=== PATIENT | male | born 1955 ===

== ENCOUNTER 2017-07-16 20:33 | Emergency (ER) | payer OTHER ==
[~2017-07-16] VITALS: Ht 167.6 cm; Wt 88.9 kg
[~2017-07-16 20:33] MED LIST: ASPI325 PO; ASPI81CH PO; ASPI81EC PO; CARI350 PO; CELE100 PO; CHLO25B PO; DULO60 PO; ERYT.5TO OD; FURO40 PO; GABA400 PO; GABA600 PO; GABA800 PO; Glucophage1000 MG PO; HYDACE5 PO; HYDR-86; Hygroton50 MG PO; INS70/30PN SC; INSDET100 SQ; INSULANPEN; LEVFLO500 PO; LEVSOD100 PO; LEVSOD125 PO; LEVSOD137 PO; LISHYD2012 PO; LISI20 PO; LISINOPRIL PO; LOVA20 PO; Lantus100 UNIT/1 SC; MEDICAL MARIJUANA; METF500 PO; MULVITMIND PO; Micro-K10 MEQ PO; NEBI10 PO; NEBI5 PO; Norco 5-325 Ta1 EACH PO; Norco 7.5-3251 EACH PO; Nortriptyline H50 MG PO; Novolog100 UNIT/1 SC; OXYACE5T PO; POTA10T PO; PRAV20 PO; PRAVASTATIN 40MG PO; Penlac6.6 ML TP; Pravastatin Sod40 MG PO; TERB250 PO; TIOT18 INH; VITAMIN D35000 UNIT PO; Ventolin/Prove6.7 GM INH; Zestril40 MG PO
[2017-07-16] MEDS ORDERED: CHLO25B PO (20:47)
[2017-07-16] MEDS ORDERED: Norco 5-325 Ta1 EACH PO (22:57)
== END 2017-07-16 23:28 | disposition home or self-care (01) ==
LOC: ER 20:33
DX: S46.022A Laceration of muscle(s) and tendon(s) of the rotator cuff of left shoulder, initial encounter (principal); S16.1XXA Strain of muscle, fascia and tendon at neck level, initial encounter; E11.9 Type 2 diabetes mellitus without complications; I10 Essential (primary) hypertension; Z96.653 Presence of artificial knee joint, bilateral; Z87.891 Personal history of nicotine dependence; Z79.82 Long term (current) use of aspirin; Z79.899 Other long term (current) drug therapy; Z79.4 Long term (current) use of insulin; W18.30XA Fall on same level, unspecified, initial encounter
CPT/HCPCS: 29105; 72125; 73030; 73200; 96374; 96375; 96376; 99284; J1170; J2405

== ENCOUNTER 2018-01-19 21:03 | Emergency (ER) | payer OTHER ==
[~2018-01-19] VITALS: Ht 165.1 cm; Wt 90.7 kg
== END 2018-01-20 01:53 | disposition home or self-care (01) ==
LOC: ER 21:03
DX: S09.90XA Unspecified injury of head, initial encounter (principal); S80.212A Abrasion, left knee, initial encounter; M54.2 Cervicalgia; M25.512 Pain in left shoulder; W18.30XA Fall on same level, unspecified, initial encounter; E11.42 Type 2 diabetes mellitus with diabetic polyneuropathy; E66.9 Obesity, unspecified; I10 Essential (primary) hypertension; Z79.899 Other long term (current) drug therapy; Z79.4 Long term (current) use of insulin; Z79.84 Long term (current) use of oral hypoglycemic drugs; Z79.82 Long term (current) use of aspirin
CPT/HCPCS: 36415; 70450; 72125; 73030; 73562-LT; 99284-25

== ENCOUNTER 2018-04-15 11:54 | Emergency (ER) | payer OTHER ==
[~2018-04-15] VITALS: Ht 167.6 cm; Wt 90.7 kg
[2018-04-15] MEDS ORDERED: Roxicodone5 MG PO (14:45)
== END 2018-04-15 15:37 | disposition home or self-care (01) ==
LOC: ER 11:54
DX: S09.90XA Unspecified injury of head, initial encounter (principal); S40.012A Contusion of left shoulder, initial encounter; S10.93XA Contusion of unspecified part of neck, initial encounter; E11.42 Type 2 diabetes mellitus with diabetic polyneuropathy; I10 Essential (primary) hypertension; Z79.899 Other long term (current) drug therapy; Z79.4 Long term (current) use of insulin; Z79.51 Long term (current) use of inhaled steroids; Z79.82 Long term (current) use of aspirin; Z87.891 Personal history of nicotine dependence; W05.0XXA Fall from non-moving wheelchair, initial encounter
CPT/HCPCS: 70450; 72125; 73030; 96374; 99283-25; J1170

== ENCOUNTER → 2019-03-30 | Outpatient (CLI) | payer OTHER ==
[~2019-03-30] MED LIST changes: +Acetaminophen650 M1 PO; +Aspirin EC81 MG PO; +BACL10 PO; +IBUP600 PO; -INSULANPEN; +INSULANPEN SC; +K-Dur 20 meq T20 MEQ PO; +PREG100 PO; +Roxicodone5 MG PO
[2019-03-30 14:39] LABS: BASOPHILS ABSOLUTE AUTO 0.05 K/mm3 (0.00-0.23); BASOPHILS PERCENT AUTO 0 % (0-2); EOSINOPHILS ABSOLUTE AUTO 0.18 K/mm3 (0.00-0.68); EOSINOPHILS PERCENT AUTO 1 % (0-6); Hematocrit 47.6 % (37.0-53.0); Hemoglobin 16.4 g/dL (13.5-17.5); IMMATURE GRAN ABSOLUTE AUTO 0.07 K/mm3 (0.00-0.10); IMMATURE GRAN PERCENT AUTO 1 % (0-1); LYMPHOCYTES ABSOLUTE AUTO 2.37 K/mm3 (0.84-5.20); LYMPHOCYTES PERCENT AUTO 19 % (21-46); MONOCYTES ABSOLUTE AUTO 1.01 K/mm3 (0.16-1.47); MONOCYTES PERCENT AUTO 8 % (4-13); Mean Corpuscular HGB 30.8 pg (26.0-34.0); Mean Corpuscular HGB Conc 34.5 g/dL (31.5-36.5); Mean Corpuscular Volume 90 fL (80-100); Mean Platelet Volume 13.1 fL (9.1-12.4); NEUTROPHILS ABSOLUTE AUTO 8.87 K/mm3 (1.96-9.15); NEUTROPHILS PERCENT AUTO 71 % (41-73); Platelet Count 239 K/mm3 (150-400); RDW Standard Deviation 42.3 fL (35.1-46.3); Red Blood Cell Count 5.32 M/mm3 (4.30-5.90); White Blood Cell Count 12.55 K/mm3 (4.00-11.30)
[2019-03-30 14:42] LABS: Alanine Aminotransfer (ALT/SGP 17 U/L (12-78); Albumin, Blood 3.9 g/dL (3.4-5.0); Albumin/Globulin Ratio 0.9 (0.8-1.8); Alk Phos 101 U/L (50-136); Anion Gap 7 mmol/L (6-16); Aspartate Aminotrans (AST/SGOT 20 U/L (12-37); Bilirubin, Total 0.6 mg/dL (0.1-1.0); Blood Urea Nitrogen 26 mg/dL (8-24); CO2, Blood 21 mmol/L (21-32); Calcium, Blood 9.4 mg/dL (8.5-10.1); Chloride, Blood 102 mmol/L (98-108); Globulin, Blood 4.5 g/dL (2.2-4.0); Glomerular Filtration Rate >60 (60-); Glucose, Blood 313 mg/dL (70-99); Potassium, Blood 5.5 mmol/L (3.5-5.5); Sodium, Blood 130 mmol/L (136-145); Total Protein, Blood 8.4 g/dL (6.4-8.2)
[2019-03-30 14:43] LABS: Beta-hydroxybutyrate 2.2 mg/dL (0.2-2.8)
== END | disposition home or self-care (01) ==
LOC: LAB 13:24 → LAB SHORT 13:24
PROVIDERS: Family Medicine
DX: E11.69 Type 2 diabetes mellitus with other specified complication (principal)
CPT/HCPCS: 80053; 82010; 85025

== ENCOUNTER 2019-04-12 07:07 | Day surgery (SDC) | payer OTHER ==
[~2019-04-12] VITALS: Ht 167.6 cm; Wt 95.3 kg
--- NOTE | 2019-04-12 08:08 | NUR ---
04/12/19 0808 David Lyon FIRST IV ATTEMPT ON LEFT HAND, IV INFILTRATED. PT TOLERATED IV START WELL. PT BLOOD SUGAR 308 AT 0800, DR. COLLINS AWARE.
--- NOTE | 2019-04-12 09:23 | NUR ---
04/12/19 0923 Sharron Lockett PT. WAITING IN NE FOR [place]. PT. DRINKING COFFEE, JUICE, & COOKIES. WARM BLANKET GIVEN. PT. GIVEN HOME DISCHARGE INSTRUCTIONS WITH UNDERSTANDING. EYE KIT & INSTRUCTIONS IN PT.'S WALKER.
== END 2019-04-12 09:15 | disposition home or self-care (01) ==
LOC: ORSCSDS 07:07
PROVIDERS: Ophthalmology
PROC: 08RK3JZ Replacement of Left Lens with Synthetic Substitute, Percutaneous Approach (ICD-10-PCS; principal; 2019-04-12 08:30)
DX: H25.12 Age-related nuclear cataract, left eye (principal); I10 Essential (primary) hypertension; G47.33 Obstructive sleep apnea (adult) (pediatric); E11.9 Type 2 diabetes mellitus without complications; Z79.899 Other long term (current) drug therapy; Z79.4 Long term (current) use of insulin; Z79.82 Long term (current) use of aspirin; E66.9 Obesity, unspecified; Z68.33 Body mass index [BMI] 33.0-33.9, adult
CPT/HCPCS: 82947; J1815; J2001; J2250; J3010; J3301; J7040; J7120; V2632

== ENCOUNTER 2019-05-31 08:27 | Day surgery (SDC) | payer OTHER ==
[~2019-05-31] VITALS: Ht 170.2 cm; Wt 97.8 kg
[~2019-05-31 08:27] MED LIST changes: +BENGAY113 GM; +K-Dur20 MEQ PO; +MIRALAX17 GM PO; +NOVOLOG100 UNIT/1; +ROSADAN45 GM; +VITAMIN D35000 UNI2 PO; +ZESTRIL40 M1 PO
== END 2019-05-31 11:06 | disposition home or self-care (01) ==
LOC: ORSCSDS 08:27
PROVIDERS: Ophthalmology
PROC: 08RJ3JZ Replacement of Right Lens with Synthetic Substitute, Percutaneous Approach (ICD-10-PCS; principal; 2019-05-31 10:00)
DX: H25.11 Age-related nuclear cataract, right eye (principal); E11.36 Type 2 diabetes mellitus with diabetic cataract; I10 Essential (primary) hypertension; Z79.82 Long term (current) use of aspirin; Z79.4 Long term (current) use of insulin; Z79.899 Other long term (current) drug therapy
CPT/HCPCS: 82947; J2001; J2250; J3010; J3301; J7040; V2632

== ENCOUNTER 2020-03-27 18:15 | Emergency (ER) | payer OTHER ==
[~2020-03-27] VITALS: Ht 167.6 cm; Wt 95.2 kg
== END 2020-03-27 23:23 | disposition home or self-care (01) ==
LOC: ER 18:15
DX: M25.512 Pain in left shoulder (principal); M54.2 Cervicalgia; R42 Dizziness and giddiness; E11.40 Type 2 diabetes mellitus with diabetic neuropathy, unspecified; I10 Essential (primary) hypertension; E11.36 Type 2 diabetes mellitus with diabetic cataract; H26.9 Unspecified cataract; Z87.891 Personal history of nicotine dependence; Z79.82 Long term (current) use of aspirin; Z79.899 Other long term (current) drug therapy; Z79.4 Long term (current) use of insulin; W01.198A Fall on same level from slipping, tripping and stumbling with subsequent striking against other object, initial encounter
CPT/HCPCS: 70450; 72125; 73030; 96372; 99283-25; A9270; J1885

== ENCOUNTER 2020-09-04 19:30 | Inpatient (IN) | payer OTHER, MEDICARE ==
[~2020-09-04] VITALS: Ht 167.6 cm; Wt 90.5 kg
[~2020-09-04 19:30] MED LIST changes: +GLUCOPHAGE1000 M1 PO; -NOVOLOG100 UNIT/1; +NOVOLOG100 UNIT/2 SC; +PREG150 PO
[2020-09-04 20:27] LABS: BASOPHILS ABSOLUTE AUTO 0.02 K/mm3 (0.00-0.23); BASOPHILS PERCENT AUTO 0 % (0-2); EOSINOPHILS ABSOLUTE AUTO 0.14 K/mm3 (0.00-0.68); EOSINOPHILS PERCENT AUTO 2 % (0-6); Hematocrit 48.2 % (37.0-53.0); Hemoglobin 16.3 g/dL (13.5-17.5); IMMATURE GRAN ABSOLUTE AUTO 0.02 K/mm3 (0.00-0.10); IMMATURE GRAN PERCENT AUTO 0 % (0-1); LYMPHOCYTES ABSOLUTE AUTO 1.06 K/mm3 (0.84-5.20); LYMPHOCYTES PERCENT AUTO 15 % (21-46); MONOCYTES ABSOLUTE AUTO 0.69 K/mm3 (0.16-1.47); MONOCYTES PERCENT AUTO 9 % (4-13); Mean Corpuscular HGB 29.8 pg (26.0-34.0); Mean Corpuscular HGB Conc 33.8 g/dL (31.5-36.5); Mean Corpuscular Volume 88 fL (80-100); Mean Platelet Volume 11.6 fL (9.1-12.4); NEUTROPHILS PERCENT AUTO 74 % (41-73); Platelet Count 234 K/mm3 (150-400); RDW Standard Deviation 45.3 fL (35.1-46.3); Red Blood Cell Count 5.47 M/mm3 (4.30-5.90); White Blood Cell Count 7.33 K/mm3 (4.00-11.30)
[2020-09-04 20:42] LABS: Alanine Aminotransfer (ALT/SGP 25 U/L (12-78); Albumin, Blood 3.4 g/dL (3.4-5.0); Albumin/Globulin Ratio 0.7 (0.8-1.8); Alk Phos 102 U/L (50-136); Anion Gap 6 mmol/L (6-16); Aspartate Aminotrans (AST/SGOT 34 U/L (12-37); Bilirubin, Total 0.3 mg/dL (0.1-1.0); Blood Urea Nitrogen 16 mg/dL (8-24); Bun/Creatinine Ratio 17.8 (12.0-20.0); CO2, Blood 25 mmol/L (21-32); Calcium, Blood 8.8 mg/dL (8.5-10.1); Chloride, Blood 103 mmol/L (98-108); Globulin, Blood 4.7 g/dL (2.2-4.0); Glomerular Filtration Rate >60 (60-); Glucose, Blood 160 mg/dL (70-99); Potassium, Blood 4.6 mmol/L (3.5-5.5); Sodium, Blood 134 mmol/L (136-145); Total Protein, Blood 8.1 g/dL (6.4-8.2); Troponin I <0.015 ng/mL (0.000-0.040)
[2020-09-05 04:45] LABS: BASOPHILS ABSOLUTE AUTO 0.02 K/mm3 (0.00-0.23); BASOPHILS PERCENT AUTO 0 % (0-2); EOSINOPHILS ABSOLUTE AUTO 0.11 K/mm3 (0.00-0.68); EOSINOPHILS PERCENT AUTO 2 % (0-6); Hematocrit 44.1 % (37.0-53.0); Hemoglobin 14.4 g/dL (13.5-17.5); IMMATURE GRAN ABSOLUTE AUTO 0.01 K/mm3 (0.00-0.10); IMMATURE GRAN PERCENT AUTO 0 % (0-1); LYMPHOCYTES ABSOLUTE AUTO 1.37 K/mm3 (0.84-5.20); LYMPHOCYTES PERCENT AUTO 23 % (21-46); MONOCYTES ABSOLUTE AUTO 0.75 K/mm3 (0.16-1.47); MONOCYTES PERCENT AUTO 13 % (4-13); Mean Corpuscular HGB 29.7 pg (26.0-34.0); Mean Corpuscular HGB Conc 32.7 g/dL (31.5-36.5); Mean Corpuscular Volume 91 fL (80-100); Mean Platelet Volume 11.3 fL (9.1-12.4); NEUTROPHILS ABSOLUTE AUTO 3.67 K/mm3 (1.96-9.15); NEUTROPHILS PERCENT AUTO 62 % (41-73); Platelet Count 198 K/mm3 (150-400); RDW Coefficient Variation 14.3 % (11.7-14.2); RDW Standard Deviation 47.5 fL (35.1-46.3); Red Blood Cell Count 4.85 M/mm3 (4.30-5.90); White Blood Cell Count 5.93 K/mm3 (4.00-11.30)
[2020-09-05 05:03] LABS: Alanine Aminotransfer (ALT/SGP 24 U/L (12-78); Albumin, Blood 2.9 g/dL (3.4-5.0); Albumin/Globulin Ratio 0.7 (0.8-1.8); Alk Phos 84 U/L (50-136); Anion Gap 3 mmol/L (6-16); Aspartate Aminotrans (AST/SGOT 23 U/L (12-37); Bilirubin, Total 0.3 mg/dL (0.1-1.0); Blood Urea Nitrogen 13 mg/dL (8-24); Bun/Creatinine Ratio 13.2 (12.0-20.0); CO2, Blood 30 mmol/L (21-32); Calcium, Blood 8.4 mg/dL (8.5-10.1); Chloride, Blood 105 mmol/L (98-108); Creatinine, Blood 0.98 mg/dL (0.60-1.20); Glomerular Filtration Rate >60 (60-); Glucose, Blood 78 mg/dL (70-99); Potassium, Blood 4.5 mmol/L (3.5-5.5); Sodium, Blood 138 mmol/L (136-145); Total Protein, Blood 6.9 g/dL (6.4-8.2)
--- NOTE | 2020-09-05 05:18 | NUR ---
SHIFT SUMMARY RECIEVED REPORT FROM CONSTANCE ROBIN. PATIENT TO ROOM FROM ED @0115, SLID FROM STRETCHER TO THE BED. PATIENT ON 4L 02 VIA NC 02 SATS 96% WOULD DROP TO LOWER 90s WHILE SLEEPING. PATIENT IS A 2 PERSON ASSIST WITH REPOSITIONING AND BRIEF CHANGES. PATIENT COMPLAINING OF 9/10 LEFT SHOULDER PAIN THAT HE STATES IS A CHRONIC PAIN THAT WAS EXACERBATED BY HIS FALL, MEDICATED PER EMAR. PATIENT DENIES CP/PRESSURE. LEGS BANDAGED FROM PROCEDURE PATIENT HAD 09/04, BANDAGES C/D/I. CAP REFILL <3 SEC ON BLE, WARM, RED, PULSES PRESENT. VSS, NO ACUTE CHANGES. CALL LIGHT IN REACH, BED ALARM ON.
--- NOTE | 2020-09-05 15:50 | NUR ---
Spiritual care visit conducted. Patient is sitting on a chair and alert. Patient tells me about his medical history, his family history and his spiritual journey. Patient has come recovered from some very trying circumstances and continues to have a deep hope and ross. I reinforce helpful attitudes and practices and provide therapeutic listening and prayer. Patient responds well and shows signs of an even greater resolve to work toward wholeness. I will continue remain available to patient and family.
--- NOTE | 2020-09-05 18:21 | NUR ---
SHIFT SUMMARY PATIENT IS ALERT AND ORIENTED, COOPERATIVE WITH CARE. VSS, AT REST PATIENT MAINTAINS O2 SATS IN MID-90S. ON 4 L VIA NASAL CANNULA AT START OF SHIFT, TITRATED DOWN TO 3 L. PATIENT WORKED WITH PT/OT THIS SHIFT. UP WITH THIS RN TO BATHROOM WITH FRONT WHEEL WALKER. PATIENT WAS VISIBLY FATIGUED, BUT WAS ABLE TO AMBULATE SAFELY TO THE BATHROOM AND BACK, WITH O2 SAT DECREASING TO MID/HIGH 80S WITH ACTIVITY. AT REST WOULD INCREASE QUICKLY TO LOW 90S AGAIN. PATIENT WAS HYPOGLYCEMIC AT START OF SHIFT, PO INTAKE ENCOURAGED AND IMPROVEMENT ON BLOOD SUGAR RECHECK NOTED. PATIENT COMPLAINED OF SHOULDER PAIN T/O DAY, MEDICATED PER EMAR. PATIENT ENDORSES SEEING DR. SANTOS IN OFFICE YESTERDAY, STERI STRIPS NOTED ON BOTH LOWER EXTREMITIES.
--- NOTE | 2020-09-05 22:21 | NUR ---
ASSUMED CARE AT 1900 PT LAYING IN BED, IS ALERT/ORIENTED X4, AND ABLE TO MAKE HIS NEEDS KNOWN. SPO2 >92% ON 3L NC; SPO2 DECLINED TO MID 80'S DURING EXERTION TO BATHROOM BUT WAS ABLE TO RECOVER ON 3L ONCE ABLE TO REST. LIMITED MOVEMENT NOTED TO LT SHOULDER, PT STATES IT HAS BEEN PAINFUL SINCE BEFORE ADMISSION INVOLVING HIS ROTATER CUFF; PAIN 8/10; PRN FENTANYL AVAILABLE AND GIVEN BRINGING PAIN DOWN TO A 4. HR 60'S. BP STABLE. AFIBRILE. STERI STRIPS NOTED TO BLE. FIRST DOSE OF REMDESIVIR STARTED. SEE SHIFT ASSESSMENT FOR FULL ASSESSMENT.
[2020-09-06 04:10] LABS: BASOPHILS ABSOLUTE AUTO 0.01 K/mm3 (0.00-0.23); BASOPHILS PERCENT AUTO 0 % (0-2); EOSINOPHILS ABSOLUTE AUTO 0.01 K/mm3 (0.00-0.68); EOSINOPHILS PERCENT AUTO 0 % (0-6); Hematocrit 44.8 % (37.0-53.0); Hemoglobin 14.5 g/dL (13.5-17.5); IMMATURE GRAN ABSOLUTE AUTO 0.01 K/mm3 (0.00-0.10); IMMATURE GRAN PERCENT AUTO 0 % (0-1); LYMPHOCYTES ABSOLUTE AUTO 1.12 K/mm3 (0.84-5.20); LYMPHOCYTES PERCENT AUTO 23 % (21-46); MONOCYTES ABSOLUTE AUTO 0.53 K/mm3 (0.16-1.47); MONOCYTES PERCENT AUTO 11 % (4-13); Mean Corpuscular HGB 29.3 pg (26.0-34.0); Mean Corpuscular HGB Conc 32.4 g/dL (31.5-36.5); Mean Corpuscular Volume 91 fL (80-100); Mean Platelet Volume 11.3 fL (9.1-12.4); NEUTROPHILS ABSOLUTE AUTO 3.25 K/mm3 (1.96-9.15); NEUTROPHILS PERCENT AUTO 66 % (41-73); Platelet Count 206 K/mm3 (150-400); RDW Coefficient Variation 13.7 % (11.7-14.2); Red Blood Cell Count 4.95 M/mm3 (4.30-5.90); White Blood Cell Count 4.93 K/mm3 (4.00-11.30)
[2020-09-06 04:29] LABS: Anion Gap 3 mmol/L (6-16); Blood Urea Nitrogen 19 mg/dL (8-24); CO2, Blood 30 mmol/L (21-32); Calcium, Blood 8.6 mg/dL (8.5-10.1); Chloride, Blood 103 mmol/L (98-108); Creatinine, Blood 0.86 mg/dL (0.60-1.20); Glomerular Filtration Rate >60 (60-); Glucose, Blood 176 mg/dL (70-99); Potassium, Blood 5.2 mmol/L (3.5-5.5); Sodium, Blood 136 mmol/L (136-145)
--- NOTE | 2020-09-06 05:27 | NUR ---
END OF SHIFT SUMMARY PT SLEPT OFF AND ON ALL SHIFT, IS ALERT/ORIENTED AND ABLE TO MAKE HIS NEEDS KNOWN. PT PAIN REACHED 9/10 TWICE T/O NIGHT OT LT SHOULDER; PRN FENTANYL AVAILABLE AND GIVEN BRINGING SCORE DOWN TO 0-1. SPO2 >90% ON 5L NC, NONPRODUCTIVE COUGH NOTED. HR 60-70. BP STABLE. AFIBRILE. STERI STRIPS TO BLE INTACT. WILL REPORT TO AM RN WHEN AVAILABLE.
--- NOTE | 2020-09-06 17:09 | NUR ---
SHIFT SUMMARY NO ACUTE EVENTS THIS SHIFT, VSS. PATIENT IS ALERT AND ORIENTED, COOPERATIVE WITH CARE. PATIENT O2 MAINTAINED IN 90S, O2 TITRATED FROM 5 L VIA NASAL CANNULA DOWN TO 2 L BY END OF SHIFT. PATIENT WORKED WITH PT/OT THIS SHIFT. PATIENT ENDORSED INCREASED PAIN WITH ACTIVITY, CONTINUED TO COMPLAIN OF 7/10 PAIN AFTER PERCOCET 5MG ADMINISTRATION PER EMAR. DR. ANN NOTIFIED, ORDERS FOR INCREASED OXYCODONE DOSAGE TO 10 MG. PATIENT DENIES CHEST PAIN THIS SHIFT.
[2020-09-07 03:52] LABS: BASOPHILS ABSOLUTE AUTO 0.02 K/mm3 (0.00-0.23); BASOPHILS PERCENT AUTO 0 % (0-2); EOSINOPHILS ABSOLUTE AUTO 0.02 K/mm3 (0.00-0.68); EOSINOPHILS PERCENT AUTO 0 % (0-6); Hematocrit 44.1 % (37.0-53.0); Hemoglobin 14.3 g/dL (13.5-17.5); IMMATURE GRAN ABSOLUTE AUTO 0.02 K/mm3 (0.00-0.10); IMMATURE GRAN PERCENT AUTO 0 % (0-1); LYMPHOCYTES ABSOLUTE AUTO 1.44 K/mm3 (0.84-5.20); LYMPHOCYTES PERCENT AUTO 23 % (21-46); MONOCYTES ABSOLUTE AUTO 0.59 K/mm3 (0.16-1.47); MONOCYTES PERCENT AUTO 10 % (4-13); Mean Corpuscular HGB 28.6 pg (26.0-34.0); Mean Corpuscular HGB Conc 32.4 g/dL (31.5-36.5); Mean Corpuscular Volume 88 fL (80-100); Mean Platelet Volume 11.5 fL (9.1-12.4); NEUTROPHILS PERCENT AUTO 66 % (41-73); Platelet Count 224 K/mm3 (150-400); RDW Coefficient Variation 13.5 % (11.7-14.2); RDW Standard Deviation 43.4 fL (35.1-46.3); White Blood Cell Count 6.19 K/mm3 (4.00-11.30)
[2020-09-07 04:15] LABS: Albumin, Blood 2.8 g/dL (3.4-5.0); Anion Gap 3 mmol/L (6-16); Blood Urea Nitrogen 19 mg/dL (8-24); Bun/Creatinine Ratio 22.2 (12.0-20.0); CO2, Blood 30 mmol/L (21-32); Calcium, Blood 8.4 mg/dL (8.5-10.1); Chloride, Blood 103 mmol/L (98-108); Creatinine, Blood 0.85 mg/dL (0.60-1.20); Glomerular Filtration Rate >60 (60-); Glucose, Blood 123 mg/dL (70-99); Phosphorus, Blood 3.1 mg/dL (2.5-4.9); Potassium, Blood 4.2 mmol/L (3.5-5.5); Sodium, Blood 136 mmol/L (136-145)
--- NOTE | 2020-09-07 05:53 | NUR ---
SHIFT SUMMARY NO ACUTE CHANGES THIS SHIFT. PT A&OX3. SP02>90% ON 2L NC, INCREASED TO 5L NC WHILE SLEEPING. TELEMTRY READS SR W/ BBB, HR 60'S. PT C/O OF 8/10 L SHOULDER PAIN. CALLED FOR PAIN MEDS Q4H PROMPTLY. PT GIVEN HEATING PAD WITH SLIGHT RELIEF. PT USED URINAL AT BEDSIDE. PT GIVEN BEDBATH THIS SHIFT. CALL LIGHT IN REACH. WILL GIVE REPORT TO ONCOMING NURSE.
--- NOTE | 2020-09-07 17:34 | NUR ---
PT SUMMARY: STATUS CHANGED TO MEDICAL WITH NO TELE. PT REMAINS ON 2L OF O2 VIA NC, PT STILL HAS SOB/ WITH EXERTION DESATS TO LOW 80'S EARLIER WITH PT ACTIVITY WAS BUMP TO 6L OF O2 PT WAS ABLE TO TOLERATE AND RECOVERS QUICK. PT 1PA WITH THE WALKER, WAS UP IN THE CHAIR MOST OF THE SHIFT. PT TO RECIEVE 3RD DOSE OF REMDESIVIR TONIGHT. PT CONTINUES TO C/O LEFT SHOULDER PAIN, PERCOCET Q4 HRS GIVEN PRN FOR PAIN AND WAS EFFECTIVE. NO OTHER ISSUES FOR THE SHIFT, ALERT AND ORIENTED, CONTINENT OF BOTH BOWEL AND BLADDER, CALLS APPROPRIATELY. WILL REPORT TO ONCOMING SHIFT
--- NOTE | 2020-09-08 05:17 | NUR ---
SHIFT SUMMARY NO ACUTE CHANGES THIS SHIFT. PT A&OX4. SP02>92% ON 2L NC. O2 NEEDS INCREASED TO 5L WHILE SLEEPING. PT IS MEDICAL STATUS, NO TELEMETRY. VSS. PT C/O OF L SHOULDER PAIN, MEDICATED PER EMAR W/ OXYCODONE. PT SLEPT T/O NIGHT. CALL LIGHT IN REACH. WILL GIVE REPORT TO JAROCHO SAUER.
--- NOTE | 2020-09-08 13:10 | NUR ---
TRANSFER PT TRANSFERRING TO MEDICAL FLOOR, RM [id number]. REPORT GIVEN TO CONSTANCE CLAY. PT TRANSFERRING VIA WITH AIDE. ALL BELONGINGS SENT WITH PT UPSTAIRS.
--- NOTE | 2020-09-08 18:44 | NUR ---
SHIFT SUMMARY ARRIVED FROM PCU THIS AFTERNOON. PAINFUL L SHOULDER, GOT OXYCODONE X1. AO1 TO TRANSFER FROM TO BED. USING URINAL APPROPRIATELY. ON 1 L OXYGEN. CBGS HIGH, RECEIVED INSULIN. TOOK MEDS PRESCRIBED, CALL LIGHT IN REACH, GIVING REPORT TO NIGHT NURSE
--- NOTE | 2020-09-09 06:04 | NUR ---
SHIFT SUMMARY- PT. A&OX4, COVID POS. C/O L SHOULDER PAIN AND SOME WEAKNESS NOTED. MEDICATED SEVERAL TIMES DURING THE NIGHT PER EMAR. PT. REPORTS GOOD EFFECT AT TIMES AND OTHER TIMES MINIMAL. PT. USES URINAL AT THE BEDSIDE W/O DIFFICULTY. COMPLETED FINAL DOSE OF REMDESIVIR LAST NIGHT. ON 1L NC, VSS. NO OTHER COMPLAINTS DURING THE NIGHT. CALL LIGHT WITHIN REACH AND SIDE RAILS UPX2. WILL CONT TO MONITOR.
[2020-09-09] MEDS ORDERED: DECADRON (15:28)
[2020-09-09] MEDS ORDERED: GUAI600T33 PO (15:32)
[2020-09-09] MEDS ORDERED: Percocet 10-321 EACH PO (15:33)
[2020-09-09] MEDS ORDERED: XARELTO (15:37)
[2020-09-09] MEDS ORDERED: XARELTO15 MG PO (15:41)
--- NOTE | 2020-09-09 17:54 | NUR ---
2228 PT DISCHARGED HOME VIA W/C TRANSPORT. IV REMOVED. D/C INSTRUCTIONS REVIEWED WITH PT AND COPY PROVIDED. HARD SCRIPT FOR PERCOCET WITH PT. PORTABLE O2 DELIVERED PRIOR TO D/C. NO NEW CHANGES OR CONCERNS.
== END 2020-09-09 17:46 | disposition home health service (06) | DRG 177 ==
LOC: ER 19:30 → PCU 23:49 → ER 09-05 00:12 → PCU 09-05 00:12 → MEDS 09-08 13:19
PROVIDERS: Family Medicine; Internal Medicine; Physician Assistant; ADMIT Internal Medicine
PROC: XW033E5 Introduction of Remdesivir Anti-infective into Peripheral Vein, Percutaneous Approach, New Technology Group 5 (ICD-10-PCS; principal; 2020-09-05)
PROC: 8E0ZXY6 Isolation (ICD-10-PCS; 2020-09-05)
DX: U07.1 COVID-19 (principal); J12.82 Pneumonia due to coronavirus disease 2019; J96.01 Acute respiratory failure with hypoxia; I26.99 Other pulmonary embolism without acute cor pulmonale; E11.42 Type 2 diabetes mellitus with diabetic polyneuropathy; E11.51 Type 2 diabetes mellitus with diabetic peripheral angiopathy without gangrene; E78.5 Hyperlipidemia, unspecified; I10 Essential (primary) hypertension; E66.9 Obesity, unspecified; G89.29 Other chronic pain; M75.102 Unspecified rotator cuff tear or rupture of left shoulder, not specified as traumatic; M54.9 Dorsalgia, unspecified; E03.9 Hypothyroidism, unspecified; Z96.653 Presence of artificial knee joint, bilateral; Z98.1 Arthrodesis status; Z98.42 Cataract extraction status, left eye; Z98.41 Cataract extraction status, right eye; Z98.890 Other specified postprocedural states; Z87.891 Personal history of nicotine dependence; Z68.35 Body mass index [BMI] 35.0-35.9, adult; Z79.4 Long term (current) use of insulin; Z79.899 Other long term (current) drug therapy; Z79.1 Long term (current) use of non-steroidal anti-inflammatories (NSAID); Z99.3 Dependence on wheelchair; Z95.820 Peripheral vascular angioplasty status with implants and grafts
CPT/HCPCS: 36415; 70450; 71045; 71275; 72125; 73030; 80048; 80053; 80069; 82947; 83880; 84484; 85025; 93005; 93010; 94761; 94762; 97110; 97116; 97162; 97166; 97530; 97535; 99283-25; A9270; J0456; J2270; J2405; J3010; J7030; J7050; Q9967

== ENCOUNTER 2020-09-12 19:23 | Observation (INO) | payer OTHER ==
[~2020-09-12] VITALS: Ht 167.6 cm; Wt 93.8 kg
[~2020-09-12 19:23] MED LIST changes: +DECADRON; +GUAI600T33 PO; +Percocet 10-321 EACH PO; +XARELTO; +XARELTO15 MG PO
[2020-09-12 22:00] LABS: BASOPHILS ABSOLUTE AUTO 0.01 K/mm3 (0.00-0.23); BASOPHILS PERCENT AUTO 0 % (0-2); EOSINOPHILS PERCENT AUTO 0 % (0-6); Hematocrit 47.9 % (37.0-53.0); Hemoglobin 15.7 g/dL (13.5-17.5); IMMATURE GRAN ABSOLUTE AUTO 0.04 K/mm3 (0.00-0.10); IMMATURE GRAN PERCENT AUTO 1 % (0-1); LYMPHOCYTES ABSOLUTE AUTO 0.64 K/mm3 (0.84-5.20); LYMPHOCYTES PERCENT AUTO 8 % (21-46); MONOCYTES ABSOLUTE AUTO 0.23 K/mm3 (0.16-1.47); MONOCYTES PERCENT AUTO 3 % (4-13); Mean Corpuscular HGB Conc 32.8 g/dL (31.5-36.5); Mean Corpuscular Volume 88 fL (80-100); Mean Platelet Volume 11.9 fL (9.1-12.4); NEUTROPHILS ABSOLUTE AUTO 7.22 K/mm3 (1.96-9.15); NEUTROPHILS PERCENT AUTO 89 % (41-73); Platelet Count 292 K/mm3 (150-400); RDW Coefficient Variation 13.7 % (11.7-14.2); RDW Standard Deviation 44.7 fL (35.1-46.3); Red Blood Cell Count 5.42 M/mm3 (4.30-5.90); White Blood Cell Count 8.14 K/mm3 (4.00-11.30)
[2020-09-12 22:15] LABS: Alanine Aminotransfer (ALT/SGP 83 U/L (12-78); Albumin, Blood 3.2 g/dL (3.4-5.0); Albumin/Globulin Ratio 0.7 (0.8-1.8); Alk Phos 102 U/L (50-136); Anion Gap 3 mmol/L (6-16); Aspartate Aminotrans (AST/SGOT 23 U/L (12-37); Bilirubin, Total 0.3 mg/dL (0.1-1.0); Blood Urea Nitrogen 50 mg/dL (8-24); Bun/Creatinine Ratio 46.3 (12.0-20.0); CO2, Blood 27 mmol/L (21-32); Calcium, Blood 8.1 mg/dL (8.5-10.1); Chloride, Blood 99 mmol/L (98-108); Creatinine, Blood 1.08 mg/dL (0.60-1.20); Globulin, Blood 4.5 g/dL (2.2-4.0); Glomerular Filtration Rate >60 (60-); Glucose, Blood 393 mg/dL (70-99); Potassium, Blood 6.6 mmol/L (3.5-5.5); Sodium, Blood 129 mmol/L (136-145); Total Protein, Blood 7.7 g/dL (6.4-8.2)
[2020-09-12] MEDS ORDERED: DULO60 PO (22:26)
[2020-09-12] MEDS ORDERED: TRULICITY0.75 MG/01 SC (22:26)
[2020-09-12] MEDS ORDERED: FENO54 PO (22:28)
[2020-09-12] MEDS ORDERED: NEBI10 PO (22:30)
[2020-09-12 23:25] LABS: Chloride (POC) 101 mmol/L (98-108); Creatinine (POC) 1.1 mg/dL (0.8-1.3); Glucose (ISTAT POC) 289 mg/dL (70-99); Hemoglobin (POC) 17.3 g/dL (13.5-17.5); Potassium (POC) 6.2 mmol/L (3.5-5.5); Sodium (POC) 134 mmol/L (135-148); Total CO2 (POC) 29 mmol/L (21-32)
[2020-09-13 01:40] LABS: Influenza A, PCR NEGATIVE (NEGATIVE); Influenza B, PCR NEGATIVE (NEGATIVE); Resp Syncytial Virus, PCR NEGATIVE (NEGATIVE)
[2020-09-13 01:43] LABS: SARS-Cov-2 (COVID-19) PCR, MMC POSITIVE (NEGATIVE)
[2020-09-13 04:49] LABS: Hematocrit 45.6 % (37.0-53.0); Hemoglobin 15.2 g/dL (13.5-17.5); Mean Corpuscular HGB 29.5 pg (26.0-34.0); Mean Corpuscular HGB Conc 33.3 g/dL (31.5-36.5); Mean Corpuscular Volume 88 fL (80-100); Mean Platelet Volume 11.3 fL (9.1-12.4); Platelet Count 282 K/mm3 (150-400); RDW Coefficient Variation 13.6 % (11.7-14.2); RDW Standard Deviation 44.2 fL (35.1-46.3); Red Blood Cell Count 5.16 M/mm3 (4.30-5.90); White Blood Cell Count 9.37 K/mm3 (4.00-11.30)
[2020-09-13 05:23] LABS: Anion Gap 4 mmol/L (6-16); Blood Urea Nitrogen 45 mg/dL (8-24); Bun/Creatinine Ratio 44.1 (12.0-20.0); CO2, Blood 29 mmol/L (21-32); Calcium, Blood 8.4 mg/dL (8.5-10.1); Chloride, Blood 101 mmol/L (98-108); Creatinine, Blood 1.02 mg/dL (0.60-1.20); Glomerular Filtration Rate >60 (60-); Glucose, Blood 184 mg/dL (70-99); Potassium, Blood 5.6 mmol/L (3.5-5.5); Sodium, Blood 134 mmol/L (136-145)
--- NOTE | 2020-09-13 06:13 | NUR ---
LAB PT K+ THIS AM WAS 5.6. CALL PLACED TO MD MCGILL. MD MCGILL W/ INSTRUCTIONS TO CONTINUE TO MONITOR.
--- NOTE | 2020-09-13 08:00 | NUR ---
PT LAYING IN BED AWAKE A/OX3, PLEASANT AND COOPERATIVE WITH CARE, FOLLOWS COMMANDS WELL, REPORTS PAIN IN LEFT SHOULDER, HAS HEATING PAD IN PLACE, AND WAS GIVEN PAIN MEDS EARLIER, LUNGS ARE CLEAR BUT DIM T/O, RESP EVEN AND UNLABORED, NO COUGH NOTED, HRR, TELE IN PLACE RUNNING SR WITH BBB PER MONITOR, SEE STRIP, NO EDEMA NOTED, PPP FAINT, CAP REFILL <SEC, VS STABLE, AFEBRILE, IV SITE IS CLEAR AND PATENT, BTX4, ABD FLAT SOFT NONTENDER, VOIDS WITHOUT DIFF, SKIN C/W/D, HAS DARKER SKIN TO B/L PARVEZ MULLINS, USING A WALKER TO AMBULATE, CASSANDRA, CALL LIGHT IN REACH.
[2020-09-13 15:12] LABS: Anion Gap 6 mmol/L (6-16); Blood Urea Nitrogen 37 mg/dL (8-24); Bun/Creatinine Ratio 42.9 (12.0-20.0); CO2, Blood 26 mmol/L (21-32); Calcium, Blood 7.6 mg/dL (8.5-10.1); Chloride, Blood 100 mmol/L (98-108); Creatinine, Blood 0.86 mg/dL (0.60-1.20); Glomerular Filtration Rate >60 (60-); Glucose, Blood 369 mg/dL (70-99); Potassium, Blood 4.7 mmol/L (3.5-5.5); Sodium, Blood 132 mmol/L (136-145); Thyroid Stimulating Hormone 0.914 uIU/mL (0.360-4.800)
--- NOTE | 2020-09-13 18:01 | NUR ---
PT LAYING IN BED MOST OF THE DAY, HAVING LEFT SHOULDER PAIN, KEEPING HIM MEDICATED, HE HAS HEATING PAD FOR IT, HE AGREED TO TRY ALTERNATING SOME ICE. NO FURTHER CHANGES THIS SHIFT. CALL LIGHT IN REACH.
--- NOTE | 2020-09-14 05:03 | NUR ---
SHIFT SUMMARY PT ALERT AND ORIENTED. VS STABLE. O2 SATS HAVE REMAINED ABOVE 90% ON 3L NC. BP STABLE. PT COMPLAINED OF PAIN TO LEFT SHOULDER AND MEDICATED NEEDED. ICE PACK AND HEAT PROVIDED PT REQUESTED TO SHOULDER. PT ABLE TO STAND AT BEDSIDE TO USE COMMODE OR WALK TO BATHROOM NEEDED TO VOID. NS INFUSING PER ORDERS. WILL CONTINUE TO MONITOR AND REPORT TO ONCOMING RN. CALL LIGHT IN REACH. PT CALLS APPROPRIATELY.
[2020-09-14 12:59] LABS: Anion Gap 0 mmol/L (6-16); Blood Urea Nitrogen 21 mg/dL (8-24); Bun/Creatinine Ratio 27.1 (12.0-20.0); CO2, Blood 34 mmol/L (21-32); Calcium, Blood 8.5 mg/dL (8.5-10.1); Chloride, Blood 104 mmol/L (98-108); Creatinine, Blood 0.78 mg/dL (0.60-1.20); Glomerular Filtration Rate >60 (60-); Glucose, Blood 109 mg/dL (70-99); Potassium, Blood 5.3 mmol/L (3.5-5.5); Sodium, Blood 138 mmol/L (136-145)
--- NOTE | 2020-09-14 19:43 | NUR ---
SUMMARY NO ACUTE CHANGES NOTED THROUGH THE DAY. PT DENIES CP/RESSURE, VSS, REMAINS ON 3 L O2 VIA NC, SPO2 >96%, OCCASIONAL NON PRODUCTIVE COUGH, DEEP BREATHING & COUGHING ENC. PT ALSO ENC TO SIT IN BEDSIDE CHAIR FOR MEALS, TOLERATING PO INTAKE, ENC TO INCREASE PO FLUIDS. BM X2 TODAY. CALLS FOR ASSISTANCE PRN. CALL LIGHT IN REACH, REPORT GIVEN TO LOLI NOLASCO
[2020-09-15 04:17] LABS: Anion Gap 2 mmol/L (6-16); Blood Urea Nitrogen 21 mg/dL (8-24); Bun/Creatinine Ratio 30.5 (12.0-20.0); CO2, Blood 31 mmol/L (21-32); Calcium, Blood 8.8 mg/dL (8.5-10.1); Chloride, Blood 103 mmol/L (98-108); Creatinine, Blood 0.69 mg/dL (0.60-1.20); Glomerular Filtration Rate >60 (60-); Glucose, Blood 166 mg/dL (70-99); Potassium, Blood 4.6 mmol/L (3.5-5.5); Sodium, Blood 136 mmol/L (136-145)
--- NOTE | 2020-09-15 04:27 | NUR ---
INSTRUCTOR WEAVING SUMMARY PT HAS MAINTAINED O2 SATS >94% ON 3L O2. PT HAS DENIED ANY CP OR NAUSEA THIS SHIFT. THE PT HAS SLEPT COMFORTABLY FOR MOST OF THE SHIFT ONLY AWAKING FOR PAIN MEDICATION FOR HIS LEFT SHOULDER. PT HAD ELEVATED BP W SBP AT 170 AFTER TRANSFERING FROM CHAIR TO BED BUT BP QUICKLY DROPPED ONCE AT REST. NO NEW S/S THIS SHIFT, WCTM.
--- NOTE | 2020-09-15 11:50 | NUR ---
PT WILL BE TRANSFERED TO ROOM 310. HE IS CUURENTLY AWAKE, ALERT & ORIENTED X4, SITTING UP IN A BED SIDE CHAIR, LUNCH TRAY SERVED. PAIN MEDICATION WILL BE GIVEN PER REQUEST BEFORE TRANSFER, REPORT GIVEN TO TEMI NOLASCO. CALL LIGHT IN REACH
--- NOTE | 2020-09-15 14:05 | NUR ---
1314 PT ARRIVED TO MEDICAL FLOOR FROM PCU VIA W/C.
--- NOTE | 2020-09-15 18:10 | NUR ---
SHIFT SUMMARY. A&OX4, ONE ASSIST WITH FWW TO BATHROOM. CONTINUES WITH 3L O2 NC. PT C/O CHRONIC PAIN TO L SHOULDER, MEDICATED PER EMAR. NO N/V. PT APPEARED TO SLEEP MOST OF THE AFTERNOON AFTER TRANSFER FROM PCU. NO NEW CHANGES OR CONCERNS.
--- NOTE | 2020-09-16 04:49 | NUR ---
FISHING MANAGER SUMMARY PT A/O X4. GETS UP WITH 1 ASSIST WITH FWW TO BATHROOM. PT CALLS APPROPRIATELY. MEDICATED FOR PAIN OVERNIGHT. DENIES NAUSEA, CHEST PAIN, DIZZINIESS. CONTINUES TO BE ON 3L O2 VIA NC SATTING IN THE LOW TO MID 90'S. SOB WITH EXERTION. VSS. CALL LIGHT WITHIN REACH. WILL CONTINUE TO MONITOR.
--- NOTE | 2020-09-16 17:07 | NUR ---
SHIFT SUMMARY PATIENT ALERT AND ORIENTED THIS SHIFT. NO ACUTE CHANGES THIS SHIFT. PATIENT WORKED WITH PT/OT. PATIENT CONTINUES TO BECOME SOB WITH ACTIVITY. PATIENT REMAINS ON 3L O2. PATIENT MEDICATED FOR PAIN IN HIS L SHOULDER THROUGHOUT THIS SHIFT. PATIENT UP TO CHAIR FOR MEALS, BACK TO BED BETWEEN MEALS. PATIENT SITTING UP WATCHING TELEVISION THOUGHOUT THIS SHIFT.
--- NOTE | 2020-09-17 04:43 | NUR ---
SHIFT SUMMARY: VSS. TEMP 99.0. 02 93% ON RA. PT WEARS 2L 02 NEEDED TONIGHT, BUT FREQUENTLY REMOVES NASAL CANNULA. AAOX4. REPORTS INFREQUENT COUGH PRODUCING SCANT AMT OF THICK SPUTUM. LS DIM. CHEST RISE EVEN, RESPS NON-LABORED. PT REMAINS IN BED TONIGHT. USES URINAL. MED X 2 FOR L SHOULDER PAIN, K-PAD IN PLACE TO L SHOULDER. NO ACUTE OVERNIGHT EVENTS. WCTM.
[2020-09-17] MEDS ORDERED: FLUDROCORTISON0.1 M1 PO (12:32)
[2020-09-17] MEDS ORDERED: HYDCOR10 PO (12:32)
[2020-09-17] MEDS ORDERED: Hydrocortisone5 MG PO (12:33)
[2020-09-17] MEDS ORDERED: Cortef5 MG PO (12:33)
--- NOTE | 2020-09-17 14:32 | NUR ---
Pt. is in isolation and the door closed , did not pay any visit, but prayed for the pt.
--- NOTE | 2020-09-17 16:43 | NUR ---
DISCHARGE SUMMARY PATIENT DISCHARGE TO [facility]. PATIENT ALERT AND ORIENTED. PATIENT IS A STANDBY ASSIST TO TRANSFER. PATIENT TRANSPORTED VIA WHEELCHAIR. IV REMOVED PRIOR TO DISCHARGE. PATIENT BELONGINGS WITH PATIENT UPON DISCHARGE. REPORT CALLED TO [facility] PRIOR TO DISCHARGE.
== END 2020-09-17 16:26 ==
LOC: ER 19:23 → MEDS 19:24 → PCU 19:24 → ER 09-13 01:24 → PCU 09-13 01:30 → MEDS 09-15 13:14
PROVIDERS: Emergency Medicine; Family Medicine; ADMIT Internal Medicine
DX: U07.1 COVID-19 (principal); J96.01 Acute respiratory failure with hypoxia; J96.11 Chronic respiratory failure with hypoxia; I26.99 Other pulmonary embolism without acute cor pulmonale; E87.5 Hyperkalemia; E87.1 Hypo-osmolality and hyponatremia; E11.51 Type 2 diabetes mellitus with diabetic peripheral angiopathy without gangrene; E11.42 Type 2 diabetes mellitus with diabetic polyneuropathy; I10 Essential (primary) hypertension; E03.9 Hypothyroidism, unspecified; E27.40 Unspecified adrenocortical insufficiency; R79.89 Other specified abnormal findings of blood chemistry; G47.33 Obstructive sleep apnea (adult) (pediatric); J12.82 Pneumonia due to coronavirus disease 2019; M75.120 Complete rotator cuff tear or rupture of unspecified shoulder, not specified as traumatic; M19.90 Unspecified osteoarthritis, unspecified site; Z79.01 Long term (current) use of anticoagulants; Z79.4 Long term (current) use of insulin; Z87.891 Personal history of nicotine dependence
CPT/HCPCS: 0241U; 36415; 80047; 80048; 80053; 80400; 82088; 82533; 82947; 84443; 85014; 85025; 85027; 93005; 93010; 96365; 96375; 97116; 97163; 97165; 97530; 97530-CO; 97535; 97535-CO; 99285-25; A9270; G0378; J0610; J0834; J1815; J1940; J2405; J3010; J7030; J7040

== ENCOUNTER 2020-11-07 17:04 | Emergency (ER) | payer OTHER ==
[~2020-11-07] VITALS: Ht 167.6 cm; Wt 96.2 kg
[~2020-11-07 17:04] MED LIST changes: +Cortef5 MG PO; +FENO54 PO; +FLUDROCORTISON0.1 M1 PO; +HYDCOR10 PO; +Hydrocortisone5 MG PO; +TRULICITY0.75 MG/01 SC
[2020-11-07 17:41] LABS: BASOPHILS ABSOLUTE AUTO 0.05 K/mm3 (0.00-0.23); BASOPHILS PERCENT AUTO 0 % (0-2); EOSINOPHILS ABSOLUTE AUTO 0.54 K/mm3 (0.00-0.68); EOSINOPHILS PERCENT AUTO 4 % (0-6); Hematocrit 46.1 % (37.0-53.0); IMMATURE GRAN ABSOLUTE AUTO 0.04 K/mm3 (0.00-0.10); IMMATURE GRAN PERCENT AUTO 0 % (0-1); LYMPHOCYTES ABSOLUTE AUTO 1.93 K/mm3 (0.84-5.20); LYMPHOCYTES PERCENT AUTO 15 % (21-46); MONOCYTES ABSOLUTE AUTO 0.76 K/mm3 (0.16-1.47); MONOCYTES PERCENT AUTO 6 % (4-13); Mean Corpuscular HGB 29.4 pg (26.0-34.0); Mean Corpuscular HGB Conc 32.5 g/dL (31.5-36.5); Mean Corpuscular Volume 90 fL (80-100); NEUTROPHILS ABSOLUTE AUTO 9.27 K/mm3 (1.96-9.15); NEUTROPHILS PERCENT AUTO 74 % (41-73); Platelet Count 260 K/mm3 (150-400); RDW Coefficient Variation 14.6 % (11.7-14.2); White Blood Cell Count 12.59 K/mm3 (4.00-11.30)
[2020-11-07 18:02] LABS: Alanine Aminotransfer (ALT/SGP 20 U/L (12-78); Albumin/Globulin Ratio 0.6 (0.8-1.8); Alk Phos 97 U/L (50-136); Anion Gap 3 mmol/L (6-16); Aspartate Aminotrans (AST/SGOT 22 U/L (12-37); Bilirubin, Total 0.5 mg/dL (0.1-1.0); Blood Urea Nitrogen 20 mg/dL (8-24); Bun/Creatinine Ratio 22.2 (12.0-20.0); CO2, Blood 26 mmol/L (21-32); Calcium, Blood 9.3 mg/dL (8.5-10.1); Chloride, Blood 105 mmol/L (98-108); Globulin, Blood 4.9 g/dL (2.2-4.0); Glomerular Filtration Rate >60 (60-); Glucose, Blood 299 mg/dL (70-99); Sodium, Blood 134 mmol/L (136-145); Total Protein, Blood 7.9 g/dL (6.4-8.2); Troponin I <0.015 ng/mL (0.000-0.040)
[2020-11-07] MEDS ORDERED: Prednisone20 MG PO (20:51)
[2020-11-07] MEDS ORDERED: ALBU90OI INH (20:51)
== END 2020-11-07 21:32 | disposition home or self-care (01) ==
LOC: ER 17:04
PROVIDERS: Emergency Medicine
DX: J18.9 Pneumonia, unspecified organism (principal); Z79.4 Long term (current) use of insulin; Z79.899 Other long term (current) drug therapy
CPT/HCPCS: 36415; 71045; 80053; 83880; 84145; 84484; 85025; 93005; 93010; 99285-25; A9270; J7512

== ENCOUNTER 2020-12-19 22:50 | Emergency (ER) | payer OTHER ==
[~2020-12-19] VITALS: Ht 167.6 cm; Wt 89.4 kg
[~2020-12-19 22:50] MED LIST changes: +ALBU90OI INH; +Prednisone20 MG PO
[2020-12-19 23:14] LABS: BASOPHILS ABSOLUTE AUTO 0.07 K/mm3 (0.00-0.23); BASOPHILS PERCENT AUTO 1 % (0-2); EOSINOPHILS ABSOLUTE AUTO 0.55 K/mm3 (0.00-0.68); EOSINOPHILS PERCENT AUTO 5 % (0-6); Hematocrit 44.2 % (37.0-53.0); Hemoglobin 14.5 g/dL (13.5-17.5); IMMATURE GRAN ABSOLUTE AUTO 0.05 K/mm3 (0.00-0.10); IMMATURE GRAN PERCENT AUTO 0 % (0-1); LYMPHOCYTES PERCENT AUTO 14 % (21-46); MONOCYTES ABSOLUTE AUTO 1.01 K/mm3 (0.16-1.47); MONOCYTES PERCENT AUTO 9 % (4-13); Mean Corpuscular HGB 29.4 pg (26.0-34.0); Mean Corpuscular HGB Conc 32.8 g/dL (31.5-36.5); Mean Corpuscular Volume 90 fL (80-100); Mean Platelet Volume 11.5 fL (9.1-12.4); NEUTROPHILS ABSOLUTE AUTO 8.39 K/mm3 (1.96-9.15); NEUTROPHILS PERCENT AUTO 71 % (41-73); Platelet Count 298 K/mm3 (150-400); RDW Coefficient Variation 14.6 % (11.7-14.2); RDW Standard Deviation 47.2 fL (35.1-46.3); Red Blood Cell Count 4.93 M/mm3 (4.30-5.90); White Blood Cell Count 11.77 K/mm3 (4.00-11.30)
[2020-12-19 23:29] LABS: Alanine Aminotransfer (ALT/SGP 14 U/L (12-78); Albumin, Blood 3.3 g/dL (3.4-5.0); Albumin/Globulin Ratio 0.7 (0.8-1.8); Alk Phos 86 U/L (50-136); Anion Gap 3 mmol/L (6-16); Aspartate Aminotrans (AST/SGOT 19 U/L (12-37); Bilirubin, Total 0.4 mg/dL (0.1-1.0); Blood Urea Nitrogen 14 mg/dL (8-24); Bun/Creatinine Ratio 16.2 (12.0-20.0); CO2, Blood 31 mmol/L (21-32); Calcium, Blood 9.3 mg/dL (8.5-10.1); Chloride, Blood 106 mmol/L (98-108); Creatinine, Blood 0.87 mg/dL (0.60-1.20); Globulin, Blood 4.7 g/dL (2.2-4.0); Glomerular Filtration Rate >60 (60-); Glucose, Blood 87 mg/dL (70-99); Potassium, Blood 4.2 mmol/L (3.5-5.5); Sodium, Blood 140 mmol/L (136-145)
[2020-12-19] MEDS ORDERED: PRAVASTATIN SOD20 MG PO (23:50)
[2020-12-19] MEDS ORDERED: DULOXETINE HCL60 M1 PO (23:51)
[2020-12-20 00:27] LABS: Troponin I 0.023 ng/mL (0.000-0.040)
[2020-12-20 00:38] LABS: Source, Urine Clean Catch
[2020-12-20 00:41] LABS: Magnesium, Blood 1.4 mg/dL (1.6-2.4)
[2020-12-20 00:49] LABS: Bilirubin, Urine Neg (Neg); Blood, Urine Neg (Neg); Glucose Qualitative, Urine Neg (Neg); Ketones, Urine Neg (Neg); Leukocyte Esterase, Urine 1+ (Neg); Nitrite, Urine Neg (Neg); Protein, Urine 1+ (Neg); Urobilinogen, Urine 1+ (Normal)
[2020-12-20 00:50] LABS: Appearance, Urine Clear (Clear); Color, Urine Yellow (P-Yellow)
[2020-12-20 01:01] LABS: Amorphous Light (0-Heavy); Bacteria Rare /hpf; Mucus Mod (0-Heavy); Red Blood Cells, Urine Not Seen /hpf (0-2); Squamous Epithelial Cells Rare /hpf (Few); White Blood Cells, Urine Rare /hpf (0-5)
== END 2020-12-20 05:12 | disposition home or self-care (01) ==
LOC: ER 22:50
PROVIDERS: Emergency Medicine
DX: E10.649 Type 1 diabetes mellitus with hypoglycemia without coma (principal); E10.42 Type 1 diabetes mellitus with diabetic polyneuropathy; I10 Essential (primary) hypertension; Z79.4 Long term (current) use of insulin; Z79.899 Other long term (current) drug therapy; Z86.16 Personal history of COVID-19; Z87.891 Personal history of nicotine dependence
CPT/HCPCS: 71045; 71260; 80053; 81001; 82947; 83735; 83880; 84484; 85025; 93005; 93010; 99285-25; Q9967

== ENCOUNTER 2021-06-19 13:50 | Inpatient (IN) | payer OTHER ==
[~2021-06-19] VITALS: Ht 167.6 cm; Wt 90.0 kg
[~2021-06-19 13:50] MED LIST changes: +DULOXETINE HCL60 M1 PO; +PRAVASTATIN SOD20 MG PO; -XARELTO15 MG PO; +XARELTO20 MG PO
[2021-06-19 15:43] LABS: BASOPHILS ABSOLUTE AUTO 0.05 K/mm3 (0.00-0.23); BASOPHILS PERCENT AUTO 0 % (0-2); EOSINOPHILS ABSOLUTE AUTO 0.11 K/mm3 (0.00-0.68); EOSINOPHILS PERCENT AUTO 1 % (0-6); Hematocrit 47.4 % (37.0-53.0); Hemoglobin 15.6 g/dL (13.5-17.5); IMMATURE GRAN ABSOLUTE AUTO 0.08 K/mm3 (0.00-0.10); IMMATURE GRAN PERCENT AUTO 1 % (0-1); LYMPHOCYTES ABSOLUTE AUTO 1.07 K/mm3 (0.84-5.20); LYMPHOCYTES PERCENT AUTO 6 % (21-46); MONOCYTES ABSOLUTE AUTO 1.55 K/mm3 (0.16-1.47); MONOCYTES PERCENT AUTO 9 % (4-13); Mean Corpuscular HGB 29.1 pg (26.0-34.0); Mean Corpuscular HGB Conc 32.9 g/dL (31.5-36.5); Mean Corpuscular Volume 88 fL (80-100); Mean Platelet Volume 11.7 fL (9.1-12.4); NEUTROPHILS ABSOLUTE AUTO 14.85 K/mm3 (1.96-9.15); NEUTROPHILS PERCENT AUTO 84 % (41-73); Platelet Count 202 K/mm3 (150-400); RDW Coefficient Variation 14.5 % (11.7-14.2); RDW Standard Deviation 47.1 fL (35.1-46.3); Red Blood Cell Count 5.37 M/mm3 (4.30-5.90); White Blood Cell Count 17.71 K/mm3 (4.00-11.30)
[2021-06-19 15:56] LABS: Source, Urine Voided
[2021-06-19 16:06] LABS: Appearance, Urine Hazy (Clear); Bilirubin, Urine Neg (Neg); Blood, Urine 2+ (Neg); Color, Urine Amber (P-Yellow); Glucose Qualitative, Urine Neg (Neg); Ketones, Urine Neg (Neg); Leukocyte Esterase, Urine 1+ (Neg); Nitrite, Urine Neg (Neg); Protein, Urine 1+ (Neg); Urobilinogen, Urine NORM (Normal)
[2021-06-19 16:10] LABS: Alanine Aminotransfer (ALT/SGP 18 U/L (12-78); Albumin, Blood 3.2 g/dL (3.4-5.0); Albumin/Globulin Ratio 0.6 (0.8-1.8); Alk Phos 80 U/L (50-136); Anion Gap 6 mmol/L (6-16); Aspartate Aminotrans (AST/SGOT 14 U/L (12-37); Bilirubin, Total 0.6 mg/dL (0.1-1.0); Blood Urea Nitrogen 22 mg/dL (8-24); Bun/Creatinine Ratio 22.3 (12.0-20.0); CO2, Blood 27 mmol/L (21-32); Calcium, Blood 9.7 mg/dL (8.5-10.1); Chloride, Blood 101 mmol/L (98-108); Creatinine, Blood 0.99 mg/dL (0.60-1.20); Globulin, Blood 5.2 g/dL (2.2-4.0); Glomerular Filtration Rate >60 (60-); Glucose, Blood 208 mg/dL (70-99); Potassium, Blood 4.7 mmol/L (3.5-5.5); Sodium, Blood 134 mmol/L (136-145); Total Protein, Blood 8.4 g/dL (6.4-8.2)
[2021-06-19 16:18] LABS: Amorphous Light (0-Heavy); Bacteria Few /hpf; Squamous Epithelial Cells Few /hpf (Few)
[2021-06-19 16:25] LABS: Spermatozoa Few /hpf
[2021-06-19 16:40] LABS: Influenza A, PCR NEGATIVE (NEGATIVE); Influenza B, PCR NEGATIVE (NEGATIVE); Resp Syncytial Virus, PCR NEGATIVE (NEGATIVE); SARS-Cov-2 (COVID-19) PCR, MMC NEGATIVE (NEGATIVE)
[2021-06-19] MEDS ORDERED: POTCHL20ER PO (17:03)
[2021-06-19] MEDS ORDERED: BETA.05TCA TOP (17:05)
[2021-06-19] MEDS ORDERED: TRAM50 PO (17:06)
[2021-06-19] MEDS ORDERED: LISI20 PO (17:06)
--- NOTE | 2021-06-19 21:45 | NUR ---
ADMISSION: PATIENT IS RECIEVED FROM ER VIA STRETCHER. HEAVY ASSIST OF 2 WITH FWW AND GAITBELT. TEMP. WAS 102.3. DR DUARTE WAS NOTIFIED AND ORDERS FOR BLOOD CULTURES WAS OBTAINED. TYLENOL IS GIVEN FOR TEMP. PATIENT ALSO REPORTS LEFT SHOULDER PAIN, CHRONIC PATIENT IS AWAITING SUGERY. PRN PERCOCET WAS GIVEN.
[2021-06-20 05:20] LABS: BASOPHILS ABSOLUTE AUTO 0.04 K/mm3 (0.00-0.23); BASOPHILS PERCENT AUTO 0 % (0-2); EOSINOPHILS ABSOLUTE AUTO 0.13 K/mm3 (0.00-0.68); EOSINOPHILS PERCENT AUTO 1 % (0-6); Hematocrit 41.3 % (37.0-53.0); Hemoglobin 13.5 g/dL (13.5-17.5); IMMATURE GRAN ABSOLUTE AUTO 0.03 K/mm3 (0.00-0.10); IMMATURE GRAN PERCENT AUTO 0 % (0-1); LYMPHOCYTES PERCENT AUTO 9 % (21-46); MONOCYTES ABSOLUTE AUTO 1.06 K/mm3 (0.16-1.47); MONOCYTES PERCENT AUTO 9 % (4-13); Mean Corpuscular HGB 28.8 pg (26.0-34.0); Mean Corpuscular HGB Conc 32.7 g/dL (31.5-36.5); Mean Corpuscular Volume 88 fL (80-100); Mean Platelet Volume 12.2 fL (9.1-12.4); NEUTROPHILS ABSOLUTE AUTO 9.43 K/mm3 (1.96-9.15); NEUTROPHILS PERCENT AUTO 81 % (41-73); Platelet Count 156 K/mm3 (150-400); RDW Coefficient Variation 14.6 % (11.7-14.2); RDW Standard Deviation 46.8 fL (35.1-46.3); Red Blood Cell Count 4.68 M/mm3 (4.30-5.90); White Blood Cell Count 11.69 K/mm3 (4.00-11.30)
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
[2021-06-20 06:31] LABS: Anion Gap 9 mmol/L (6-16); Blood Urea Nitrogen 21 mg/dL (8-24); Bun/Creatinine Ratio 23.9 (12.0-20.0); CO2, Blood 24 mmol/L (21-32); Calcium, Blood 8.5 mg/dL (8.5-10.1); Chloride, Blood 102 mmol/L (98-108); Creatinine, Blood 0.88 mg/dL (0.60-1.20); Glomerular Filtration Rate >60 (60-); Glucose, Blood 235 mg/dL (70-99); Potassium, Blood 4.5 mmol/L (3.5-5.5); Sodium, Blood 135 mmol/L (136-145)
--- NOTE | 2021-06-20 16:04 | NUR ---
SHIFT SUMMARY PATIENT IS ALERT AND ORIENTED X3-4. PATIENT HAS WORKED WITH PT AND OT WITH MODERATE SUCCESS. PATIENT HAS BEEN HAVING 200 PLUS CBG. PATIENT HAS HAD NO COMPLAINTS OF SOB, NAUSEA, VOMITTING. PATIENT HAS COMPLAINED OF SHOULDER PAIN FROM RIGHT SHOULDER. PATIENT HAS BEEN ON 4L NC ALL SHIFT SATTING LOW TO MID 90S. NO ACUTE ISSUES THIS SHIFT. VITAL SIGNS REVIEWED. BED IN LOWEST AND LOCKED POSITION. WILL MONITOR UNTIL SHIFT CHANGE.
--- NOTE | 2021-06-21 03:52 | NUR ---
SHIFT SUMMARY PT A&O X 3. PT IS PLEASANT AND COOPERATIVE WITH CARE. PT INCONTINENT, WEARS ATTENDS. PT COMPLAINS OF R SHOULDER PAIN. MEDICATED PER EMAR. PT HAD FEVER OF 100.6 ORALLY , BP OF 88/55, AND CBG OF [address] DUARTE ORDERED A FLUID BOLUS. AFTER BOLUS PT BP WENT UP TO 100. PT WAS DIAPHORETIC BUT WAS OTHERWISE ASYMPTOMATIC. BLANKETS TAKEN OFF OF PT AND FEVER WENT DOWN TO 97.5 ORAL WITHIN A COUPLE OF HOURS. PT GIVEN INSULIN AND A SNACK. HAS BEEN SLEEPING OFF AND ON THROUGHOUT THE NIGHT. CALL LIGHT WITHIN REACH. WILL CONTINUE TO MONITOR.
--- NOTE | 2021-06-21 06:37 | NUR ---
PT TRANSFERRED TO ICU PER DR MCGILL ABOUT 0387
--- NOTE | 2021-06-21 07:14 | NUR ---
PT ARRIVED TO ICU RM 6 AT 0550, RECEIVED REPORT FROM CONSTANCE BLANCO. PT TRANSFERRED FOR CONCERNS OF HYPOTENSION, DESPITE RECEIVING 1L BOLUS, LEVOPHED ORDERED BUT NOT STARTED. POSSIBLE PNEUMONIA VS. PULMONARY EDEMA, WITH CONCERNS OF SEPTIC SHOCK. HE IS A/O X4, COOPERATIVE AND ABLE TO FOLLOW COMMANDS. HE IS AFEBRILE. 4L O2 NC, SPO2 >92%, LUNGS ARE COARSE WITH EXP WHEEZE, HE REPORTS SOB WITH EXERTION. HR IS 60'S, SBP 100-90'S, MAP 65 OR GREATER. NS ORDERED BY DR. MCGILL, 500ML AT 75/HR AND MONITOR FOR S/S OF FLUID OVERLOAD. ABDOMEN IS MODERATELY DISTENDED AND UMBILICAL HERNIAL PRESENT, TENDER TO PALPATION. HE REPORTS URINARY INCONTINENCE X3 DAYS AND IS WEARING ATTENDS. SKIN IS OVERALL C/D/I, BILATERAL LE WITH 2+ EDEMA AND BROWN DISCOLORATION TO BELOW KNEES. PT REPORTS HX OF VENOUS STASIS ULCERS. 22G IV STARLA, 18G PLACED IN RIGHT FA. ORDERS REVIEWED AND WILL REPORT TO ONCOMING SHIFT.
--- NOTE | 2021-06-21 08:38 | NUR ---
RESIDENT DR CHANEY IN ROUNDING ON PATIENT, PATIENT ALERT AND ORIENTED X 4, HOB ELEVATED EATING BREAKFAST, HEATING PAD TO LEFT SHOULDER, MEDICATED FOR PAIN, LEVOPHED NOT STARTED, LUNG CONGESTION CLEARED WITH A COUGH, CALL LIGHT WITH IN REACH, WCTM
--- NOTE | 2021-06-21 09:45 | NUR ---
DR YANCEY ROUNDED, PATIENT RESTING IN ROOM, NO COMPLAINTS OR CONCERNS, NO SIGNS OF DISTRESS, ATE BREAKFAST, CALL LIGHT WITH IN REACH
--- NOTE | 2021-06-21 20:00 | NUR ---
ASSUMED CARE RECEIVED REPORT FROM GLADYS NOLASCO AT 1900. PT CURRENTLY AWAKE IN BED, A/O x4, ABLE TO FOLLOW COMMANDS, BUT GENERALIZED WEAKNESS NOTED. WEARING 4L NC, WHICH HE REPORTS BASELINE HE WEARS 4-5L AT HOME. LUNGS HAVE EXPIRATORY WHEEZE AND CRACKLES IN RIGHT BASE. SPO2 IS >92 WITH REST, DESATS INTO UPPER 80'S WITH TALKING AND MOVEMENT, BUT RECOVERS WELL. DENIES SOB AT THIS TIME. HE IS FEBRILE AT 99.6, BUT ALSO USEING HEATING PAD ON LEFT SHOULDER FOR TORN ROTATOR CUFF. REPORTING PAIN AT 8/10 CURRENTLY, OXYCODONE AVAILABLE. HR SHOWS SR WITH 1ST DEGREE AV BLOCK AND BBB, RATE IN 60-80'S, DEPENDING ON ACTIVITY. BP IS STABLE WITH SBP IN 110'S, MAP >65. NS AT 75ML/HR TO CONTINUE, LEVOPHED AVAILABLE BUT HAS NOT BEEN NEEDED SINCE TRANSFER TO ICU. UMBILICAL HERNIA WITH TENDERNESS TO PALPATION. NO BOWEL MOVEMENT SINCE HOSPITALIZATION BUT ACITVE BOWEL TONES AND PASSING FLATUS. HE CONTINUES WITH URINARY INCONTINENCE, WEARING ATTENDS, DENIES DYSURIA OR URGENCY. BLE WITH 2+ PITTING EDEMA, BROWN DISCOLORATION TO BELOW THE KNEES, SMALL HEALING SCABS NOTED T/O BLE. ORDERS REVIEWED AND WILL TREAT PRESCRIBED.
[2021-06-22 03:15] LABS: BASOPHILS ABSOLUTE AUTO 0.04 K/mm3 (0.00-0.23); BASOPHILS PERCENT AUTO 0 % (0-2); EOSINOPHILS ABSOLUTE AUTO 0.36 K/mm3 (0.00-0.68); EOSINOPHILS PERCENT AUTO 4 % (0-6); Hematocrit 37.4 % (37.0-53.0); IMMATURE GRAN ABSOLUTE AUTO 0.03 K/mm3 (0.00-0.10); IMMATURE GRAN PERCENT AUTO 0 % (0-1); LYMPHOCYTES ABSOLUTE AUTO 1.45 K/mm3 (0.84-5.20); LYMPHOCYTES PERCENT AUTO 16 % (21-46); MONOCYTES ABSOLUTE AUTO 1.22 K/mm3 (0.16-1.47); MONOCYTES PERCENT AUTO 13 % (4-13); Mean Corpuscular HGB 28.5 pg (26.0-34.0); Mean Corpuscular HGB Conc 32.1 g/dL (31.5-36.5); Mean Corpuscular Volume 89 fL (80-100); Mean Platelet Volume 11.6 fL (9.1-12.4); NEUTROPHILS ABSOLUTE AUTO 6.28 K/mm3 (1.96-9.15); NEUTROPHILS PERCENT AUTO 67 % (41-73); Platelet Count 165 K/mm3 (150-400); RDW Standard Deviation 45.8 fL (35.1-46.3); Red Blood Cell Count 4.21 M/mm3 (4.30-5.90); White Blood Cell Count 9.38 K/mm3 (4.00-11.30)
[2021-06-22 04:00] LABS: Anion Gap 6 mmol/L (6-16); Blood Urea Nitrogen 13 mg/dL (8-24); Bun/Creatinine Ratio 18.9 (12.0-20.0); CO2, Blood 28 mmol/L (21-32); Calcium, Blood 7.7 mg/dL (8.5-10.1); Chloride, Blood 104 mmol/L (98-108); Creatinine, Blood 0.69 mg/dL (0.60-1.20); Glomerular Filtration Rate >60 (60-); Glucose, Blood 120 mg/dL (70-99); Magnesium, Blood 1.5 mg/dL (1.6-2.4); Phosphorus, Blood 2.4 mg/dL (2.5-4.9); Potassium, Blood 4.1 mmol/L (3.5-5.5); Sodium, Blood 138 mmol/L (136-145)
--- NOTE | 2021-06-22 06:00 | NUR ---
PT A/O X4 T/O SHIFT, HAD TMAX OF 99.6, HOWEVER WAS LIKELY ELEVATED D/T HEATING PAD. AFEBRILE AFTER REPOSITIONING HEATING PAD. HE REPORTED PAIN IN L SHOULDER AND WAS MEDICATED WITH PRN OXYCODONE X2 THIS SHIFT. HE IS ABLE TO REPOSITION HIMSELF FOR COMFORT INDEPENDENTLY AND USES CALL LIGHT APPROPRIATELY. VSS T/O SHIFT, SPO2 >92% WITH 4L NC. LUNGS NOW SOUND CLEAR, BUT HE CONTINUES WITH EXPIRATORY WHEEZE T/O. CHANGED ATTENDS FREQUENTLY FOR URINARY INCONTINENCE, SKIN IS C/D/I IN BEBE AREA AND SACRUM/COCCYX. WILL REPORT TO ONCOMING SHIFT.
--- NOTE | 2021-06-22 08:30 | NUR ---
DR. YANCEY IN ROOM TO SEE PATIENT. UPDATED ON PATIENT STATUS. INFORMED THAT PHOS 2.4 AND MAG 1.5 THIS AM. INFORMED THAT PATIENT RECEIVING 2 G MAG SULFATE AT THIS TIME. NO ORDERS RECEIVED.
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
--- NOTE | 2021-06-22 12:40 | NUR ---
PATIENT AFEBRILE. HR REMAINS 50S TO 60S. SBP IN THE 1-TEENS. PATIENT SATTING 90% AND GREATER ON 3 L NC. BLOOD SUGAR OF 129; NO COVERAGE INDICATED. NO COMPLAINTS OF PAIN AT THIS TIME. WILL CONTINUE TO MONITOR.
--- NOTE | 2021-06-22 16:00 | NUR ---
PATIENT AFEBRILE. NO COMPLAINTS. HR IN THE 60S. SBP IN THE 120S. PATIENT SATTING 90% AND GREATER ON 2 L NC. PATIENT RECEIVED BED BATH.
--- NOTE | 2021-06-22 19:16 | NUR ---
SHIFT SUMMARY PATIENT REMAINED ALERT AND ORIENTED X 4, AFEBRILE. PATIENT RECEIVED PRN OXY TWO TIMES FOR COMPLAINT OF L SHOULDER PAIN. PATIENT ABLE TO HELP WITH REPOSITIONING BUT IS WEAK. PATIENT DECREASED FROM 5 TO 2 L NC THIS SHIFT. HR RANGED 50S TO 60S AND SBP 1-TEENS TO 130S. PATIENT REMAINED WITH AV BLOCK AND BBB. NO BM THIS SHIFT. PATIENT HAD GOOD APPETITE AT ALL MEALS. PATIENT REMAINED INCONTINENT OF URINE. NO CHANGE TO SKIN. PATIENT REPOSITIONED NEEDED THROUGHOUT SHIFT. NS DECREASED FROM 75 MLS/ HOUR TO TKO. BLOOD SUGARS RANGED FROM 70 TO 169 THIS SHIFT. PATIENT RECEIVED 2 G MAG FOR MAG OF 1.5 THIS AM. PATIENT RECEIVED FLU SHOT. PATIENT HAD COMPLETE BED BATH. PATIENT HAS NO COMPLAINTS AT THIS TIME. BED LOW, CALL LIGHT IN REACH. REPORT HAS BEEN GIVEN TO ASSUMING PUNCH BOX TENDER NURSE.
--- NOTE | 2021-06-22 20:00 | NUR ---
ASSUMED CARE OF PT AT 1900 AFTER RECEIVING REPORT FROM DAY SHIFT NURSE. PT A/0 X4, SITTING UP IN BED WATCHING TV AND USING HEATING PAD ON L SHOULDER FOR PAIN FROM RECENT REINJURY OF ROTATOR CUFF AFTER SUSTAINING A FALL. HE IS REQUESTING OXYCODONE, BUT IT IS NOT DUE UNTIL 2113. HE IS CURRENTLY AFEBRILE. WEARING 3L O2 NC, SPO2 >92%, CRACKLES IN BASES. SOME DYSPNEA WITH EXERTION, BUT APPEARS IMPROVED FROM LAST NIGHT. HR IS SR IN 60-70'S WITH 1ST DEGREE AV BLOCK AND BBB. SBP STABLE IN 130'S. EDEMA TO BLE IS IMPROVED FROM LAST NIGHT AT 1+ MINIMAL. DISCOLORATION TO BLE CONTINUES SAME R/T PVD. NS RUNNING AT TKO, ORAL INTAKE IS GOOD. NO BOWEL MOVEMENT TODAY, BOWEL TONES VERY ACTIVE X4. UMBILICAL HERNIA PRESENT. HE STATES HE IS AWARE WHEN HE NEEDS TO URINATE AND WOULD LIKE TO TRIAL USING A URINAL. HE CONTINUES TO WEAR ATTENDS AND WERE CHANGED AT BEGINNING OF SHIFT. URINE IS YELLOW. HE IS ABLE TO HELP WITH ATTENDS CHANGES AND REPOSITIONING. ORDERS REVIEWED AND WILL TREAT PRESCRIBED.
--- NOTE | 2021-06-22 23:48 | NUR ---
RECEIVED PATIENT TO UNIT ABOUT 2320. ALERT AND ORIENTED X'S 4. DENIES SOB OR CHEST PAIN. O2@3l VIA N/C, RESPIRATIONS EVEN AND UNLABORED. BILATERAL LUNG SOUNDS DIMIISHED/ CRACKLES IN THE BASES. TELE: REPORTED S/R. NON PITTING TO BLE'S, PEDAL PULSE PRESENT. ORIENTED PATIENT TO ROOM AND CALL AHUMADA, VERBALIZED UNDERSTANDING, SAFETY MAINTAINED.
--- NOTE | 2021-06-22 23:48 | NUR ---
REPORT GIVEN TO SURGICAL FLOOR, RM 215 NURSE, SWATI, AT 2300. NO CHANGES IN PT CONDITION. PT TRANSFERRED TO THE ROOM AT 2315.
--- NOTE | 2021-06-22 23:53 | NUR ---
HAND CARRIED AND DELIVERED THE PT'S SLIP NEEDED TO RETRIEVE ITEMS FROM THE [facility]. DELIVERED TO THE PT'S NURSEVINNIE.
[2021-06-23 04:32] LABS: BASOPHILS ABSOLUTE AUTO 0.04 K/mm3 (0.00-0.23); BASOPHILS PERCENT AUTO 1 % (0-2); EOSINOPHILS ABSOLUTE AUTO 0.41 K/mm3 (0.00-0.68); EOSINOPHILS PERCENT AUTO 5 % (0-6); Hematocrit 39.1 % (37.0-53.0); Hemoglobin 12.7 g/dL (13.5-17.5); IMMATURE GRAN ABSOLUTE AUTO 0.03 K/mm3 (0.00-0.10); IMMATURE GRAN PERCENT AUTO 0 % (0-1); LYMPHOCYTES ABSOLUTE AUTO 1.26 K/mm3 (0.84-5.20); LYMPHOCYTES PERCENT AUTO 16 % (21-46); MONOCYTES ABSOLUTE AUTO 0.98 K/mm3 (0.16-1.47); MONOCYTES PERCENT AUTO 13 % (4-13); Mean Corpuscular HGB 28.6 pg (26.0-34.0); Mean Corpuscular HGB Conc 32.5 g/dL (31.5-36.5); Mean Corpuscular Volume 88 fL (80-100); Mean Platelet Volume 11.7 fL (9.1-12.4); NEUTROPHILS ABSOLUTE AUTO 5.04 K/mm3 (1.96-9.15); NEUTROPHILS PERCENT AUTO 65 % (41-73); Platelet Count 198 K/mm3 (150-400); RDW Coefficient Variation 13.7 % (11.7-14.2); RDW Standard Deviation 44.1 fL (35.1-46.3); Red Blood Cell Count 4.44 M/mm3 (4.30-5.90); White Blood Cell Count 7.76 K/mm3 (4.00-11.30)
[2021-06-23 04:50] LABS: Alanine Aminotransfer (ALT/SGP 19 U/L (12-78); Albumin, Blood 2.1 g/dL (3.4-5.0); Albumin/Globulin Ratio 0.5 (0.8-1.8); Alk Phos 111 U/L (50-136); Anion Gap 3 mmol/L (6-16); Aspartate Aminotrans (AST/SGOT 21 U/L (12-37); Bilirubin, Total 0.2 mg/dL (0.1-1.0); Blood Urea Nitrogen 12 mg/dL (8-24); Bun/Creatinine Ratio 18.3 (12.0-20.0); CO2, Blood 33 mmol/L (21-32); Calcium, Blood 8.5 mg/dL (8.5-10.1); Chloride, Blood 101 mmol/L (98-108); Creatinine, Blood 0.66 mg/dL (0.60-1.20); Globulin, Blood 4.3 g/dL (2.2-4.0); Glomerular Filtration Rate >60 (60-); Glucose, Blood 112 mg/dL (70-99); Potassium, Blood 4.1 mmol/L (3.5-5.5); Sodium, Blood 137 mmol/L (136-145); Total Protein, Blood 6.4 g/dL (6.4-8.2)
--- NOTE | 2021-06-23 05:54 | NUR ---
ALERT AND ORIENTED. MEDICATED FOR PAIN MANAGEMENT DUE TO C/O LEFT SHOULDER PAIN, EFFETIVE RELIEF, ELEVATED ON PILLOW FOR COMFORT. DENIES SOB OR CHEST PAIN, VS WNL. CONTINUOUS PULSE OX IN PLACE, RESPIRATIONS EVEN AND UNLABORED. TELE: NSR PER TELE. RESTING PEACEFULLY IN BED, SAFETY AINTAINED.
--- NOTE | 2021-06-23 19:28 | NUR ---
SHIFT SUMMARY PT A&OX4, VSS/BIOX ON/3L NC, CBGS COV PER EMAR. VOIDING/URINAL; BM TODAY. PAIN TREATED WITH 10 MG PERC, ABX AND BOWEL CARE PER EMAR. AMB STAND/TRANSFER WITH FWW/GB TO BED/CHAIR/BSC. PENNIE PO. REPORT PROVIDED TO VINNIE NOLASCO.
--- NOTE | 2021-06-24 05:00 | NUR ---
SLEPT WELL THROUGH NIGHT. MEDICATED FOR PAIN MANAGEMENT DUE TO C/O LEFT SHOULDER PAIN, EFFECTIVE RELIEF. CONTINUOUS PULSE OX IN PLACE, TELE: SR PER TECHNICAL STAFF ASSISTANT. SAFETY MAINTAINED, CALL AHUMADA IN REACH.
--- NOTE | 2021-06-24 16:19 | NUR ---
SHIFT SUMMARY PT A&OX4, VSS/2LNC/BIOX ON/CBGS CNI/TELE NSR @ 68 BPM, PENNIE PO, AMB SBA/FWW/GB TO BRP/BED, UP TO CHAIR T/O SHIFT, BLE ELEVATED, VOIDING/URINAL, SHOWER TODAY, PAIN MANAGED WITH 10 MG PERC Q4P. WILL REPORT TO ONCOMING RN.
--- NOTE | 2021-06-25 05:50 | NUR ---
SLEPT WELL THROUGH NIGHT. DENIES PAIN OR SOB. CONTINUOUS PULSE OX IN PLACE. TELE S/R PER CLEANER HOUSEKEEPING. 1 ASSIST FOR TRANSFERS WITH WALKER. SAFETY MAINTAINED, CALL AHUMADA IN REACH.
--- NOTE | 2021-06-25 18:08 | NUR ---
SHIFT SUMMARY: LEFT SHOULDER FX PATIENT IS ALERT AND ORIENTED X4. VS ARE WNL AND IS ON 4L NC (WHICH IS BASELINE FOR HIM SINCE AFTER COVID). PAIN IS MANAGED WITH 1 PERCOCET PO. PATIENT WAS ABLE TO WORK WITH PT/OT WITH GAIT BELT AND FWW. HE TOLERATES PO INTAKE AND IS VOIDING. CALLS APPROPIRATELY. CALL LIGHT WITHIN REACH. THE PLAN IS TO WORK WITH PT/OT TOMORROW AGAIN.
--- NOTE | 2021-06-26 05:54 | NUR ---
2129 MEDICATED WITH PAIN MEDICATION X'S 1, EFFECTIVE RELIEF. SLEPT WELL THROUGH NIGHT. RESPIRATIONS EVEN AND UNLABORED. DENIES CHEST PAIN AND SOB. TELE S/R. CONT PULSE OX IN PLACE. SAFET MAINTAINED, CALL AHUMADA IN REACH.
--- NOTE | 2021-06-26 17:47 | NUR ---
SHIFT SUMMARY PT REMAINS IN THE HOSPITAL WAITING WAITING FOR PLACEMENT. PT WORKED WITH THERAPY TODAY AND IS A 1 ASSIST BUT UNSTEADY ON HIS FEET. PT COMPLAINS OF L SHOULDER PAIN FROM ROTATOR CUFF TEAR. WILL MONITOR UNTIL REPORT TO LOLI NOLASCO.
--- NOTE | 2021-06-27 05:01 | NUR ---
CRYSTAL GROWING TECHNICIAN SUMMARY NO ACUTE CHANGES THIS SHIFT. PT AAOX4 AND PLEASANT. 1 ASSIST W/ FWW AND GB WHEN AMBULATING, PT IS VERY SLOW MOVING AND CAN BE UNSTEADY AT TIMES. MEDICATED FOR ACUTE ON CHRONIC LEFT SHOULDER PAIN WITH OXYCODONE Q4H. PT HAS SLEPT OFF/ON THROUGH THE NIGHT. VSS, WILL CONTINUE TO MONITOR.
[2021-06-27 15:53] LABS: Influenza A, PCR NEGATIVE (NEGATIVE); Influenza B, PCR NEGATIVE (NEGATIVE); Resp Syncytial Virus, PCR NEGATIVE (NEGATIVE); SARS-Cov-2 (COVID-19) PCR, MMC NEGATIVE (NEGATIVE)
--- NOTE | 2021-06-27 16:48 | NUR ---
REPORT CALLED TO EL AT [facility]. AWATING ARRIVAL OF TRANSPORT.
--- NOTE | 2021-06-27 19:23 | NUR ---
RECEIVED REPORT AND ASSUMED CARE OF PT. TRANSPORT ARRIVED TO TRANSFER PT TO SNF WHILE DAY SHIFT NURSE STILL ON SHIFT. DAY SHIFT RN ASSISTING WITH TRANSFER. PT D/C'D @ 1926.
--- NOTE | 2021-06-27 19:47 | NUR ---
SHIFT SUMMARY PT DISCHARGED AT 1900 TO [facility]. PT SENT IN HIS WHEELCHAIR WITH OXYGEN. O2 SATURATION 93% ON 3L O2 VIA NC AT TIME OF DISCHARGE. GILDA AND EL AT NOTIFIED THAT PT WAS LEAVING LATER THAN THE EXPECTED DISCHARGE TIME OF 1730. DISCHARGE PACKET AND SCRIPTS SENT WITH PT TO [facility].
== END 2021-06-27 19:27 | DRG 871 ==
LOC: ER 13:50 → MEDS 13:51 → SURS 21:22 → ICUE 06-21 05:58 → SURS 06-22 23:15
PROVIDERS: Emergency Medicine; Family Medicine; Student in an Organized Health Care Education/Training Program; ADMIT Internal Medicine
DX: A41.51 Sepsis due to Escherichia coli [E. coli] (principal); J18.9 Pneumonia, unspecified organism; J96.21 Acute and chronic respiratory failure with hypoxia; J44.0 Chronic obstructive pulmonary disease with (acute) lower respiratory infection; E27.1 Primary adrenocortical insufficiency; Z68.41 Body mass index [BMI] 40.0-44.9, adult; Z20.822 Contact with and (suspected) exposure to COVID-19; E10.42 Type 1 diabetes mellitus with diabetic polyneuropathy; I10 Essential (primary) hypertension; M17.0 Bilateral primary osteoarthritis of knee; R65.20 Severe sepsis without septic shock; E78.5 Hyperlipidemia, unspecified; E03.9 Hypothyroidism, unspecified; Z23 Encounter for immunization; E66.9 Obesity, unspecified; R31.9 Hematuria, unspecified; K59.00 Constipation, unspecified; S40.012A Contusion of left shoulder, initial encounter; S00.93XA Contusion of unspecified part of head, initial encounter; E83.42 Hypomagnesemia; S46.012A Strain of muscle(s) and tendon(s) of the rotator cuff of left shoulder, initial encounter; Z99.81 Dependence on supplemental oxygen; Z98.890 Other specified postprocedural states; Z98.1 Arthrodesis status; Z86.16 Personal history of COVID-19; Z98.42 Cataract extraction status, left eye; Z98.41 Cataract extraction status, right eye; Z79.899 Other long term (current) drug therapy; Z79.4 Long term (current) use of insulin; Z86.711 Personal history of pulmonary embolism; Z79.01 Long term (current) use of anticoagulants; W18.30XA Fall on same level, unspecified, initial encounter
CPT/HCPCS: 0241U; 36415; 51701; 70450; 71045; 72125; 73030; 80048; 80053; 80069; 81001; 82947; 83605; 83735; 83880; 84145; 84484; 85025; 87040; 87077; 87086; 87186; 90686; 93005; 93010; 94760; 94762; 96365; 96375; 97110; 97116; 97162; 97166; 97530; 97535; 99285-25; A9270; G0378; J0456; J0696; J1815; J2405; J3010; J3475; J7030; J7050

== ENCOUNTER 2022-01-28 08:40 | Observation (INO) | payer OTHER | END 2022-01-29 19:22 | disposition home or self-care (01) | LOC: ER 08:40 → MEDS 08:41 | PROVIDERS: ADMIT Family Medicine | DX: G92.8 Other toxic encephalopathy (principal); R10.9 Unspecified abdominal pain; R60.0 Localized edema; E11.10 Type 2 diabetes mellitus with ketoacidosis without coma; K42.9 Umbilical hernia without obstruction or gangrene; J96.11 Chronic respiratory failure with hypoxia; U09.9 Post COVID-19 condition, unspecified; I10 Essential (primary) hypertension; E11.42 Type 2 diabetes mellitus with diabetic polyneuropathy; E03.9 Hypothyroidism, unspecified; E78.5 Hyperlipidemia, unspecified; Z86.711 Personal history of pulmonary embolism; Z79.4 Long term (current) use of insulin; Z79.890 Hormone replacement therapy; Z79.899 Other long term (current) drug therapy; Z79.84 Long term (current) use of oral hypoglycemic drugs; Z79.01 Long term (current) use of anticoagulants; Z99.81 Dependence on supplemental oxygen; W18.30XA Fall on same level, unspecified, initial encounter; Y92.89 Other specified places as the place of occurrence of the external cause ==

== ENCOUNTER 2022-10-08 22:30 | Emergency (ER) | payer OTHER ==
[~2022-10-08] VITALS: Ht 167.6 cm; Wt 84.8 kg
[~2022-10-08 22:30] MED LIST changes: +BASAGLAR K100 UNIT/3 SC; +BETA.05TCA TOP; +POTCHL20ER PO; +TRAM50 PO
[2022-10-08 23:25] LABS: BASOPHILS ABSOLUTE AUTO 0.07 K/mm3 (0.00-0.23); BASOPHILS PERCENT AUTO 1 % (0-2); EOSINOPHILS PERCENT AUTO 3 % (0-6); Hematocrit 41.2 % (37.0-53.0); Hemoglobin 14.1 g/dL (13.5-17.5); IMMATURE GRAN ABSOLUTE AUTO 0.04 K/mm3 (0.00-0.10); IMMATURE GRAN PERCENT AUTO 1 % (0-1); LYMPHOCYTES ABSOLUTE AUTO 1.97 K/mm3 (0.84-5.20); LYMPHOCYTES PERCENT AUTO 22 % (21-46); MONOCYTES ABSOLUTE AUTO 0.64 K/mm3 (0.16-1.47); MONOCYTES PERCENT AUTO 7 % (4-13); Mean Corpuscular HGB 30.3 pg (26.0-34.0); Mean Corpuscular HGB Conc 34.2 g/dL (31.5-36.5); Mean Corpuscular Volume 89 fL (80-100); Mean Platelet Volume 12.2 fL (9.1-12.4); NEUTROPHILS ABSOLUTE AUTO 5.83 K/mm3 (1.96-9.15); NEUTROPHILS PERCENT AUTO 66 % (41-73); Platelet Count 187 K/mm3 (150-400); RDW Coefficient Variation 13.5 % (11.7-14.2); RDW Standard Deviation 43.8 fL (35.1-46.3); Red Blood Cell Count 4.65 M/mm3 (4.30-5.90); White Blood Cell Count 8.85 K/mm3 (4.00-11.30)
[2022-10-08 23:42] LABS: Albumin, Blood 3.3 g/dL (3.4-5.0); Bilirubin, Total 0.3 mg/dL (0.1-1.0); Bun/Creatinine Ratio 20.8 (12.0-20.0); Calcium, Blood 8.6 mg/dL (8.5-10.1); Creatinine, Blood 1.49 mg/dL (0.60-1.20); Globulin, Blood 3.3 g/dL (2.2-4.0); Potassium, Blood 4.5 mmol/L (3.5-5.5); Total Protein, Blood 6.6 g/dL (6.4-8.2)
[2022-10-09 02:11] LABS: Source, Urine Straight Cath
[2022-10-09 02:14] LABS: Bilirubin, Urine Neg (Neg); Blood, Urine Neg (Neg); Glucose Qualitative, Urine 1+ (Neg); Ketones, Urine Neg (Neg); Leukocyte Esterase, Urine Neg (Neg); Nitrite, Urine Neg (Neg); Protein, Urine Neg (Neg); Urobilinogen, Urine NORM (Normal)
[2022-10-09 02:25] LABS: Appearance, Urine Clear (Clear); Color, Urine Pale Yellow (P-Yellow)
[2022-10-09 02:51] VITALS: BP 101/74
== END 2022-10-09 02:51 | disposition home or self-care (01) ==
LOC: ER 22:30
PROVIDERS: Emergency Medicine; Student in an Organized Health Care Education/Training Program
DX: S40.012A Contusion of left shoulder, initial encounter (principal); I95.9 Hypotension, unspecified; Z79.899 Other long term (current) drug therapy; Z79.4 Long term (current) use of insulin; Z79.84 Long term (current) use of oral hypoglycemic drugs; E11.9 Type 2 diabetes mellitus without complications; I10 Essential (primary) hypertension; E03.9 Hypothyroidism, unspecified; E78.5 Hyperlipidemia, unspecified
CPT/HCPCS: 71260; 73030; 74177; 80053; 81003; 84484; 85025; 93005; 93010; 99285-25; Q9967

== ENCOUNTER 2022-11-23 19:38 | Emergency (ER) | payer OTHER ==
[~2022-11-23] VITALS: Ht 167.6 cm; Wt 79.4 kg
[2022-11-23 19:52] VITALS: BP 111/80
[2022-11-23] MEDS ORDERED: BACLOFEN10 M4 PO (20:17)
[2022-11-23] MEDS ORDERED: LISI20 PO (20:17)
[2022-11-23] MEDS ORDERED: METF500 PO (20:18)
[2022-11-23] MEDS ORDERED: EUTHYROX137 MC1 PO (20:18)
[2022-11-23] MEDS ORDERED: PRAVASTATIN SOD20 MG PO (20:18)
[2022-11-23] MEDS ORDERED: DULOXETINE HCL60 M1 PO (20:19)
[2022-11-23] MEDS ORDERED: NEBIVOLOL HCL10 MG PO (20:19)
[2022-11-23] MEDS ORDERED: HYDCHL25 PO (20:20)
[2022-11-23] MEDS ORDERED: PREG150 PO (20:20)
[2022-11-23] MEDS ORDERED: Potassium Chlo20 ME1 PO (20:20)
[2022-11-23] MEDS ORDERED: AMLODIPINE BES2.5 MG PO (20:20)
[2022-11-23] MEDS ORDERED: TADALAFIL5 M1 PO (20:20)
[2022-11-23] MEDS ORDERED: TRULICITY3 MG/0.5 M SQ (20:21)
== END 2022-11-23 21:48 | disposition home or self-care (01) ==
LOC: ER 19:38
DX: S06.9X9A Unspecified intracranial injury with loss of consciousness of unspecified duration, initial encounter (principal); S01.511A Laceration without foreign body of lip, initial encounter; S16.1XXA Strain of muscle, fascia and tendon at neck level, initial encounter; W05.0XXA Fall from non-moving wheelchair, initial encounter; I10 Essential (primary) hypertension; E11.42 Type 2 diabetes mellitus with diabetic polyneuropathy; E03.9 Hypothyroidism, unspecified; E78.5 Hyperlipidemia, unspecified; E66.9 Obesity, unspecified; E27.1 Primary adrenocortical insufficiency; G51.0 Bell's palsy; Z68.28 Body mass index [BMI] 28.0-28.9, adult; Z99.81 Dependence on supplemental oxygen; Z87.891 Personal history of nicotine dependence; Z79.899 Other long term (current) drug therapy; Z79.84 Long term (current) use of oral hypoglycemic drugs
CPT/HCPCS: 70450; 71045; 72125

== ENCOUNTER 2023-03-24 17:32 | Inpatient (IN) | payer OTHER ==
[~2023-03-24] VITALS: Ht 167.6 cm; Wt 80.1 kg
[~2023-03-24 17:32] MED LIST changes: +AMLODIPINE BES2.5 MG PO; +BACLOFEN10 M4 PO; +EUTHYROX137 MC1 PO; +HYDCHL25 PO; +NEBIVOLOL HCL10 MG PO; +Potassium Chlo20 ME1 PO; +TADALAFIL5 M1 PO; +TRULICITY3 MG/0.5 M SQ
[2023-03-24 19:12] LABS: Base Excess Venous 0.7 mmol/L; Bicarbonate Venous 22.9 mmol/L (24.0-30.0); PCO2 Venous 52.2 mmHg (38-42); pH Blood Venous 7.32 (7.34-7.37)
[2023-03-24 19:12] LABS: BASOPHILS ABSOLUTE AUTO 0.07 K/mm3 (0.00-0.23); BASOPHILS PERCENT AUTO 1 % (0-2); EOSINOPHILS ABSOLUTE AUTO 0.41 K/mm3 (0.00-0.68); EOSINOPHILS PERCENT AUTO 4 % (0-6); Hemoglobin 14.8 g/dL (13.5-17.5); IMMATURE GRAN ABSOLUTE AUTO 0.02 K/mm3 (0.00-0.10); IMMATURE GRAN PERCENT AUTO 0 % (0-1); LYMPHOCYTES ABSOLUTE AUTO 1.97 K/mm3 (0.84-5.20); LYMPHOCYTES PERCENT AUTO 19 % (21-46); MONOCYTES ABSOLUTE AUTO 0.76 K/mm3 (0.16-1.47); MONOCYTES PERCENT AUTO 7 % (4-13); Mean Corpuscular HGB 30.1 pg (26.0-34.0); Mean Corpuscular HGB Conc 33.6 g/dL (31.5-36.5); Mean Corpuscular Volume 89 fL (80-100); Mean Platelet Volume 12.1 fL (9.1-12.4); NEUTROPHILS ABSOLUTE AUTO 7.33 K/mm3 (1.96-9.15); NEUTROPHILS PERCENT AUTO 69 % (41-73); Platelet Count 238 K/mm3 (150-400); RDW Coefficient Variation 14.1 % (11.7-14.2); RDW Standard Deviation 46.3 fL (35.1-46.3); Red Blood Cell Count 4.92 M/mm3 (4.30-5.90); White Blood Cell Count 10.56 K/mm3 (4.00-11.30)
[2023-03-24 19:28] LABS: Albumin, Blood 3.3 g/dL (3.4-5.0); Albumin/Globulin Ratio 1.1 (0.8-1.8); Bilirubin, Total 0.2 mg/dL (0.1-1.0); Bun/Creatinine Ratio 19.4 (12.0-20.0); Calcium, Blood 8.9 mg/dL (8.5-10.1); Creatinine, Blood 1.03 mg/dL (0.60-1.20); Globulin, Blood 3.1 g/dL (2.2-4.0); Potassium, Blood 4.2 mmol/L (3.5-5.5); Thyroid Stimulating Hormone 0.981 uIU/mL (0.360-4.800); Total Protein, Blood 6.4 g/dL (6.4-8.2)
[2023-03-24 20:15] LABS: Source, Urine Straight Cath
[2023-03-24 20:36] LABS: Bilirubin, Urine Neg (Neg); Blood, Urine Neg (Neg); Glucose Qualitative, Urine 1+ (Neg); Ketones, Urine Neg (Neg); Leukocyte Esterase, Urine Neg (Neg); Nitrite, Urine Neg (Neg); Protein, Urine 1+ (Neg); Urobilinogen, Urine NORM (Normal)
[2023-03-24 20:45] LABS: Appearance, Urine Clear (Clear); Color, Urine Yellow (P-Yellow)
[2023-03-24 21:17] LABS: U Amphetamine Screen Not Detected; U Barbituate Screen Not Detected; U Benzodiazapine Screen Not Detected; U Buprenorphine Screen Not Detected; U Cannabinoids Screen DETECTED; U Cocaine Screen Not Detected; U Methadone Screen Not Detected; U Methamphetamine Screen Not Detected; U Opiates Screen Not Detected; U Oxycodone Screen Not Detected; U Phencyclidine Screen Not Detected; U Propoxyphene Screen Not Detected
[2023-03-24 21:25] LABS: Influenza A, PCR NEGATIVE (NEGATIVE); Influenza B, PCR NEGATIVE (NEGATIVE); Resp Syncytial Virus, PCR NEGATIVE (NEGATIVE); SARS-Cov-2 (COVID-19) PCR, MMC NEGATIVE (NEGATIVE)
[2023-03-25] VITALS (8 sets, daily range): BP systolic 83–137; BP diastolic 60–80
--- NOTE | 2023-03-25 01:41 | NUR ---
ADMISSION NOTE PATIENT ARRIVED TO PCU 10 VIA STRETCHER AT 0040. SLIDE TRANSFER COMPLETED PATIENT REPORTED BEING TOO WEAK TO BEAR WEIGHT. PATIENT ALERT AND ORIENTED X4. REPORTS LEFT SHOULDER PAIN. PATIENT ON 2 LITERS O2 VIA NC. HYPOTENSIVE WITH MAP OF 67. DENIES CHEST PAIN OR SHORTNESS OF BREATH. SKIN ON HEAD AND LEFT FOREARM APPEAR THICKENED AND CAUSE ITCHING. WILL CONTINUE TO MONITOR. CALL LIGHT WITHIN REACH.
[2023-03-25] MEDS ORDERED: FENO54 PO (02:28)
[2023-03-25] MEDS ORDERED: FLUDROCORTISON0.1 M1 PO (02:31)
[2023-03-25] MEDS ORDERED: TRULICITY1.5 MG/0.1 (02:34)
[2023-03-25 04:03] LABS: BASOPHILS ABSOLUTE AUTO 0.08 K/mm3 (0.00-0.23); BASOPHILS PERCENT AUTO 1 % (0-2); EOSINOPHILS ABSOLUTE AUTO 0.34 K/mm3 (0.00-0.68); EOSINOPHILS PERCENT AUTO 3 % (0-6); Hematocrit 42.4 % (37.0-53.0); Hemoglobin 14.2 g/dL (13.5-17.5); IMMATURE GRAN ABSOLUTE AUTO 0.03 K/mm3 (0.00-0.10); IMMATURE GRAN PERCENT AUTO 0 % (0-1); LYMPHOCYTES ABSOLUTE AUTO 1.67 K/mm3 (0.84-5.20); LYMPHOCYTES PERCENT AUTO 15 % (21-46); MONOCYTES ABSOLUTE AUTO 0.87 K/mm3 (0.16-1.47); MONOCYTES PERCENT AUTO 8 % (4-13); Mean Corpuscular HGB 30.2 pg (26.0-34.0); Mean Corpuscular HGB Conc 33.5 g/dL (31.5-36.5); Mean Corpuscular Volume 90 fL (80-100); Mean Platelet Volume 11.4 fL (9.1-12.4); NEUTROPHILS ABSOLUTE AUTO 7.93 K/mm3 (1.96-9.15); NEUTROPHILS PERCENT AUTO 73 % (41-73); Platelet Count 192 K/mm3 (150-400); RDW Coefficient Variation 14.1 % (11.7-14.2); White Blood Cell Count 10.92 K/mm3 (4.00-11.30)
[2023-03-25 04:29] LABS: Albumin, Blood 2.7 g/dL (3.4-5.0); Anion Gap 7 mmol/L (6-16); Blood Urea Nitrogen 13 mg/dL (8-24); Bun/Creatinine Ratio 15.6 (12.0-20.0); CO2, Blood 22 mmol/L (21-32); Calcium, Blood 8.2 mg/dL (8.5-10.1); Chloride, Blood 114 mmol/L (98-108); Creatinine, Blood 0.84 mg/dL (0.60-1.20); Glomerular Filtration Rate 96 (60-); Glucose, Blood 239 mg/dL (70-99); Phosphorus, Blood 3.5 mg/dL (2.5-4.9); Potassium, Blood 3.9 mmol/L (3.5-5.5); Sodium, Blood 143 mmol/L (136-145)
[2023-03-25 04:30] LABS: Magnesium, Blood 1.1 mg/dL (1.6-2.4)
--- NOTE | 2023-03-25 06:41 | NUR ---
SHIFT SUMMARY PATIENT ALERT AND ORIENTED X4. ADMINISTERED 2 GM IV PIGGYBACK MAGNESIUM PER DR MCELROY FOR MAGNESIUM OF 1.1 THIS MORNING. NO OTHER ISSUES NOTED OVERNIGHT. WILL CONTINUE TO MONITOR. CALL LIGHT WITHIN REACH.
--- NOTE | 2023-03-25 08:46 | NUR ---
URINARY INCONTINENCE. pt had not notified staff, despite being alert and talking appropriately with the medical student Hilaria. Assisted with pericare, attends change and linen change. Set up to finish his breakfast at this time.
--- NOTE | 2023-03-25 19:21 | NUR ---
ASSUMED CARE OF PT AT 0700 THIS AM. NO ACUTE EVENTS, PT RESTING COMFORTABLY T/O THE DAY. PT HAS HAD NO COMPLAINTS. VSS SEE DOCUMENTED ASSESSMENT. PT NOTED TO BE FORGETFUL AT TIMES, BED ALARM ON FOR SAFETY. IVF INFUSING PER MD ORDERS. PT ACCIDENTALLY PULLED OUT LAC IV THIS AM, REPLACED WITH LW IV, PT TOLERATED WELL. PT IS ABLE TO USE CALL LIGHT FOR NEEDS, CALL LIGHT IN REACH. REPORT GIVEN TO NOC SHIFT RN.
--- NOTE | 2023-03-26 05:18 | NUR ---
SHIFT SUMMARY PT AXO TO BASELINE. VSS. ON 1-2LNC. VOIDING WELL. PT WITH CONTINUOUS HIGH BLOOD SUGARS >400. PT HAS RECEIVED MULTIPLE DOSES OF NOVOLIN, NOW BLOOD SUGARS <300, NO LONGER Q1H BLOOD SUGARS. WILL RELAY THIS TO DAY TEAM REGARDING CBG'S AND IV STEROIDS. CS CHANGED FROM LOW TO HIGH. PT HAS OTHERWISE BEEN RESTING. BED IN LOW POSITION. BED ALARM ON.
[2023-03-26 07:04] LABS: BASOPHILS ABSOLUTE AUTO 0.02 K/mm3 (0.00-0.23); BASOPHILS PERCENT AUTO 0 % (0-2); EOSINOPHILS PERCENT AUTO 0 % (0-6); Hematocrit 38.9 % (37.0-53.0); Hemoglobin 13.5 g/dL (13.5-17.5); IMMATURE GRAN ABSOLUTE AUTO 0.02 K/mm3 (0.00-0.10); IMMATURE GRAN PERCENT AUTO 0 % (0-1); LYMPHOCYTES ABSOLUTE AUTO 0.98 K/mm3 (0.84-5.20); LYMPHOCYTES PERCENT AUTO 10 % (21-46); MONOCYTES ABSOLUTE AUTO 0.51 K/mm3 (0.16-1.47); MONOCYTES PERCENT AUTO 5 % (4-13); Mean Corpuscular HGB Conc 34.7 g/dL (31.5-36.5); Mean Corpuscular Volume 86 fL (80-100); Mean Platelet Volume 11.5 fL (9.1-12.4); NEUTROPHILS ABSOLUTE AUTO 8.58 K/mm3 (1.96-9.15); NEUTROPHILS PERCENT AUTO 85 % (41-73); Platelet Count 214 K/mm3 (150-400); RDW Coefficient Variation 13.5 % (11.7-14.2); RDW Standard Deviation 43.1 fL (35.1-46.3); White Blood Cell Count 10.11 K/mm3 (4.00-11.30)
[2023-03-26 07:14] VITALS: BP 114/69
[2023-03-26 07:27] LABS: Bun/Creatinine Ratio 19.5 (12.0-20.0); Calcium, Blood 8.5 mg/dL (8.5-10.1); Creatinine, Blood 0.77 mg/dL (0.60-1.20); Potassium, Blood 3.5 mmol/L (3.5-5.5)
--- NOTE | 2023-03-26 17:03 | NUR ---
SHIFT SUMMARY: PT ALERT AND ORIENTED X4, ABLE TO FOLLOW COMMANDS AND MAKE NEEDS KNOWN. COOPERATIVE WITH CARE. FORGETFUL AT TIMES, BED ALARM IN PLACE FOR SAFETY. BP AND HR STABLE, AFEBRILE, SPO2 >95% ON 2L NC. CBG 200-280 THIS SHIFT, COVERED PER EMAR. PT SBA VIA FWW TO AND FROM BATHROOM, ONE BM. THIS RN SPOKE TO PT DAUGHTER ON PHONE THIS AFTERNOON AND UPDATED ON PLAN OF CARE. PT NOW MED NO TELE STATUS. CALL LIGHT IN REACH, WILL REPORT TO ONCOMING RN.
[2023-03-26 19:34] VITALS: BP 119/59
[2023-03-26 23:44] VITALS: BP 132/84
--- NOTE | 2023-03-26 23:51 | NUR ---
TRANSFERRED FROM PCU AT 2340. PATIENT A/O4, ROOM AIR, DRY FLAKY SKIN TO SCALP, AND DISCOLORATION TO LOWER EXREMITIES. PATIENT HAS NO QUESTIONS OR CONCERNS UPON TRANSFER TO UNIT. SITTING UP COMFORTABLE IN BED, CALL LIGHT WITHIN REACH, NONSKID SOCKS ON, BED ALARM ON. SECOND SKIN CHECK COMPLETED WITH FRANK NOLASCO NO WOUNDS OR PRESSURE ULCERS SEEN.
[2023-03-27] VITALS (7 sets, daily range): BP systolic 154–169; BP diastolic 84–95
--- NOTE | 2023-03-27 04:08 | NUR ---
SHIFT SUMMARY TRANSFER FROM PCU. A/OX4 BUT CAN BE FORGETFUL. SHIFT UNREMARKABLE, PATIENT WAS HUNGRY UPON TRANSER TO UNIT, GAVE HALF A TURKEY SANDWHICH AND THEN SLEPT MOST OF THE NIGHT.
[2023-03-27 08:33] LABS: BASOPHILS ABSOLUTE AUTO 0.04 K/mm3 (0.00-0.23); BASOPHILS PERCENT AUTO 0 % (0-2); EOSINOPHILS ABSOLUTE AUTO 0.03 K/mm3 (0.00-0.68); EOSINOPHILS PERCENT AUTO 0 % (0-6); Hematocrit 38.2 % (37.0-53.0); Hemoglobin 13.3 g/dL (13.5-17.5); IMMATURE GRAN ABSOLUTE AUTO 0.03 K/mm3 (0.00-0.10); IMMATURE GRAN PERCENT AUTO 0 % (0-1); LYMPHOCYTES ABSOLUTE AUTO 1.53 K/mm3 (0.84-5.20); LYMPHOCYTES PERCENT AUTO 17 % (21-46); MONOCYTES PERCENT AUTO 7 % (4-13); Mean Corpuscular HGB Conc 34.8 g/dL (31.5-36.5); Mean Corpuscular Volume 86 fL (80-100); Mean Platelet Volume 12.1 fL (9.1-12.4); NEUTROPHILS ABSOLUTE AUTO 6.74 K/mm3 (1.96-9.15); NEUTROPHILS PERCENT AUTO 75 % (41-73); Platelet Count 196 K/mm3 (150-400); RDW Coefficient Variation 13.9 % (11.7-14.2); RDW Standard Deviation 43.8 fL (35.1-46.3); Red Blood Cell Count 4.43 M/mm3 (4.30-5.90); White Blood Cell Count 8.97 K/mm3 (4.00-11.30)
--- NOTE | 2023-03-27 08:36 | NUR ---
ASSUMED CARE: RECIEVED REPORT FROM DAVID NOLASCO. PT SITTING UPRIGHT IN BED, EATING BREAKFAST. ON RA. DENIES NEEDS OR CONCERNS AT THIS TIME.
[2023-03-27 09:09] LABS: Bilirubin, Total 0.3 mg/dL (0.1-1.0); Bun/Creatinine Ratio 17.8 (12.0-20.0); Calcium, Blood 8.6 mg/dL (8.5-10.1); Creatinine, Blood 0.79 mg/dL (0.60-1.20); Globulin, Blood 3.1 g/dL (2.2-4.0); Potassium, Blood 3.8 mmol/L (3.5-5.5); Total Protein, Blood 6.1 g/dL (6.4-8.2)
--- NOTE | 2023-03-27 17:46 | NUR ---
SHIFT SUMMARY: PT ON 2L O2 DUE TO DESATURATION TO 88% WITH ACTIVITY. UP IN CHAIR AT THIS TIME. POSSIBLE DC IN NEXT FEW DAYS. ACTIVE PARTICIPANT WITH PHYSICAL THERAPY TODAY. NO ACUTE NEEDS OR CONCERNS AT THIS TIME.
[2023-03-28 04:38] VITALS: BP 147/91
[2023-03-28 07:08] VITALS: BP 138/82
[2023-03-28 09:32] VITALS: BP 145/82
[2023-03-28 09:35] VITALS: BP 157/87
[2023-03-28 09:38] VITALS: BP 155/105
[2023-03-28 09:55] LABS: Bun/Creatinine Ratio 13.8 (12.0-20.0); Creatinine, Blood 0.8 mg/dL (0.60-1.20); Magnesium, Blood 1.4 mg/dL (1.6-2.4); Potassium, Blood 3.6 mmol/L (3.5-5.5)
[2023-03-28 15:44] VITALS: BP 144/78
--- NOTE | 2023-03-28 18:34 | NUR ---
SHIFT SUMMARY PT AxOx4. PLEASANT AND COOPERATIVE WITH CARE. PT HAS BLE WEAKNESS. HE NEEDS 1 ASSIST WITH FWW AND GB TO AMBULATE. PT REPORTS ONGOING DIZZINESS UPON STANDING T/O THIS SHIFT. PT DENIED PAIN TODAY. PT HAD ONE BAG OF IV ABX AND 1 BAG OF IV MAGNESIUM THIS SHIFT. PT WAS BREATHING WITHOUT DIFFICULTY ON RA MOST OF THIS SHIFT. HE DID USE 2L O2 NC PRN BRIEFLY TODAY. PT HAS BG CHECK ACHS WITH HIGH SS INSULIN COVERAGE. PT IS CURRENTLY SITTING IN CHAIR EATING DINNER. PT DENIES ANY NEEDS AT THIS TIME. CALL LIGHT IN REACH.
--- NOTE | 2023-03-28 20:05 | NUR ---
NURSE NOTE PATIENTS CBG DURING HS CHECK WAS 395. NOTIFIED ABDULLAHI. NO ADDITIONAL ORDERS AT THIS TIME.
--- NOTE | 2023-03-29 03:03 | NUR ---
LATE CHART NOTE FOR PREVIOUS CHAINSTITCH HEMMER SUMMARY. MR VIEYRA SLEPT WELL OVERNIGHT. NO COMPLAINTS OF PAIN OR DISCOMFORT. HS BLOOD SUGAR WAS 241 WHICH WAS NOT WITHIN PARAMETERS FOR COVERAGE WITH HIS REGULAR INSULIN. AN IMPROVEMENT FROM CONSTANT CBG >300 SINCE ADMISSION. VOIDING WELL IN URINAL (DARIO URINE). NO OTHER CHANGES OVERNIGHT
[2023-03-29 03:47] VITALS: BP 124/89
--- NOTE | 2023-03-29 04:23 | NUR ---
SHIFT SUMMARY PATIENT IS ALERT AND ORIENTED. PATIENT HAS HAD NO ACUTE EVENTS THIS SHIFT. VITAL SIGNS REVIEWED. PATIENT HAS BEEN A ONE PERSON ASSIST WITH WALKER FOR TRANSFERS. PATIENT HAD ONE BAG OF STAT MAG FOR HYPOMAGNESIUM. PATIENT HAS BEEN ON ROOM AIR SATTING ABOVE 92 ALL SHIFT. PATIENT HAS HAD HIGH 395 CBG AT HS. PROVIDER IS AWARE AND HAS NO NEW ORDERS AT THIS TIME. PATIENT HAS BEEN IND WITH URINAL THIS SHIFT. PATIENT HAS BEEN RESTING IN BED MOST OF SHIFT. PATIENT HAS NOT COMPLAINED OF SOB, NAUSEA, PAIN OR VOMITTING THIS SHIFT. BED IN LOCKED AND LOWEST POSITION. CALL LIGHT IN PLACE. WILL MONITOR UNTIL SHIFT CHANGE.
[2023-03-29 07:42] VITALS: BP 122/75
[2023-03-29 15:41] LABS: Base Excess Venous 6.6 mmol/L; Bicarbonate Venous 27.8 mmol/L (24.0-30.0); PCO2 Venous 53.5 mmHg (38-42); pH Blood Venous 7.38 (7.34-7.37)
[2023-03-29] MEDS ORDERED: INSULIN GL100 UNIT/2 SC (17:11)
[2023-03-29] MEDS ORDERED: PRED20 PO (17:13)
[2023-03-29] MEDS ORDERED: EUCERIN INTENS250 M1 TOP (17:15)
--- NOTE | 2023-03-29 18:50 | NUR ---
DC- PT PICKED UP BY DAUGHTER. PT BROUGHT DOWN IN WC IN STABLE CONDITION AT 1840. PT LEFT WITH ALL BELONGINGS. DC INSTRUCTIONS AND NEW MEDS/DC MEDS DISCUSSED IN DETAIL W/ PATIENT. DAUGHTER DID NOT COME UP TO THE FLOOR, SO MEDS COULD ONLY BE DISCUSSED W/PATIENT. DC PAPERWORK HIGHLIGHTED AND WRITTEN ON FOR DAUGHTER TO SEE.
== END 2023-03-29 18:40 | disposition home health service (06) | DRG 871 ==
LOC: ER 17:32 → PCU 23:59 → MEDS 03-26 23:29
PROVIDERS: Emergency Medicine; Family Medicine; Hospitalist; Student in an Organized Health Care Education/Training Program; ADMIT Internal Medicine
DX: A41.9 Sepsis, unspecified organism (principal); J18.9 Pneumonia, unspecified organism; J96.21 Acute and chronic respiratory failure with hypoxia; J96.22 Acute and chronic respiratory failure with hypercapnia; J44.0 Chronic obstructive pulmonary disease with (acute) lower respiratory infection; E87.4 Mixed disorder of acid-base balance; E27.1 Primary adrenocortical insufficiency; G93.49 Other encephalopathy; I10 Essential (primary) hypertension; E11.42 Type 2 diabetes mellitus with diabetic polyneuropathy; G51.0 Bell's palsy; M17.0 Bilateral primary osteoarthritis of knee; E03.9 Hypothyroidism, unspecified; F12.90 Cannabis use, unspecified, uncomplicated; E78.5 Hyperlipidemia, unspecified; R65.20 Severe sepsis without septic shock; K42.9 Umbilical hernia without obstruction or gangrene; F03.90 Unspecified dementia, unspecified severity, without behavioral disturbance, psychotic disturbance, mood disturbance, and anxiety; E11.649 Type 2 diabetes mellitus with hypoglycemia without coma; E16.0 Drug-induced hypoglycemia without coma; T38.3X5A Adverse effect of insulin and oral hypoglycemic [antidiabetic] drugs, initial encounter; E83.42 Hypomagnesemia; I95.9 Hypotension, unspecified; E66.9 Obesity, unspecified; Z86.711 Personal history of pulmonary embolism; Z98.890 Other specified postprocedural states; Z98.1 Arthrodesis status; Z98.42 Cataract extraction status, left eye; Z98.41 Cataract extraction status, right eye; Z87.891 Personal history of nicotine dependence; Z79.899 Other long term (current) drug therapy; Z79.84 Long term (current) use of oral hypoglycemic drugs; Z79.890 Hormone replacement therapy; Z68.30 Body mass index [BMI] 30.0-30.9, adult; Z11.52 Encounter for screening for COVID-19
CPT/HCPCS: 0241U; 36415; 71045; 74177; 80048; 80053; 80069; 82803; 82947; 83036; 83605; 83690; 83735; 83880; 84145; 84443; 84484; 85025; 87040; 93005; 93010; 94760; 94762; 96361; 96365; 97116; 97162; 97530; 99285-25; A9270; C8929; J0456; J0696; J1644; J1720; J1815; J2543; J3475; J7030; J7050; J7512; Q9957; Q9967

== ENCOUNTER 2023-04-03 14:06 | Emergency (ER) | payer OTHER ==
[~2023-04-03] VITALS: Ht 160 cm; Wt 68.0 kg
[~2023-04-03 14:06] MED LIST changes: +EUCERIN INTENS250 M1 TOP; +INSULIN GL100 UNIT/2 SC; +PRED20 PO; +TRULICITY1.5 MG/0.1
[2023-04-03 15:07] LABS: BASOPHILS ABSOLUTE AUTO 0.05 K/mm3 (0.00-0.23); BASOPHILS PERCENT AUTO 1 % (0-2); EOSINOPHILS PERCENT AUTO 2 % (0-6); Hematocrit 44.7 % (37.0-53.0); Hemoglobin 15.3 g/dL (13.5-17.5); IMMATURE GRAN ABSOLUTE AUTO 0.07 K/mm3 (0.00-0.10); IMMATURE GRAN PERCENT AUTO 1 % (0-1); LYMPHOCYTES ABSOLUTE AUTO 1.36 K/mm3 (0.84-5.20); LYMPHOCYTES PERCENT AUTO 16 % (21-46); MONOCYTES PERCENT AUTO 6 % (4-13); Mean Corpuscular HGB 30.2 pg (26.0-34.0); Mean Corpuscular HGB Conc 34.2 g/dL (31.5-36.5); Mean Corpuscular Volume 88 fL (80-100); NEUTROPHILS ABSOLUTE AUTO 6.21 K/mm3 (1.96-9.15); NEUTROPHILS PERCENT AUTO 74 % (41-73); Platelet Count 220 K/mm3 (150-400); RDW Coefficient Variation 14.7 % (11.7-14.2); RDW Standard Deviation 47.2 fL (35.1-46.3); Red Blood Cell Count 5.07 M/mm3 (4.30-5.90); White Blood Cell Count 8.39 K/mm3 (4.00-11.30)
[2023-04-03 15:09] LABS: Base Excess Venous 7.4 mmol/L; Bicarbonate Venous 28.5 mmol/L (24.0-30.0); pH Blood Venous 7.36 (7.34-7.37)
[2023-04-03 15:26] LABS: Magnesium, Blood 1.9 mg/dL (1.6-2.4); Phosphorus, Blood 2.8 mg/dL (2.5-4.9)
[2023-04-03 15:27] LABS: Albumin, Blood 3.6 g/dL (3.4-5.0); Bilirubin, Total 0.5 mg/dL (0.1-1.0); Bun/Creatinine Ratio 20.2 (12.0-20.0); Calcium, Blood 8.8 mg/dL (8.5-10.1); Creatinine, Blood 0.84 mg/dL (0.60-1.20); Globulin, Blood 3.5 g/dL (2.2-4.0); Potassium, Blood 4.1 mmol/L (3.5-5.5); Total Protein, Blood 7.1 g/dL (6.4-8.2)
[2023-04-03 15:45] LABS: Source, Urine Straight Cath
[2023-04-03 15:53] LABS: Appearance, Urine Clear (Clear); Bilirubin, Urine Neg (Neg); Blood, Urine Neg (Neg); Glucose Qualitative, Urine Neg (Neg); Ketones, Urine Neg (Neg); Leukocyte Esterase, Urine Neg (Neg); Nitrite, Urine Neg (Neg); Protein, Urine Neg (Neg); Urobilinogen, Urine NORM (Normal)
[2023-04-03 15:59] LABS: Color, Urine Pale Yellow (P-Yellow)
[2023-04-03 21:01] LABS: Influenza A, PCR NEGATIVE (NEGATIVE); Influenza B, PCR NEGATIVE (NEGATIVE); Resp Syncytial Virus, PCR NEGATIVE (NEGATIVE); SARS-Cov-2 (COVID-19) PCR, MMC NEGATIVE (NEGATIVE)
[2023-04-05 17:20] VITALS: BP 170/87
== END 2023-04-05 17:24 | disposition home or self-care (01) ==
LOC: ER 14:06
PROVIDERS: Emergency Medicine
DX: F44.4 Conversion disorder with motor symptom or deficit (principal); F03.90 Unspecified dementia, unspecified severity, without behavioral disturbance, psychotic disturbance, mood disturbance, and anxiety; J45.909 Unspecified asthma, uncomplicated; Z79.899 Other long term (current) drug therapy; Z79.84 Long term (current) use of oral hypoglycemic drugs; Z79.4 Long term (current) use of insulin; Z79.52 Long term (current) use of systemic steroids; E11.42 Type 2 diabetes mellitus with diabetic polyneuropathy; Z87.891 Personal history of nicotine dependence; I10 Essential (primary) hypertension; E03.9 Hypothyroidism, unspecified; E78.5 Hyperlipidemia, unspecified; E66.9 Obesity, unspecified
CPT/HCPCS: 0241U; 51701; 71045; 80053; 81003; 82803; 82947; 83735; 83880; 84100; 84484; 85025; 93005; 93010; 97110; 97161; 99285-25; A9270; J7512

== ENCOUNTER → 2024-02-21 | Emergency (ER) | payer OTHER ==
[~2024-02-21] VITALS: Ht 167.6 cm; Wt 93.0 kg
[~2024-02-21] MED LIST changes: +NS 1,000 ML IV SCH
[2024-02-21 13:11] LABS: BASOPHILS ABSOLUTE AUTO 0.06 K/mm3 (0.00-0.23); BASOPHILS PERCENT AUTO 1 % (0-2); EOSINOPHILS ABSOLUTE AUTO 0.14 K/mm3 (0.00-0.68); EOSINOPHILS PERCENT AUTO 1 % (0-6); Hematocrit 44.5 % (37.0-53.0); Hemoglobin 15.8 g/dL (13.5-17.5); IMMATURE GRAN ABSOLUTE AUTO 0.04 K/mm3 (0.00-0.10); IMMATURE GRAN PERCENT AUTO 0 % (0-1); LYMPHOCYTES ABSOLUTE AUTO 1.88 K/mm3 (0.84-5.20); LYMPHOCYTES PERCENT AUTO 16 % (21-46); MONOCYTES ABSOLUTE AUTO 0.93 K/mm3 (0.16-1.47); MONOCYTES PERCENT AUTO 8 % (4-13); Mean Corpuscular HGB 29.4 pg (26.0-34.0); Mean Corpuscular HGB Conc 35.5 g/dL (31.5-36.5); Mean Corpuscular Volume 83 fL (80-100); Mean Platelet Volume 11.7 fL (9.1-12.4); NEUTROPHILS PERCENT AUTO 74 % (41-73); Platelet Count 275 K/mm3 (150-400); RDW Coefficient Variation 13.6 % (11.7-14.2); RDW Standard Deviation 40.9 fL (35.1-46.3); Red Blood Cell Count 5.37 M/mm3 (4.30-5.90); White Blood Cell Count 11.45 K/mm3 (4.00-11.30)
[2024-02-21 13:43] LABS: Albumin, Blood 3.5 g/dL (3.4-5.0); Albumin/Globulin Ratio 0.9 (0.8-1.8); Bilirubin, Total 0.6 mg/dL (0.1-1.0); Bun/Creatinine Ratio 24.3 (12.0-20.0); Calcium, Blood 9.6 mg/dL (8.5-10.1); Creatinine, Blood 0.7 mg/dL (0.60-1.20); Globulin, Blood 3.9 g/dL (2.2-4.0); Potassium, Blood 4.2 mmol/L (3.5-5.5); Total Protein, Blood 7.4 g/dL (6.4-8.2)
[2024-02-21 16:11] LABS: Free Thyroxine 1.45 ng/dL (0.70-1.60); Thyroid Stimulating Hormone 0.583 uIU/mL (0.360-4.800); Triiodothyronine, Free 1.2 pg/mL (2.18-3.98)
[2024-02-21 16:38] LABS: Influenza A, PCR NEGATIVE (NEGATIVE); Influenza B, PCR NEGATIVE (NEGATIVE); Resp Syncytial Virus, PCR NEGATIVE (NEGATIVE); SARS-Cov-2 (COVID-19) PCR, MMC NEGATIVE (NEGATIVE)
[2024-02-21 18:36] LABS: Source, Urine Clean Catch
[2024-02-21 18:56] LABS: Bilirubin, Urine Neg (Neg); Blood, Urine Neg (Neg); Color, Urine Amber (P-Yellow); Glucose Qualitative, Urine 4+ (Neg); Ketones, Urine 1+ (Neg); Leukocyte Esterase, Urine Neg (Neg); Nitrite, Urine Neg (Neg); Protein, Urine 2+ (Neg); Urobilinogen, Urine NORM (Normal)
[2024-02-21 19:31] LABS: Appearance, Urine Hazy (Clear)
[2024-02-21 19:33] LABS: Bacteria Mod /hpf; Hyaline Casts 0-2 /lpf (0-2); Mucus Light (0-Heavy); Red Blood Cells, Urine 0-2 /hpf (0-2); Squamous Epithelial Cells Rare /hpf (Few); White Blood Cells, Urine 0-2 /hpf (0-5)
[2024-02-23] VITALS: BP 154/95
== END ==
LOC: ER 12:26
PROVIDERS: Emergency Medicine; Student in an Organized Health Care Education/Training Program
DX: R53.1 Weakness (principal); R06.00 Dyspnea, unspecified; D72.829 Elevated white blood cell count, unspecified; R79.89 Other specified abnormal findings of blood chemistry; F03.90 Unspecified dementia, unspecified severity, without behavioral disturbance, psychotic disturbance, mood disturbance, and anxiety; E11.65 Type 2 diabetes mellitus with hyperglycemia; E11.42 Type 2 diabetes mellitus with diabetic polyneuropathy; I10 Essential (primary) hypertension; E03.9 Hypothyroidism, unspecified; E78.5 Hyperlipidemia, unspecified; E27.1 Primary adrenocortical insufficiency; Z86.711 Personal history of pulmonary embolism; Z96.653 Presence of artificial knee joint, bilateral; Z87.891 Personal history of nicotine dependence; Z79.85 Long-term (current) use of injectable non-insulin antidiabetic drugs; Z79.84 Long term (current) use of oral hypoglycemic drugs; Z79.890 Hormone replacement therapy; Z79.4 Long term (current) use of insulin; Z79.52 Long term (current) use of systemic steroids; Z79.899 Other long term (current) drug therapy
CPT/HCPCS: 0241U; 71046; 71260; 74177; 80053; 81001; 83880; 84145; 84439; 84443; 84481; 84484; 85025; 85379; 97110; 97116; 97162; J7030; Q9967

== ENCOUNTER 2024-03-01 01:32 | Day surgery (SDC) | payer OTHER ==
[~2024-03-01 01:32] MED LIST changes: -NS 1,000 ML IV SCH
[2024-03-01] MEDS ORDERED: Cosyntropin 0.25 MG / ML 1ML Vial IM SCH (07:30)
[2024-03-01] MEDS ORDERED: Cosyntropin 0.25 MG / ML 1ML Vial IV ONE (07:30)
[2024-03-01] MEDS ORDERED: Amlodipine Bes2.5 MG PO (08:23)
[2024-03-01] MEDS ORDERED: GABA300 PO (08:25)
[2024-03-01] MEDS ORDERED: HYDRA25 PO (08:25)
[2024-03-01] MEDS ORDERED: TADA10TA PO (08:27)
[2024-03-01] MEDS ORDERED: TRAM50 PO (08:28)
[2024-03-01] MEDS ORDERED: TRULICITY1.5 MG/0.1 SC (08:29)
[2024-03-01 08:30] VITALS: BP 156/81
[2024-03-01] MEDS ORDERED: VITAMIN D31250 MC2 PO (08:30)
[2024-03-01 10:50] LABS: Bun/Creatinine Ratio 27.7 (12.0-20.0); Calcium, Blood 8.9 mg/dL (8.5-10.1); Creatinine, Blood 0.61 mg/dL (0.60-1.20); Potassium, Blood 4.4 mmol/L (3.5-5.5); Thyroid Stimulating Hormone 1.03 uIU/mL (0.360-4.800)
== END 2024-03-01 10:09 | disposition home or self-care (01) ==
LOC: ATC 01:32
PROVIDERS: Internal Medicine Endocrinology, Diabetes & Metabolism
DX: R94.7 Abnormal results of other endocrine function studies (principal); G47.33 Obstructive sleep apnea (adult) (pediatric); E11.42 Type 2 diabetes mellitus with diabetic polyneuropathy; E03.9 Hypothyroidism, unspecified; Z79.84 Long term (current) use of oral hypoglycemic drugs; Z79.890 Hormone replacement therapy; Z79.899 Other long term (current) drug therapy
CPT/HCPCS: 36415; 80048; 80400; 82533; 84443; 96372; J0834

== ENCOUNTER 2024-03-22 00:16 | Emergency (ER) | payer OTHER ==
[~2024-03-22] VITALS: Ht 167.6 cm; Wt 88.5 kg
[~2024-03-22 00:16] MED LIST changes: +Amlodipine Bes2.5 MG PO; +GABA300 PO; +HYDRA25 PO; +TADA10TA PO; +TRULICITY1.5 MG/0.1 SC; +VITAMIN D31250 MC2 PO
[2024-03-22 01:00] LABS: BASOPHILS ABSOLUTE AUTO 0.02 K/mm3 (0.00-0.23); BASOPHILS PERCENT AUTO 0 % (0-2); EOSINOPHILS ABSOLUTE AUTO 0.04 K/mm3 (0.00-0.68); EOSINOPHILS PERCENT AUTO 1 % (0-6); Hematocrit 38.6 % (37.0-53.0); Hemoglobin 13.6 g/dL (13.5-17.5); IMMATURE GRAN ABSOLUTE AUTO 0.01 K/mm3 (0.00-0.10); IMMATURE GRAN PERCENT AUTO 0 % (0-1); LYMPHOCYTES ABSOLUTE AUTO 1.62 K/mm3 (0.84-5.20); LYMPHOCYTES PERCENT AUTO 25 % (21-46); MONOCYTES ABSOLUTE AUTO 0.91 K/mm3 (0.16-1.47); MONOCYTES PERCENT AUTO 14 % (4-13); Mean Corpuscular HGB 29.9 pg (26.0-34.0); Mean Corpuscular HGB Conc 35.2 g/dL (31.5-36.5); Mean Corpuscular Volume 85 fL (80-100); Mean Platelet Volume 11.1 fL (9.1-12.4); NEUTROPHILS ABSOLUTE AUTO 3.89 K/mm3 (1.96-9.15); NEUTROPHILS PERCENT AUTO 60 % (41-73); Platelet Count 178 K/mm3 (150-400); RDW Coefficient Variation 14.3 % (11.7-14.2); RDW Standard Deviation 44.2 fL (35.1-46.3); Red Blood Cell Count 4.55 M/mm3 (4.30-5.90); White Blood Cell Count 6.49 K/mm3 (4.00-11.30)
[2024-03-22 01:18] LABS: Albumin, Blood 2.9 g/dL (3.4-5.0); Albumin/Globulin Ratio 0.8 (0.8-1.8); Bilirubin, Total 0.4 mg/dL (0.1-1.0); Bun/Creatinine Ratio 22.1 (12.0-20.0); Calcium, Blood 8.5 mg/dL (8.5-10.1); Creatinine, Blood 1.04 mg/dL (0.60-1.20); Globulin, Blood 3.5 g/dL (2.2-4.0); Total Protein, Blood 6.4 g/dL (6.4-8.2)
[2024-03-22 01:51] LABS: Influenza B, PCR NEGATIVE (NEGATIVE); Resp Syncytial Virus, PCR NEGATIVE (NEGATIVE); SARS-Cov-2 (COVID-19) PCR, MMC NEGATIVE (NEGATIVE)
[2024-03-22] MEDS ORDERED: Ipratropium/Albuterol SulF 2.5-0.5MG/3 ML Amp INH ONE (03:25)
[2024-03-22] MEDS ORDERED: AZIT250 PO ×2 (04:25)
[2024-03-22] MEDS ORDERED: Azithromycin 250 MG Tab PO ONE (04:25)
[2024-03-22 06:26] LABS: Influenza A, PCR POSITIVE (NEGATIVE)
[2024-03-22 07:16] VITALS: BP 110/81
[2024-03-23] MEDS ORDERED: OSEL75CA PO ×2 (14:05)
[2024-03-23] MEDS ORDERED: AZIT250 PO ×2 (14:05)
== END 2024-03-22 07:41 ==
LOC: ER 00:16
PROVIDERS: Emergency Medicine
DX: J10.00 Influenza due to other identified influenza virus with unspecified type of pneumonia (principal); I10 Essential (primary) hypertension; E11.42 Type 2 diabetes mellitus with diabetic polyneuropathy; E78.5 Hyperlipidemia, unspecified; E03.9 Hypothyroidism, unspecified; Z87.891 Personal history of nicotine dependence; Z79.84 Long term (current) use of oral hypoglycemic drugs; Z79.4 Long term (current) use of insulin; Z79.899 Other long term (current) drug therapy
CPT/HCPCS: 0241U; 71046; 80053; 85025; 93005; 93010; 94640; 94664; 99285-25; A9270

== ENCOUNTER 2024-03-22 09:04 | Inpatient (IN) | payer OTHER ==
[~2024-03-22] VITALS: Ht 167.6 cm; Wt 80.6 kg
[~2024-03-22 09:04] MED LIST changes: +AZIT250 PO
[2024-03-22] MEDS ORDERED: Ipratropium/Albuterol SulF 2.5-0.5MG/3 ML Amp INH ONE (10:00)
[2024-03-22] MEDS ORDERED: NS 1,000 ML IV SCH (10:00)
[2024-03-22] MEDS ORDERED: PredniSONE 20 MG Tab PO ONE (10:00)
[2024-03-22] MEDS ORDERED: Oseltamivir Phosphate 75 MG Cap PO ONE (10:00)
[2024-03-22] MEDS ORDERED: Ketorolac Tromethamine 30mg Vial IV ONE (10:25)
[2024-03-22] MEDS ORDERED: FLU VACC TS2024-25(6MOS UP)/PF 45 MCG/0.5 ML SYRINGE IM SCH (11:50)
[2024-03-22] MEDS ORDERED: Ondansetron HCl 2 MG / ML 2ML Vial IV PRN (11:50)
[2024-03-22] MEDS ORDERED: Acetaminophen 325 MG TABLET PO PRN (11:55)
[2024-03-22] MEDS ORDERED: TraMADol HCl 50 MG Tab PO PRN (12:20)
[2024-03-22] MEDS ORDERED: Fludrocortisone Acetate 0.1 MG Tab PO SCH (13:00)
[2024-03-22] MEDS ORDERED: Azithromycin 250 MG Tab PO SCH (13:00)
[2024-03-22] MEDS ORDERED: Gabapentin 300 MG Cap PO SCH (14:00)
[2024-03-22 15:49] VITALS: BP 99/65
[2024-03-22] MEDS ORDERED: MetFORMIN HCl 500 mg PO SCH (17:00)
[2024-03-22] MEDS ORDERED: Carvedilol 6.25 MG Tab PO SCH (17:00)
[2024-03-22] MEDS ORDERED: Insulin Human Lispro 100 Units/ML 3ML Syringe SC SCH (17:00)
--- NOTE | 2024-03-22 18:17 | NUR ---
SHIFT SUMMARY PT A NEW ADMIT THIS SHIFT, ORIENTED TO SELF, SITUATION, AND . BR AT THIS TIME PER THE ORDER. PT USES URINAL INDEPENDENTLY AT TIMES, STATES HE IS INCONTINENT. NO PAIN,N,V,D AT THIS TIME. PT USES THE CALL LIGHT. NO EVENTS PER TELE. PT ON PRECAUTIONS FOR FLU. RESPOSITIONED SINCE ADMIT. CALL LIGHT WITHIN REACH, BED LOCKED AND IN THE LOWEST POSITION. WILL REPORT TO ONCOMING NURSE.
[2024-03-22 19:54] VITALS: BP 107/76
[2024-03-22] MEDS ORDERED: Baclofen 10 MG Tab PO SCH (21:00)
[2024-03-22] MEDS ORDERED: Oseltamivir Phosphate 75 MG Cap PO SCH (21:00)
[2024-03-22] MEDS ORDERED: DULoxetine HCL 60 MG Capsule DR PO SCH (21:00)
[2024-03-22] MEDS ORDERED: Pregabalin 75 MG Cap PO SCH (21:00)
[2024-03-22] MEDS ORDERED: Insulin Glargine-Yfgn 100 Unit/mL 3 ML SYR SC SCH (21:00)
[2024-03-23 02:30] VITALS: BP 105/59
--- NOTE | 2024-03-23 03:49 | NUR ---
SHIFT SUMMARY 68 YR M ADMITTED ON 03/22/24. FULL CODE. NO ACUTE CHANGES THIS SHIFT. PT APPEARS TO HAVE SLEPT FOR MOST OF THIS SHIFT. HE IS ABLE TO REPOSITION HIMSELF IN BED. CALLS APPROPRIATELY FOR ASSISTANCE. NO ADVERSE EVENTS REPORTED BY TELE. BED IN LOW POSITION AND CALL LIGHT IN REACH.
[2024-03-23 07:26] VITALS: BP 122/82
[2024-03-23] MEDS ORDERED: Levothyroxine Sodium 0.137 MG Tab PO SCH (09:00)
[2024-03-23] MEDS ORDERED: Lisinopril 20 MG Tab PO SCH (09:00)
[2024-03-23] MEDS ORDERED: Fenofibrate 67 MG Cap PO SCH (09:00)
[2024-03-23] MEDS ORDERED: Eucerin Unscented Lotion 240 ml TOP SCH (09:00)
[2024-03-23] MEDS ORDERED: Enoxaparin 40 MG/0.4 ML SYR SC SCH (09:00)
[2024-03-23] MEDS ORDERED: Misc. Tablet PO SCH (09:00)
[2024-03-23] MEDS ORDERED: Pravastatin Sodium 20 MG Tab PO SCH (09:00)
[2024-03-23] MEDS ORDERED: OSEL75CA PO ×2 (14:05)
[2024-03-23] MEDS ORDERED: AZIT250 PO ×2 (14:05)
--- NOTE | 2024-03-23 17:39 | NUR ---
DISCHARGE NOTE PT DISCHARGED TO HOME, PICKED UP BY [facility]. IV REMOVED, TELE RETURNED. DISCHARGE INFORMATION AND EDUCATION PROVIDED. PT WENT BY WHEELCHAIR. DAUGHTER AND CAREGIVERS AWARE.
[2024-03-27] MEDS ORDERED: Misc. Injectable SC SCH (12:50)
== END 2024-03-23 17:14 | disposition home health service (06) | DRG 193 ==
LOC: ER 09:04 → ERHOLD 11:48 → MEDS 11:48
PROVIDERS: ADMIT Internal Medicine
DX: J10.1 Influenza due to other identified influenza virus with other respiratory manifestations (principal); J96.01 Acute respiratory failure with hypoxia; E27.1 Primary adrenocortical insufficiency; J44.9 Chronic obstructive pulmonary disease, unspecified; E11.42 Type 2 diabetes mellitus with diabetic polyneuropathy; Z74.01 Bed confinement status; E03.9 Hypothyroidism, unspecified; M19.90 Unspecified osteoarthritis, unspecified site; Z86.711 Personal history of pulmonary embolism; Z79.01 Long term (current) use of anticoagulants; E78.5 Hyperlipidemia, unspecified; Z98.1 Arthrodesis status; Z98.890 Other specified postprocedural states; Z86.19 Personal history of other infectious and parasitic diseases; Z87.891 Personal history of nicotine dependence; Z79.4 Long term (current) use of insulin; Z79.2 Long term (current) use of antibiotics; Z79.899 Other long term (current) drug therapy; Z79.890 Hormone replacement therapy; Z79.84 Long term (current) use of oral hypoglycemic drugs
CPT/HCPCS: 0241U; 71046; 80053; 82947; 83880; 84145; 85025; 93005; 93010; 94640; 94664; 94760; 96374; 97162; 97530; 99285-25; A9270; J1650; J1815; J1885; J7030; J7512

== ENCOUNTER 2025-01-09 22:59 | Inpatient (IN) | payer OTHER ==
[~2025-01-09] VITALS: Ht 160 cm; Wt 92.8 kg
[~2025-01-09 22:59] MED LIST changes: +AZIT500 PO; +BASAGLAR K100 UNIT/1 SC; +BISA5EC; +HUMALOG KW100 UNIT/1; +HUMALOG100 UNIT/1 SC; +IPRAT-ALBUT 0.5-3 ML INH; +LEVSOD112 PO; +OSEL75CA PO; +OZEMPIC2 MG/0.75 SQ
[2025-01-09] MEDS ORDERED: Albuterol 2.5 MG/3 ML VIAL INH SCH (23:10)
[2025-01-09 23:22] LABS: BASOPHILS ABSOLUTE AUTO 0.08 K/mm3 (0.00-0.23); BASOPHILS PERCENT AUTO 1 % (0-2); EOSINOPHILS ABSOLUTE AUTO 0.44 K/mm3 (0.00-0.68); EOSINOPHILS PERCENT AUTO 5 % (0-6); Hematocrit 46.6 % (37.0-53.0); Hemoglobin 15.2 g/dL (13.5-17.5); IMMATURE GRAN ABSOLUTE AUTO 0.05 K/mm3 (0.00-0.10); IMMATURE GRAN PERCENT AUTO 1 % (0-1); LYMPHOCYTES ABSOLUTE AUTO 2.73 K/mm3 (0.84-5.20); LYMPHOCYTES PERCENT AUTO 29 % (21-46); MONOCYTES ABSOLUTE AUTO 0.82 K/mm3 (0.16-1.47); MONOCYTES PERCENT AUTO 9 % (4-13); Mean Corpuscular HGB Conc 32.6 g/dL (31.5-36.5); Mean Corpuscular Volume 91 fL (80-100); NEUTROPHILS ABSOLUTE AUTO 5.47 K/mm3 (1.96-9.15); NEUTROPHILS PERCENT AUTO 57 % (41-73); NRBC ABSOLUTE 0.00 K/mm3 (0.00-0.02); NRBC Auto 0.0 /100 WBC (0.0-0.2); Platelet Count 226 K/mm3 (150-400); RDW Coefficient Variation 14.6 % (11.7-14.2); RDW Standard Deviation 48.7 fL (35.1-46.3)
[2025-01-09 23:32] LABS: pH Blood Venous 7.31 (7.34-7.37)
[2025-01-09 23:39] LABS: Anion Gap 5.0 mmol/L (3-11); Blood Urea Nitrogen 20.0 mg/dL (8-24); CO2, Blood 32.0 mmol/L (21-32); Calcium, Blood 9.7 mg/dL (8.5-10.1); Chloride, Blood 104.0 mmol/L (98-108); Creatinine, Blood 0.97 mg/dL (0.60-1.20); Glucose, Blood 213.0 mg/dL (70-99); Potassium, Blood 4.3 mmol/L (3.5-5.5); Sodium, Blood 137.0 mmol/L (136-145)
[2025-01-09 23:59] LABS: Influenza A, PCR NEGATIVE (NEGATIVE); Influenza B, PCR NEGATIVE (NEGATIVE); Resp Syncytial Virus, PCR NEGATIVE (NEGATIVE); SARS-Cov-2 (COVID-19) PCR, MMC NEGATIVE (NEGATIVE)
[2025-01-10] MEDS ORDERED: Dose Adjust by Pharmacy XX STA ×3 (01:30→11:27)
[2025-01-10] MEDS ORDERED: Heparin Sodium 5000 Units/ML 1ML MDV IV ONE (01:35)
[2025-01-10] MEDS ORDERED: Heparin Sodium,Porcine/0.5 NS 500 ML IV SCH (01:35)
[2025-01-10 01:37] LABS: Anti-Xa UFH, PHA Monitoring <0.10 IU/mL; Prothrombin Time Results 11.9 Sec (9.7-11.5)
[2025-01-10] MEDS ORDERED: Ipratropium/Albuterol SulF 2.5-0.5MG/3 ML Amp INH SCH (04:25)
[2025-01-10] MEDS ORDERED: Ondansetron HCl 2 MG / ML 2ML Vial IV PRN (04:25)
[2025-01-10 05:03] LABS: pH Blood Venous 7.34 (7.34-7.37)
[2025-01-10 05:27] VITALS: BP 129/91
[2025-01-10] MEDS ORDERED: Fenofibrate54 MG PO (05:55)
[2025-01-10] MEDS ORDERED: INSULIN AS100 UNIT/6 SC (06:04)
--- NOTE | 2025-01-10 06:44 | NUR ---
SHIFT SUMMARY PT ARRIVED TO UNIT AT 0530. PT A&O X2. SEE ASSESSMENT. POOR HISTORIAN. HX DONE PER MD NOTES AND PREVIOUS ADMIMSSION IN NOVEMBER. CALM AND COOPERATIVE WITH CARE. BED ALARM ON FOR SAFETY. ON 5L VIA OXIMASK WITH SPO2 >92%. TACHYPNEA NOTED. BP STABLE. SR ON MONITOR. HEP GTT INFUSING PER EMAR FOR +DVT. PT DENIES PAIN. MAX ASSIST X2 WITH REPOSITIONING. BED IN LOWEST POSITION AND CALL LIGHT WITHIN REACH. THIS RN WILL REPORT TO ONCOMING DAYSHIFT RN.
[2025-01-10] MEDS ORDERED: Furosemide 10 MG / ML 2ML Vial IV SCH (12:00)
[2025-01-10 12:30] VITALS: BP 131/95
--- NOTE | 2025-01-10 13:47 | NUR ---
Pt. is awake and just been transerred to achair when he welcomes my visit. Pt. displayed evidence of discomfort and at moment SOB. Facilitated a life review and listened with empathy and interest. Pt. verbalized that he has support of his children but his Mosque ross is not rooted in a local parish. Pt/ welcomed prayer. Prayed with Pt. pt. verbalized gratitude for the spiritual life visit.
[2025-01-10 15:00] VITALS: BP 133/80
[2025-01-10] MEDS ORDERED: Insulin Glargine-Yfgn 100 Unit/mL 3 ML SYR SC ONE (15:00)
[2025-01-10] MEDS ORDERED: Insulin Human Lispro 100 Units/ML 3ML Syringe SC SCH ×2 (16:30→21:00)
--- NOTE | 2025-01-10 18:31 | NUR ---
SHIFT SUMMARY; ASSUMED CARE AT 0700. A/A/OX2-3, HX OF DEMENTIA WITH CONFUSION. NON AMBULATORY AT BASELINE. Q 2 TURNS IN BED, SAT IN RECLINER MOST OF SHIFT WITH REPOSITIONING. 6L 02 VIA NC TO MAINTAIN TARGET SATS OF 88-91% PER ORDER. PURWICK IN PLACE. HEPARIN DC'D AND ELIQUIS STARTED. COOPERATIVE WITH CARE, VSS, WILL CONTINUE TO MONITOR AND TREAT UNTIL REPORT GIVEN TO NOC SHIFT RN.
--- NOTE | 2025-01-10 20:00 | NUR ---
MD NOTIFICIATION PT UP TO BEDSIDE COMMODE AND DESATED TO 85. RN JONES INCREASED O2 TO 11 UNITS FOR BEDSIDE AND CALLED RT TO COME ROUND. MD UPDATED THAT PT SUGAR 454. REVIEWED 20 UNITS GLARGINE GIVEN AT 1501 TODAY. PT SLIDINIG SCALE TO BE CHANGED BY INCREASED FROM LOW. GIVE NEW INSULIN DOSAGE PER SLIDING SCALE AND LOGAN AT 0000 AND IF REMAINS ELEVATED RECALL DR ELIZONDO
[2025-01-10 20:45] VITALS: BP 152/98
[2025-01-11 00:22] VITALS: BP 109/69
--- NOTE | 2025-01-11 00:56 | NUR ---
NOTIFICATION OF 0030 ACCUCK REDRAQW ACCUCK [id number]. CALLED AND SPOKE TO DR ELIZONDO TO TELL HER MIDNIGHT REDRAW OF BLOOD SUGAR. TO REVIEW SUGARS AND WILL PUT IN ORDERS
[2025-01-11 03:30] VITALS: BP 107/64
[2025-01-11 03:33] LABS: Influenza A/2009-H1 Not Detected (NOT DETECT); SARS-Cov-2 (COVID-19), BioFire Not Detected (NOT DETECT)
[2025-01-11] MEDS ORDERED: Insulin Human Lispro 100 Units/ML 3ML Syringe SC ONE (04:00)
[2025-01-11 04:31] LABS: BASOPHILS ABSOLUTE AUTO 0.01 K/mm3 (0.00-0.23); BASOPHILS PERCENT AUTO 0 % (0-2); EOSINOPHILS ABSOLUTE AUTO 0.00 K/mm3 (0.00-0.68); EOSINOPHILS PERCENT AUTO 0 % (0-6); Hematocrit 36.7 % (37.0-53.0); Hemoglobin 12.7 g/dL (13.5-17.5); IMMATURE GRAN ABSOLUTE AUTO 0.06 K/mm3 (0.00-0.10); IMMATURE GRAN PERCENT AUTO 1 % (0-1); LYMPHOCYTES ABSOLUTE AUTO 0.77 K/mm3 (0.84-5.20); LYMPHOCYTES PERCENT AUTO 6 % (21-46); MONOCYTES ABSOLUTE AUTO 0.51 K/mm3 (0.16-1.47); MONOCYTES PERCENT AUTO 4 % (4-13); Mean Corpuscular HGB Conc 34.6 g/dL (31.5-36.5); Mean Corpuscular Volume 87 fL (80-100); NEUTROPHILS ABSOLUTE AUTO 11.51 K/mm3 (1.96-9.15); NEUTROPHILS PERCENT AUTO 89 % (41-73); NRBC ABSOLUTE 0.00 K/mm3 (0.00-0.02); NRBC Auto 0.0 /100 WBC (0.0-0.2); Platelet Count 211 K/mm3 (150-400); RDW Coefficient Variation 14.6 % (11.7-14.2); RDW Standard Deviation 45.5 fL (35.1-46.3)
[2025-01-11 04:51] LABS: Alanine Aminotransfer (ALT/SGP 16.0 U/L (12-78); Albumin, Blood 2.9 g/dL (3.4-5.0); Albumin/Globulin Ratio 0.7 (0.8-1.8); Anion Gap 9.0 mmol/L (3-11); Aspartate Aminotrans (AST/SGOT 13.0 U/L (12-37); Bilirubin, Total 0.4 mg/dL (0.1-1.0); Blood Urea Nitrogen 26.0 mg/dL (8-24); CO2, Blood 29.0 mmol/L (21-32); Calcium, Blood 8.6 mg/dL (8.5-10.1); Chloride, Blood 100.0 mmol/L (98-108); Creatinine, Blood 0.91 mg/dL (0.60-1.20); Globulin, Blood 4.0 g/dL (2.2-4.0); Glucose, Blood 317.0 mg/dL (70-99); Potassium, Blood 4.5 mmol/L (3.5-5.5); Sodium, Blood 133.0 mmol/L (136-145); Total Protein, Blood 6.9 g/dL (6.4-8.2)
[2025-01-11 07:21] VITALS: BP 103/76
[2025-01-11] MEDS ORDERED: Insulin Human Lispro 100 Units/ML 3ML Syringe SC SCH ×3 (08:30→11:30)
[2025-01-11] MEDS ORDERED: Insulin Glargine-Yfgn 100 Unit/mL 3 ML SYR SC SCH ×3 (09:00→18:00)
[2025-01-11 15:29] VITALS: BP 137/80
--- NOTE | 2025-01-11 16:10 | NUR ---
Transfer to Medical Pt medical no telemetry status. A&O to self & year. Pt very forgetful. VSS. Spo2 > 92% on 3-6L NC or oxymask this shift. Pt reports inability to move BLE but reports having sensation in BLE. Ceiling lift used for OOB transfers. Pt up to BSC w/ lift, having loose dark brown stool. Pt continent of stool. Male purewick in place draining yellow urine. Report given to accepting medical floor RN assuming care of pt. Pt taken to rm 364 by bed w/ belongings @ approx 1600.
--- NOTE | 2025-01-11 16:11 | NUR ---
RN NOTE MR VIEYRA WAS TRANSFERED TO MEDICAL UNIT FROM PCU ON 5L OXYGEN MASK. PULSE OX 94% ON CONTINUOUS PULSE OX, DECREASED TO 4L OXYGEN. MR VIEYRA WAS EDUCATED WORKDAY MANAGER SYSTEM AND PLAN OF CARE/SAFETY PRECAUTIONS. BED ALARM ON. SKIN ASSESSMENT DONE AND PT SUPPORTED ONTO HIS RIGHT SIDE WITH PILLOW IN BED. PURE WICK IN PLACE. HE DENIES PAIN, NO RESP DISTRESS AT REST ON 4L FM.
[2025-01-11 17:06] VITALS: BP 128/83
[2025-01-11 20:03] VITALS: BP 149/86
--- NOTE | 2025-01-12 04:31 | NUR ---
SHIFT SUMMARY NO ACUTE EVENTS DURING THIS SHIFT. PT WEARING OXYMASK, WAS ON 5L @HS. TITRATED TO 3L, O2 SAT'S 92%. PT OCCASIONALLY TAKES OFF THE OXYMASK, EASILY DESATS TO MID 80'S. PULSE OXIMETER IN PLACE. BLE'S REDDENED, +2 EDEMA. PUREWICK DRAINING YELLOW COLOR URINE. NO BM DURING THIS SHIFT, BED ASHER OFFERED FEW TIMES PER PT REQUEST. PT LIKES TO LAY ON HIS RIGHT SIDE, ASSISTED WITH PILLOWS TO REMAIN IN THE POSITION. PT GETS AGITATED WHEN ASSISTED. HS BG 287, HUMALOG ADMINISTERED ORDERED. PT IS A/O X2, UNABLE TO REORIENT. BED AT THE LOWEST POSITION, CALL LIGHT W/I REACH. PT IS ABLE TO MAKE HIS NEEDS KNOWN AND IS COOPERATIVE WITH CARE.
[2025-01-12] MEDS ORDERED: NS 250 ML IV PRN (04:45)
[2025-01-12 04:47] LABS: BASOPHILS ABSOLUTE AUTO 0.01 K/mm3 (0.00-0.23); BASOPHILS PERCENT AUTO 0 % (0-2); EOSINOPHILS ABSOLUTE AUTO 0.00 K/mm3 (0.00-0.68); EOSINOPHILS PERCENT AUTO 0 % (0-6); Hematocrit 38.0 % (37.0-53.0); Hemoglobin 13.0 g/dL (13.5-17.5); IMMATURE GRAN ABSOLUTE AUTO 0.08 K/mm3 (0.00-0.10); IMMATURE GRAN PERCENT AUTO 1 % (0-1); LYMPHOCYTES ABSOLUTE AUTO 0.67 K/mm3 (0.84-5.20); LYMPHOCYTES PERCENT AUTO 5 % (21-46); MONOCYTES ABSOLUTE AUTO 0.64 K/mm3 (0.16-1.47); MONOCYTES PERCENT AUTO 5 % (4-13); Mean Corpuscular HGB Conc 34.2 g/dL (31.5-36.5); Mean Corpuscular Volume 88 fL (80-100); NEUTROPHILS ABSOLUTE AUTO 12.23 K/mm3 (1.96-9.15); NEUTROPHILS PERCENT AUTO 90 % (41-73); NRBC ABSOLUTE 0.00 K/mm3 (0.00-0.02); NRBC Auto 0.0 /100 WBC (0.0-0.2); Platelet Count 211 K/mm3 (150-400); RDW Coefficient Variation 14.8 % (11.7-14.2); RDW Standard Deviation 47.6 fL (35.1-46.3)
[2025-01-12 04:54] VITALS: BP 129/74
[2025-01-12 05:12] LABS: Alanine Aminotransfer (ALT/SGP 15.0 U/L (12-78); Albumin, Blood 3.2 g/dL (3.4-5.0); Albumin/Globulin Ratio 0.8 (0.8-1.8); Anion Gap 8.0 mmol/L (3-11); Aspartate Aminotrans (AST/SGOT 11.0 U/L (12-37); Bilirubin, Total 0.3 mg/dL (0.1-1.0); Blood Urea Nitrogen 28.0 mg/dL (8-24); CO2, Blood 31.0 mmol/L (21-32); Calcium, Blood 9.3 mg/dL (8.5-10.1); Chloride, Blood 100.0 mmol/L (98-108); Creatinine, Blood 0.9 mg/dL (0.60-1.20); Globulin, Blood 3.9 g/dL (2.2-4.0); Glucose, Blood 169.0 mg/dL (70-99); Potassium, Blood 4.7 mmol/L (3.5-5.5); Sodium, Blood 134.0 mmol/L (136-145); Total Protein, Blood 7.1 g/dL (6.4-8.2)
[2025-01-12 07:40] VITALS: BP 139/92
--- NOTE | 2025-01-12 13:24 | NUR ---
ASSUMED CARE. PT IS AWAKE AND ALERT FORGETFUL. REQUESTING TO GET OUT OF BED NEEDING TO HAVE BM. MAX ASSIST TO GET OUT OF BED, SIT TO STAND WAS USED AND PENNIE WELL. FACE MASK AT 5L 99% AT TRANSFER. PT PLACED BACK ON 3L NC AND IS CURRENTLY 93%. PT VERY CONTENT WITH STAYING UP IN CHAIR FEEDING SELF AND ABLE TO MAKE NEEDS KNOWN. UPDATE REPORT GIVEN TO BELLA NOLASCO AT [facility]. WILL CONT TO MONITOR .
[2025-01-12 15:51] VITALS: BP 135/85
[2025-01-12] MEDS ORDERED: Furosemide 10 MG / ML 2ML Vial IV SCH ×2 (18:00)
[2025-01-12 21:22] VITALS: BP 130/70
--- NOTE | 2025-01-12 21:49 | NUR ---
PT'S HS BG 352. 6U HUMALOG ADMINISTERED ORDERED. CABLE TELEVISION PROGRAM DIRECTOR NOTIFIED. NOTIFIED ON-CALL HOSPITALIST CHIEF RECORDISTPONCHO: NO NEW ORDERS AT THIS TIME.
--- NOTE | 2025-01-13 04:01 | NUR ---
SHIFT SUMMARY NO ACUTE EVENTS DURING THIS SHIFT. ABLE TO TITRATE O2 TO 2.5-3L VIA NASAL CANNULA. CONTINUOUS PULSE OXIMETER >93%. PT DENIES SOB AND PAIN. PT IS 2+ MAX ASSIST WITH [id number] TO THE CHAIR AND COMMODE. LOOSE STOOLS AT HS, SCHEDULED DOCUSATE HELD. PUREWICK DRAINING YELLOW COLOR URINE. STRICT I&O'S. HS BG 352, ON-CALL HOSPITALIST FLYING I INSTRUCTOR. ABDULLAHI NOTIFIED, NO NEW ORDERS. HUMALOG 6U'S ADMINISTERED PER SLIDING SCALE AT HS. BLE EDEMA +2 NOTED. PT IS A/O X2, CONFUSED AND AGITATED WHEN GIVING CARE. REORIENTED UNSUCCESSFULLY. BED ALARM FOR SAFETY. BED AT THE LOWEST POSITION, CALL LIGHT W/I REACH. PT IS ABLE TO MAKE HIS NEEDS KNOWN AND COOPERATIVE WITH CARE.
[2025-01-13 04:40] VITALS: BP 106/78
[2025-01-13 04:40] LABS: BASOPHILS ABSOLUTE AUTO 0.01 K/mm3 (0.00-0.23); BASOPHILS PERCENT AUTO 0 % (0-2); EOSINOPHILS ABSOLUTE AUTO 0.00 K/mm3 (0.00-0.68); EOSINOPHILS PERCENT AUTO 0 % (0-6); Hematocrit 40.3 % (37.0-53.0); Hemoglobin 13.8 g/dL (13.5-17.5); IMMATURE GRAN ABSOLUTE AUTO 0.05 K/mm3 (0.00-0.10); IMMATURE GRAN PERCENT AUTO 0 % (0-1); LYMPHOCYTES ABSOLUTE AUTO 0.72 K/mm3 (0.84-5.20); LYMPHOCYTES PERCENT AUTO 6 % (21-46); MONOCYTES ABSOLUTE AUTO 0.62 K/mm3 (0.16-1.47); MONOCYTES PERCENT AUTO 5 % (4-13); Mean Corpuscular HGB Conc 34.2 g/dL (31.5-36.5); Mean Corpuscular Volume 87 fL (80-100); NEUTROPHILS ABSOLUTE AUTO 11.42 K/mm3 (1.96-9.15); NEUTROPHILS PERCENT AUTO 89 % (41-73); NRBC ABSOLUTE 0.00 K/mm3 (0.00-0.02); NRBC Auto 0.0 /100 WBC (0.0-0.2); Platelet Count 201 K/mm3 (150-400); RDW Coefficient Variation 14.6 % (11.7-14.2); RDW Standard Deviation 45.9 fL (35.1-46.3)
[2025-01-13 05:25] LABS: Alanine Aminotransfer (ALT/SGP 17.0 U/L (12-78); Albumin, Blood 3.3 g/dL (3.4-5.0); Albumin/Globulin Ratio 0.8 (0.8-1.8); Anion Gap 7.0 mmol/L (3-11); Aspartate Aminotrans (AST/SGOT 11.0 U/L (12-37); Bilirubin, Total 0.4 mg/dL (0.1-1.0); Blood Urea Nitrogen 34.0 mg/dL (8-24); CO2, Blood 34.0 mmol/L (21-32); Calcium, Blood 9.5 mg/dL (8.5-10.1); Chloride, Blood 98.0 mmol/L (98-108); Creatinine, Blood 0.99 mg/dL (0.60-1.20); Globulin, Blood 3.9 g/dL (2.2-4.0); Glucose, Blood 163.0 mg/dL (70-99); Potassium, Blood 4.7 mmol/L (3.5-5.5); Sodium, Blood 134.0 mmol/L (136-145); Total Protein, Blood 7.2 g/dL (6.4-8.2)
[2025-01-13 07:50] VITALS: BP 119/86
[2025-01-13] MEDS ORDERED: Albuterol 2.5 MG/3 ML VIAL INH PRN (11:35)
[2025-01-13 13:12] VITALS: BP 109/88
--- NOTE | 2025-01-13 13:52 | NUR ---
ASSUMED CARE. A/O X 2-3 PT ASKING HOW HE ARRIVED HERE AND FOR WHAT. PT DOES NOT REMEMBER ME BUT DOES REMEMBER WHAT WE SPOKE ABOUT. PT WAS TRANSFERED TO CHAIR VIA SIT TO STAND AND PENNIE WELL SATURATION MAINTAINED 97 ON 2L NC. PT HAS NO C/O PAIN NO DISTRESS STATES HE FEELS GOOD.. RESIDENT AT BEDSIDE DOING ASSESSMENT, NO NEW ORDERS OF NOW
[2025-01-13 14:43] VITALS: BP 128/83
[2025-01-13] MEDS ORDERED: Insulin Human Lispro 100 Units/ML 3ML Syringe SC SCH (17:30)
--- NOTE | 2025-01-13 19:16 | NUR ---
NO NEW ORDERS PT UP IN CHAIR WATCHING TV, FSBS WAS 425 AND MD WAS NOTIFIED, PT GIVEN HIS REGULAR HI DOSING. NEW ORDERS REGARDING INSULIN PLACED BY ME. PT ASSISTED TO BATHROOM USING SIT TO STAND. O2 MAINTAINED 95 ON 5 LITER NC AND THEN LOWERED TO 2L NC ONCE BACK TO CHAIR.
[2025-01-13 19:57] VITALS: BP 137/89
--- NOTE | 2025-01-13 20:54 | NUR ---
PT'S HS BG>500 ON GLUCOMETER, @2053 LAB BY THE BEDSIDE DRAWING. WILL ADMINISTER INSULIN ORDERED FOR HS. CHARGE NURSE NOTIFIED.
[2025-01-13 21:30] LABS: Glucose, Blood 498 mg/dL (70-99)
[2025-01-13] MEDS ORDERED: Insulin Glargine-Yfgn 100 Unit/mL 3 ML SYR SC ONE (21:50)
[2025-01-13] MEDS ORDERED: Insulin Human Lispro 100 Units/ML 3ML Syringe SC ONE (21:50)
--- NOTE | 2025-01-14 03:09 | NUR ---
SHIFT SUMMARY AT HS PT'S BG>500. LAB RECHECK [id number]. ONE TIME ORDER OF GLARGINE 25U AND HUMALOG 5U ADMINISTERED. RECHECK @0230, BG 286. (SEE PREVIOUS NOTE). PT IS 2-PERSON ASSIST WITH [id number] TO THE RESTROOM. 2-3 ATTEMPTS TO HAVE BM AT HS, NO BM THIS SHIFT. PUREWICK IN PLACE. O2 5L DURING EXCERTION. 3L VIA HIGH GLOW NASAL CANNULA, O2 SAT'S >93%. BED AT THE LOWEST POSITION, CALL LIGHT W/I REACH. PT IS A/OX2-3, PLEASANT AT HS. PT IS ABLE TO MAKE HIS NEEDS KNOWN AND COOPERATIVE WITH CARE.
[2025-01-14 04:26] VITALS: BP 103/66
[2025-01-14 04:27] LABS: BASOPHILS ABSOLUTE AUTO 0.01 K/mm3 (0.00-0.23); BASOPHILS PERCENT AUTO 0 % (0-2); EOSINOPHILS ABSOLUTE AUTO 0.00 K/mm3 (0.00-0.68); EOSINOPHILS PERCENT AUTO 0 % (0-6); Hematocrit 41.0 % (37.0-53.0); Hemoglobin 14.2 g/dL (13.5-17.5); IMMATURE GRAN ABSOLUTE AUTO 0.04 K/mm3 (0.00-0.10); IMMATURE GRAN PERCENT AUTO 0 % (0-1); LYMPHOCYTES ABSOLUTE AUTO 0.76 K/mm3 (0.84-5.20); LYMPHOCYTES PERCENT AUTO 7 % (21-46); MONOCYTES ABSOLUTE AUTO 0.82 K/mm3 (0.16-1.47); MONOCYTES PERCENT AUTO 8 % (4-13); Mean Corpuscular HGB Conc 34.6 g/dL (31.5-36.5); Mean Corpuscular Volume 85 fL (80-100); NEUTROPHILS ABSOLUTE AUTO 8.98 K/mm3 (1.96-9.15); NEUTROPHILS PERCENT AUTO 85 % (41-73); NRBC ABSOLUTE 0.00 K/mm3 (0.00-0.02); NRBC Auto 0.0 /100 WBC (0.0-0.2); Platelet Count 220 K/mm3 (150-400); RDW Coefficient Variation 14.2 % (11.7-14.2); RDW Standard Deviation 43.9 fL (35.1-46.3)
[2025-01-14 04:52] LABS: Alanine Aminotransfer (ALT/SGP 29.0 U/L (12-78); Albumin, Blood 3.2 g/dL (3.4-5.0); Albumin/Globulin Ratio 0.8 (0.8-1.8); Anion Gap 8.0 mmol/L (3-11); Aspartate Aminotrans (AST/SGOT 21.0 U/L (12-37); Bilirubin, Total 0.3 mg/dL (0.1-1.0); Blood Urea Nitrogen 37.0 mg/dL (8-24); CO2, Blood 36.0 mmol/L (21-32); Calcium, Blood 8.9 mg/dL (8.5-10.1); Chloride, Blood 93.0 mmol/L (98-108); Creatinine, Blood 0.93 mg/dL (0.60-1.20); Globulin, Blood 4.2 g/dL (2.2-4.0); Glucose, Blood 298.0 mg/dL (70-99); Potassium, Blood 4.6 mmol/L (3.5-5.5); Sodium, Blood 132.0 mmol/L (136-145); Total Protein, Blood 7.4 g/dL (6.4-8.2)
[2025-01-14 07:19] VITALS: BP 121/82
[2025-01-14] MEDS ORDERED: Insulin Human Lispro 100 Units/ML 3ML Syringe SC SCH ×2 (07:30→08:30)
[2025-01-14] MEDS ORDERED: Insulin Glargine-Yfgn 100 Unit/mL 3 ML SYR SC SCH ×2 (09:00)
[2025-01-14] MEDS ORDERED: Polyethylene Glycol 3350 17 gm PO ONE (11:00)
--- NOTE | 2025-01-14 14:37 | NUR ---
ASSUMED CARE. A/O X 2- 3 FORGET FULL AND A LITTLE DEMANDING. PT HAS BEEN COOP[ERATIVE WITH CARE. FSBS 247 AND WAS COVERED. PT UP IN CHAIR WATCHING TV NO S/S OF DISTRESS NO C/O PAIN, PURWIC DRAINING CLR YELLOW.
[2025-01-14 16:55] VITALS: BP 128/79
--- NOTE | 2025-01-14 17:49 | NUR ---
PT UP IN CHAIR DOING WELL NO CHANGE IN CONDITION. ASSISTED TO BATHROOM USING SIT TO STAND, PENNIE WELL AND WAS ABLE TO HAVE A BM. SO FAR HAS BEEN CALLING APPROPRIATLY. FSBS 350 AND HAS BEEN COVERED VIA SCALE.
[2025-01-14 19:33] VITALS: BP 131/76
--- NOTE | 2025-01-14 20:43 | NUR ---
HS BG 477, INSULIN ADMIN ORDERED. THIS RESOURCE MANAGEMENT SPECIALIST NOTIFIED NP. FERNANDO, ON-CALL HOSPITALIST, NO NEW ORDERS AT THIS TIME. CHARGE NURSE NOTIFIED.
--- NOTE | 2025-01-15 04:15 | NUR ---
SHIFT SUMMARY PT'S HS BG 477. INSULIN ADMINISTERED ORDERED. ON-CALL HOSPITALIST NOTIFIED (SEE PREVIOUS NOTE). PUREWICK DRAINING LIGHT YELLOW COLOR URINE. PRN TYLENOL AT HS FOR C/O LEFT SHOULDER (CHRONIC) PAIN. O2 @2.5L DURING REST, O2 SAT'S>93%. PT DENIES SOB AT HS. PT RESTING WELL T/O THE NIGHT HRS. BED AT THE LOWEST POSITION, CALL LIGHT W/I REACH. PT IS A/OX2-3, CONFUSED, ABLE TO MAKE HIS NEEDS KNOWN.
[2025-01-15 05:01] LABS: Hematocrit 42.5 % (37.0-53.0); Hemoglobin 14.6 g/dL (13.5-17.5); Mean Corpuscular HGB Conc 34.4 g/dL (31.5-36.5); Mean Corpuscular Volume 87 fL (80-100); NRBC ABSOLUTE 0.00 K/mm3 (0.00-0.02); NRBC Auto 0.0 /100 WBC (0.0-0.2); Platelet Count 214 K/mm3 (150-400); RDW Coefficient Variation 14.1 % (11.7-14.2); RDW Standard Deviation 44.7 fL (35.1-46.3)
[2025-01-15 05:26] LABS: Anion Gap 5.0 mmol/L (3-11); Blood Urea Nitrogen 46.0 mg/dL (8-24); CO2, Blood 37.0 mmol/L (21-32); Calcium, Blood 8.8 mg/dL (8.5-10.1); Chloride, Blood 94.0 mmol/L (98-108); Creatinine, Blood 0.95 mg/dL (0.60-1.20); Glucose, Blood 239.0 mg/dL (70-99); Potassium, Blood 3.8 mmol/L (3.5-5.5); Sodium, Blood 132.0 mmol/L (136-145)
[2025-01-15 07:20] VITALS: BP 114/73
[2025-01-15] MEDS ORDERED: Polyethylene Glycol 3350 17 gm PO PRN (09:00)
[2025-01-15] MEDS ORDERED: Insulin Glargine-Yfgn 100 Unit/mL 3 ML SYR SC ONE (12:10)
--- NOTE | 2025-01-15 14:29 | NUR ---
ASSUMED CARE OF PT PT DOING WELL TODAY VSS O2 ON 2L 96% REQUESTED TO GET OUT OF BED AND TO CHAIR. SIT TO STAND USED PT IS MAX ASSIST. FSBS MORE CONTROLLED AND PT WAS COVERED WITH INSULIN SLIDING SCALE. BREAKFAST GIVEN, PT ABLE TO FEED SELF. MD INTO SEE PT, TODAY WILL PUSH AND ENC PT TO HAVE BM AND TAKE STOOL OFTENERS
[2025-01-15 16:39] VITALS: BP 122/70
[2025-01-15 18:22] LABS: Glucose, Blood 571 mg/dL (70-99)
--- NOTE | 2025-01-15 19:08 | NUR ---
PT CONTINUE TO BE UP IN CHAIR HAS HAD MORE THAN 6 TRIPS TO REST ROOM FOR BOWEL MOVEMENT, MOST BOWEL MOVENENTS HAVE BEEN GAS AND LOOSE STOOL, PT DOESNT C/O PAIN NOR DOES HE HAVE ANY DISTRESS. HE HAS CALL LIGHT AT HIS SIDE AND IS CONSTANTLY REQUESTING FOOD. SPOKE WITH PT ABOUT DIET AND WHAT HE SHOULD AND SHOULDNT BE EATING AT THIS TIME. PT DOESNT SEEM TO CARE AND WANTS ICE CREAM. SUGAR FREE JELLO GIVEN, ALONG WITH CHEESE AND ROAST BEEF, PT WAS FINE WITH THAT.
--- NOTE | 2025-01-15 19:13 | NUR ---
1730 FSBS WAS >500 AND LAB DRAW WAS DONE. DR LATIF WAS NOTIFIED AND IS WAITING FOR REPEAT TEST. 1740 20UNITS INSULIN GIVEN. RECHECK AT 1810 WAS ALSO >[address] D[address] LATIF NOTIFIED AWAITING NEW ORDERS. PT IS A/O VSS DEMANDING JUICE AND ADDITIONAL SNACK EVEN AFTER DINNER WAS EATEN. WILL CONT TO MONITOR
[2025-01-15 19:25] VITALS: BP 119/79
[2025-01-15] MEDS ORDERED: Insulin Human Lispro 100 Units/ML 3ML Syringe SC ONE ×2 (20:25→22:30)
--- NOTE | 2025-01-15 20:53 | NUR ---
PT HS CBG 475. HOSPITALIST ON UNIT AND NOTIFIED. ORDERS GIVEN FOR 9 UNITS SHORT ACTING INSULIN WITH 6 PER SLIDING SCALE AND 3 ADDITIONAL UNITS FOR COVERAGE WELL AND SCEDULED 40 UNITS LONG ACTING GLARGINE, AND TO RECHECK CBG IN ONE HOUR AND TO NOTIFY HOSPITALIST OF RESULTS.
[2025-01-15] MEDS ORDERED: Insulin Glargine-Yfgn 100 Unit/mL 3 ML SYR SC SCH (21:00)
[2025-01-15] MEDS ORDERED: Insulin Human Lispro 100 Units/ML 3ML Syringe SC SCH (21:00)
--- NOTE | 2025-01-15 21:53 | NUR ---
BLOOD GLUCOSE RECHECK POST 1 HOUR INSULIN FLAGGED >500 POC. HOSPITALIST NOTIFIED AND STAT BMP ORDERED TO R/O DKA.
[2025-01-15 22:11] LABS: Anion Gap 11.0 mmol/L (3-11); Blood Urea Nitrogen 57.0 mg/dL (8-24); CO2, Blood 33.0 mmol/L (21-32); Calcium, Blood 8.7 mg/dL (8.5-10.1); Chloride, Blood 88.0 mmol/L (98-108); Creatinine, Blood 1.15 mg/dL (0.60-1.20); Glucose, Blood 440.0 mg/dL (70-99); Potassium, Blood 3.5 mmol/L (3.5-5.5); Sodium, Blood 128.0 mmol/L (136-145)
--- NOTE | 2025-01-15 22:27 | NUR ---
HOSPITALIST NOTIFIED OF BMP RESULTS AND SERUM GLUCOSE 440. ORDER GIVEN FOR 5 UNITS HUMALOG X 1 FOR NON SS COVERAGE.
--- NOTE | 2025-01-16 00:28 | NUR ---
PT SPOT CHECK CBG 358. HOSPITALIST NOTIFIED THAT PT HAS RECEIVED 14 UNITS SHORT ACTING INSULIN ALONG WITH 40 UNITS LONG ACTING SINCE BEGINNING OF SHIFT. NO ADDITIONAL INSULIN AT THIS TIME AND TO WAIT FOR AM CMP FOR CONTINUED DOWNWARD TREND AND TO LET GLARGINE CONTINUE TO TAKE EFFECT.
[2025-01-16 02:15] VITALS: BP 118/62
[2025-01-16 05:05] LABS: BASOPHILS ABSOLUTE AUTO 0.05 K/mm3 (0.00-0.23); BASOPHILS PERCENT AUTO 0 % (0-2); EOSINOPHILS ABSOLUTE AUTO 0.26 K/mm3 (0.00-0.68); EOSINOPHILS PERCENT AUTO 2 % (0-6); Hematocrit 43.0 % (37.0-53.0); Hemoglobin 14.8 g/dL (13.5-17.5); IMMATURE GRAN ABSOLUTE AUTO 0.22 K/mm3 (0.00-0.10); IMMATURE GRAN PERCENT AUTO 2 % (0-1); LYMPHOCYTES ABSOLUTE AUTO 2.01 K/mm3 (0.84-5.20); LYMPHOCYTES PERCENT AUTO 16 % (21-46); MONOCYTES ABSOLUTE AUTO 1.37 K/mm3 (0.16-1.47); MONOCYTES PERCENT AUTO 11 % (4-13); Mean Corpuscular HGB Conc 34.4 g/dL (31.5-36.5); Mean Corpuscular Volume 85 fL (80-100); NEUTROPHILS ABSOLUTE AUTO 8.95 K/mm3 (1.96-9.15); NEUTROPHILS PERCENT AUTO 70 % (41-73); NRBC ABSOLUTE 0.00 K/mm3 (0.00-0.02); NRBC Auto 0.0 /100 WBC (0.0-0.2); Platelet Count 237 K/mm3 (150-400); RDW Coefficient Variation 14.1 % (11.7-14.2); RDW Standard Deviation 43.4 fL (35.1-46.3)
[2025-01-16 05:32] LABS: Alanine Aminotransfer (ALT/SGP 34.0 U/L (12-78); Albumin, Blood 2.9 g/dL (3.4-5.0); Albumin/Globulin Ratio 0.8 (0.8-1.8); Anion Gap 7.0 mmol/L (3-11); Aspartate Aminotrans (AST/SGOT 15.0 U/L (12-37); Bilirubin, Total 0.3 mg/dL (0.1-1.0); Blood Urea Nitrogen 46.0 mg/dL (8-24); CO2, Blood 37.0 mmol/L (21-32); Calcium, Blood 8.2 mg/dL (8.5-10.1); Chloride, Blood 91.0 mmol/L (98-108); Creatinine, Blood 1.12 mg/dL (0.60-1.20); Globulin, Blood 3.7 g/dL (2.2-4.0); Glucose, Blood 228.0 mg/dL (70-99); Potassium, Blood 3.5 mmol/L (3.5-5.5); Sodium, Blood 131.0 mmol/L (136-145); Total Protein, Blood 6.6 g/dL (6.4-8.2)
--- NOTE | 2025-01-16 05:40 | NUR ---
SHIFT SUMMARY NOC PT A/O X 3, BUT CONFUSED AND FORGETFUL AT TIMES WITH POOR SHORT TERM MEMORY. PT WILL REPEAT SELF FREQUENTLY WHEN WANTING SPECIFIC THINGS. PT HS CBG 475 WITH ADDITIONAL 3 UNITS HUMALOG GIVEN ALONG WITH SLIDING SCALE OF 6 UNITS AND 40 UNITS SCHEDULED GLARGINE. UPON RECHECK 1 HOUR LATER CG 440 AND ADDITIONAL 5 UNITS HUMALOG GIVEN AND UPON SPOT CHECK AT MIDNIGHT CBG 358. HOSPITALIST NOTIFIED AND NO ADDITIONAL COVERAGE ORDERED DUE TO TRENDING DOWN AND WILL MONITOR AM CMP AND PT FOR S/S OF HYPERGLYCEMIA/HYPOGLYCEMIA. AM SERUM GLUCOSE 228. PT HAS PUREWICK IN PLACE FOR INCONTINENCE. ON 3L/NC SPO2 >92% ON BIOX. PT CURRENTLY RESTING WITH BED ALARM ON, BED IN LOWEST POSITION, AND CALL LIGHT WITHIN REACH.
[2025-01-16 07:50] VITALS: BP 114/76
[2025-01-16] MEDS ORDERED: HUMALOG KW100 UNIT/1 SC (14:55)
[2025-01-16] MEDS ORDERED: ALBU90OI INH (14:59)
[2025-01-16] MEDS ORDERED: FURO20 PO (15:00)
[2025-01-16] MEDS ORDERED: ELIQUIS5 M2 PO (15:00)
[2025-01-16] MEDS ORDERED: Deltasone 10 mg10 MG PO (15:02)
[2025-01-16] MEDS ORDERED: Prednisone10 MG PO (15:02)
[2025-01-16 15:29] VITALS: BP 122/76
--- NOTE | 2025-01-16 15:30 | NUR ---
RN CONTACTED PROVIDER KRISH DUE TO ORDERS FOR PT TO DISCHARGE BACK TO FACILITY [facility] BLOOD SUGARS REMAIN ELEVATED IN AFTERNOONS. KRISH REPORTS AFTER DISCUSSING WITH PROVIDER TEAM PT SAFE TO DISCHARGE BACK TO [facility] FOR DIABETIC MANAGEMENT. PLAN FOR PT TO DISCHARGE TO [facility] @ 1700.
--- NOTE | 2025-01-16 15:54 | NUR ---
RN CALLED REPORT TO FACILITY RN, JONELLE @ 2340.
--- NOTE | 2025-01-16 17:51 | NUR ---
PT DISCHARGED BACK TO [facility]. RN COMPLETED VERBAL REPORT TO CONSTANCE SAL AT FACILITY. BILATERAL PIV REMOVED AND SITES WNL. PUREWICK REMOVED. USING SIT TO STAND PT PLACED IN WHEELCHAIR AND TAKEN TO FACILTY BY MEDICAL TRANSPORT. TRANSFER PACKET AND FACE SHEET PROVIDED TO CLASSROOM PARAPROFESSIONAL.
== END 2025-01-16 17:08 | DRG 196 ==
LOC: ER 22:59 → MEDS 01-10 04:21 → PCU 01-10 04:21 → MEDS 01-11 16:13
PROVIDERS: Emergency Medicine; Hospitalist; ADMIT Student in an Organized Health Care Education/Training Program
DX: J84.9 Interstitial pulmonary disease, unspecified (principal); J96.21 Acute and chronic respiratory failure with hypoxia; J96.22 Acute and chronic respiratory failure with hypercapnia; J44.1 Chronic obstructive pulmonary disease with (acute) exacerbation; I82.511 Chronic embolism and thrombosis of right femoral vein; I82.531 Chronic embolism and thrombosis of right popliteal vein; E03.9 Hypothyroidism, unspecified; E11.42 Type 2 diabetes mellitus with diabetic polyneuropathy; E78.5 Hyperlipidemia, unspecified; I44.0 Atrioventricular block, first degree; I10 Essential (primary) hypertension; M17.0 Bilateral primary osteoarthritis of knee; E11.65 Type 2 diabetes mellitus with hyperglycemia; K59.00 Constipation, unspecified; Z79.890 Hormone replacement therapy; Z79.899 Other long term (current) drug therapy; Z79.2 Long term (current) use of antibiotics; Z79.4 Long term (current) use of insulin; Z79.84 Long term (current) use of oral hypoglycemic drugs; Z79.52 Long term (current) use of systemic steroids; Z86.711 Personal history of pulmonary embolism; Z98.1 Arthrodesis status; Z87.891 Personal history of nicotine dependence; Z98.42 Cataract extraction status, left eye; Z98.41 Cataract extraction status, right eye; Z86.16 Personal history of COVID-19
CPT/HCPCS: 0202U; 36415; 71045; 71260; 80048; 80053; 82803; 82947; 83880; 84145; 84484; 85025; 85027; 85379; 85520; 85610; 85730; 87449; 87637; 93005; 93010; 93971; 94640; 94664; 94762; 96365-59; 96366; 96375; 99285-25; A9270; J0456; J1644; J1815; J1938; J2919; J7050; J7512; Q9967

== ENCOUNTER 2025-02-12 15:46 | Inpatient (IN) | payer OTHER ==
[~2025-02-12] VITALS: Ht 165.1 cm; Wt 91.5 kg
[~2025-02-12 15:46] MED LIST changes: +Deltasone 10 mg10 MG PO; +ELIQUIS5 M2 PO; +FURO20 PO; +Fenofibrate54 MG PO; +HUMALOG KW100 UNIT/1 SC; +INSULIN AS100 UNIT/6 SC; +Prednisone10 MG PO
[2025-02-12] MEDS ORDERED: Ipratropium/Albuterol SulF 2.5-0.5MG/3 ML Amp INH PRN (16:00)
[2025-02-12 16:07] LABS: BASOPHILS ABSOLUTE AUTO 0.06 K/mm3 (0.00-0.23); BASOPHILS PERCENT AUTO 1 % (0-2); EOSINOPHILS ABSOLUTE AUTO 0.23 K/mm3 (0.00-0.68); EOSINOPHILS PERCENT AUTO 3 % (0-6); Hematocrit 47.7 % (37.0-53.0); Hemoglobin 15.7 g/dL (13.5-17.5); IMMATURE GRAN ABSOLUTE AUTO 0.07 K/mm3 (0.00-0.10); IMMATURE GRAN PERCENT AUTO 1 % (0-1); LYMPHOCYTES ABSOLUTE AUTO 2.04 K/mm3 (0.84-5.20); LYMPHOCYTES PERCENT AUTO 24 % (21-46); MONOCYTES ABSOLUTE AUTO 0.63 K/mm3 (0.16-1.47); MONOCYTES PERCENT AUTO 8 % (4-13); Mean Corpuscular HGB Conc 32.9 g/dL (31.5-36.5); Mean Corpuscular Volume 88 fL (80-100); NEUTROPHILS ABSOLUTE AUTO 5.40 K/mm3 (1.96-9.15); NEUTROPHILS PERCENT AUTO 64 % (41-73); NRBC ABSOLUTE 0.00 K/mm3 (0.00-0.02); NRBC Auto 0.0 /100 WBC (0.0-0.2); Platelet Count 248 K/mm3 (150-400); RDW Coefficient Variation 15.0 % (11.7-14.2); RDW Standard Deviation 48.1 fL (35.1-46.3)
[2025-02-12 16:11] LABS: pH Blood Venous 7.40 (7.34-7.37)
[2025-02-12] MEDS ORDERED: Mag Sulfate 1 GM/D5% 100ML 100 ML IV ONE (16:20)
[2025-02-12] MEDS ORDERED: Ipratropium/Albuterol SulF 2.5-0.5MG/3 ML Amp INH ONE (16:20)
[2025-02-12 16:29] LABS: Alanine Aminotransfer (ALT/SGP 22.0 U/L (12-78); Albumin, Blood 3.4 g/dL (3.4-5.0); Albumin/Globulin Ratio 0.8 (0.8-1.8); Anion Gap 9.0 mmol/L (3-11); Aspartate Aminotrans (AST/SGOT 29.0 U/L (12-37); Bilirubin, Total 0.4 mg/dL (0.1-1.0); Blood Urea Nitrogen 29.0 mg/dL (8-24); CO2, Blood 32.0 mmol/L (21-32); Calcium, Blood 8.7 mg/dL (8.5-10.1); Chloride, Blood 96.0 mmol/L (98-108); Creatinine, Blood 1.47 mg/dL (0.60-1.20); Globulin, Blood 4.1 g/dL (2.2-4.0); Glucose, Blood 416.0 mg/dL (70-99); Potassium, Blood 3.8 mmol/L (3.5-5.5); Sodium, Blood 133.0 mmol/L (136-145); Total Protein, Blood 7.5 g/dL (6.4-8.2)
[2025-02-12 17:08] LABS: Influenza A, PCR NEGATIVE (NEGATIVE); Influenza B, PCR NEGATIVE (NEGATIVE); Resp Syncytial Virus, PCR NEGATIVE (NEGATIVE); SARS-Cov-2 (COVID-19) PCR, MMC NEGATIVE (NEGATIVE)
[2025-02-12] MEDS ORDERED: Albuterol 2.5 MG/3 ML VIAL INH SCH (17:10)
[2025-02-12] MEDS ORDERED: Albuterol 2.5 MG/3 ML VIAL INH PRN (18:30)
[2025-02-12] MEDS ORDERED: NS 1,000 ML IV SCH (18:30)
[2025-02-12] MEDS ORDERED: Ipratropium/Albuterol SulF 2.5-0.5MG/3 ML Amp INH SCH (18:35)
[2025-02-12] MEDS ORDERED: Insulin Human Lispro 100 Units/ML 3ML Syringe SC SCH (21:00)
[2025-02-12] MEDS ORDERED: Insulin Glargine-Yfgn 100 Unit/mL 3 ML SYR SC SCH (21:00)
[2025-02-12] MEDS ORDERED: Insulin Glargine,Hum.Rec.Anlog 100 UNIT/ML 3MLSYR SC SCH (22:36)
[2025-02-13] MEDS ORDERED: Ondansetron HCl 2 MG / ML 2ML Vial IV PRN (00:05)
[2025-02-13 05:38] LABS: Hematocrit 44.1 % (37.0-53.0); Hemoglobin 14.8 g/dL (13.5-17.5); Mean Corpuscular HGB Conc 33.6 g/dL (31.5-36.5); Mean Corpuscular Volume 87 fL (80-100); NRBC ABSOLUTE 0.00 K/mm3 (0.00-0.02); NRBC Auto 0.0 /100 WBC (0.0-0.2); Platelet Count 234 K/mm3 (150-400); RDW Coefficient Variation 15.2 % (11.7-14.2); RDW Standard Deviation 47.8 fL (35.1-46.3)
[2025-02-13 06:06] LABS: Alanine Aminotransfer (ALT/SGP 17.0 U/L (12-78); Albumin, Blood 3.3 g/dL (3.4-5.0); Albumin/Globulin Ratio 0.8 (0.8-1.8); Anion Gap 15.0 mmol/L (3-11); Aspartate Aminotrans (AST/SGOT 23.0 U/L (12-37); Bilirubin, Total 0.4 mg/dL (0.1-1.0); Blood Urea Nitrogen 31.0 mg/dL (8-24); CO2, Blood 26.0 mmol/L (21-32); Calcium, Blood 8.8 mg/dL (8.5-10.1); Chloride, Blood 98.0 mmol/L (98-108); Creatinine, Blood 1.23 mg/dL (0.60-1.20); Globulin, Blood 4.0 g/dL (2.2-4.0); Glucose, Blood 348.0 mg/dL (70-99); Potassium, Blood 4.2 mmol/L (3.5-5.5); Sodium, Blood 135.0 mmol/L (136-145); Total Protein, Blood 7.3 g/dL (6.4-8.2)
[2025-02-13 09:10] VITALS: BP 118/78
[2025-02-13] MEDS ORDERED: Insulin Human Lispro 100 Units/ML 3ML Syringe SC ONE (11:00)
[2025-02-13 11:24] VITALS: BP 137/82
--- NOTE | 2025-02-13 14:32 | NUR ---
ADMIT NOTE PT A&OX4. PT ADMITTED DUE TO COPD EXAC. PT CAME AT 0915. REFRIGERATOR REPAIRMAN GAVE THIS RN REPORT. PT ON 4L OF O2 THIS AM SPO2 90%. PERWICK IN PLACE. USED SLIDER SHEET FOR TRANSFER FROM ER BED. PT REPORTS "USES WHEELCHAIR AT BASELINE." PT ON TELE, TELE REPORTS NSR AT 83. FOR LUNCH PT BLOOD SUGAR ELAVATED, ORDERED NOW INSULIN, INSULIN GIVEN BY BREAK RN. PT ORIENTED TO UNIT/FALL PRECAUTIONS/CALL LIGHT. PT IN BED, BED IN LOWEST POSITION, CALL LIGHT IN REACH.
[2025-02-13 15:30] VITALS: BP 110/71
[2025-02-13] MEDS ORDERED: Insulin Human Lispro 100 Units/ML 3ML Syringe SC SCH ×3 (16:30→21:00)
--- NOTE | 2025-02-13 20:03 | NUR ---
SHIFT SUMMARY PT A&OX3, DOES NOT KNOW DATE. PT HAS HX OF DEMENTIA PER DAUGHTER REPORT. PT CONFUSED AT TIMES. PT REPORTS NO CHEST PAIN/GEN DISCOMFORT, PT ADMITTED DUE TO COPD EXACERBATION. PT ON TELE, NO TELE REPORTS. PERWICK IN PLACE. PT CONT OF URINE AND BM. PT IS A LIFT PT. THIS RN CALLED [facility] TO [facility]IVE UPDATED MED LIST, [facility] FAXED OVER MED LIST, MED LIST IN CHART, NIGHT RN NOTIFIED NOT COMPLETE. DAUGHTER CAME TO SEE PT TODAY. PT IS ACHS BLOOD SUGAR. DR. NEWBY NOTIFIED PT BLOOD SUGAR AT DINNER WAS 351. PT GOT 15 UNITS SHORT ACTING, DR. ARIZA. CONT PULSE OX ON. VSS. PT ON 7L O2 VIA N/C MAINTAINS 91%. CPAP WAS PLACED ON PT TODAY FOR SOB, PT PULLED OFF CPAP AND N/C WAS PLACED FOR OXYGEN REQUIREMENTS. RESPIRATORY CARE INVOLVED. GIVES NEB TREATMENTS TO PT. PT GETS IV STEROIDS. PT IN BED, BED IN LOWEST POSITION CALL LIGHT IN REACH.
[2025-02-13 20:18] VITALS: BP 124/83
[2025-02-13 21:58] VITALS: BP 127/84
--- NOTE | 2025-02-13 22:12 | NUR ---
NOTIFIED BY DIGITAL MARKETING ASSOCIATE THAT PT WAS HAVING ST CHANGES. PT ASSESSED AND NO C/O OF CP, PALIPITATIONS, ENDORSES SOB, BUT ADMITTED FOR COPD EXCACERBATION. OIL AND GAS DRAFTER RESDIDENT NOTIFIED AND EKG DONE SHOWED QTC PROLONGATION. DONALD RILEY.
--- NOTE | 2025-02-14 04:57 | NUR ---
SHIFT SUMMARY NOC PT A/O X 3. FORGETFUL AND CONFUSED AT TIMES. VSS. HS CBG 287 WITH 2 UNITS HUMALOG PER SLIDING SCALE AND 40 UNITS GLARGINE SCHEDULED GIVEN. PT HAS PUREWICK IN PLACE FOR INCONTINENCE WITH GOOD OUTPUT. IV SOLU MED PER EMAR. PT HAD SOME ST CHANGES AT BEGINNING OF SHIFT, BUT PT HAD NO C/O OF CP/PALPITATIONS. SOB IS BASELINE. HOSPITALIST NOTIFIED AND EKG DONE WHICH SHOWED QTC PROLONGATION, AND IV ZOFRAN DISCONTINUED. PT CURRENTLY RESTING WITH BED ALARM ON, BED IN LOWEST POSITION, AND CALL LIGHT WITHIN REACH.
[2025-02-14 05:11] VITALS: BP 138/91
[2025-02-14 05:33] LABS: BASOPHILS ABSOLUTE AUTO 0.02 K/mm3 (0.00-0.23); BASOPHILS PERCENT AUTO 0 % (0-2); EOSINOPHILS ABSOLUTE AUTO 0.00 K/mm3 (0.00-0.68); EOSINOPHILS PERCENT AUTO 0 % (0-6); Hematocrit 41.7 % (37.0-53.0); Hemoglobin 14.1 g/dL (13.5-17.5); IMMATURE GRAN ABSOLUTE AUTO 0.09 K/mm3 (0.00-0.10); IMMATURE GRAN PERCENT AUTO 1 % (0-1); LYMPHOCYTES ABSOLUTE AUTO 0.80 K/mm3 (0.84-5.20); LYMPHOCYTES PERCENT AUTO 6 % (21-46); MONOCYTES ABSOLUTE AUTO 0.69 K/mm3 (0.16-1.47); MONOCYTES PERCENT AUTO 5 % (4-13); Mean Corpuscular HGB Conc 33.8 g/dL (31.5-36.5); Mean Corpuscular Volume 88 fL (80-100); NEUTROPHILS ABSOLUTE AUTO 12.86 K/mm3 (1.96-9.15); NEUTROPHILS PERCENT AUTO 89 % (41-73); NRBC ABSOLUTE 0.00 K/mm3 (0.00-0.02); NRBC Auto 0.0 /100 WBC (0.0-0.2); Platelet Count 236 K/mm3 (150-400); RDW Coefficient Variation 15.0 % (11.7-14.2); RDW Standard Deviation 47.9 fL (35.1-46.3)
[2025-02-14 06:04] LABS: Alanine Aminotransfer (ALT/SGP 17.0 U/L (12-78); Albumin, Blood 3.3 g/dL (3.4-5.0); Albumin/Globulin Ratio 0.9 (0.8-1.8); Anion Gap 8.0 mmol/L (3-11); Aspartate Aminotrans (AST/SGOT 14.0 U/L (12-37); Bilirubin, Total 0.3 mg/dL (0.1-1.0); Blood Urea Nitrogen 39.0 mg/dL (8-24); CO2, Blood 31.0 mmol/L (21-32); Calcium, Blood 9.3 mg/dL (8.5-10.1); Chloride, Blood 102.0 mmol/L (98-108); Creatinine, Blood 1.2 mg/dL (0.60-1.20); Globulin, Blood 3.7 g/dL (2.2-4.0); Glucose, Blood 119.0 mg/dL (70-99); Potassium, Blood 4.2 mmol/L (3.5-5.5); Sodium, Blood 137.0 mmol/L (136-145); Total Protein, Blood 7.0 g/dL (6.4-8.2)
[2025-02-14 07:36] VITALS: BP 126/71
[2025-02-14 11:26] VITALS: BP 133/77
[2025-02-14 15:51] VITALS: BP 151/90
--- NOTE | 2025-02-14 17:58 | NUR ---
CALLED DR POOL AND NOTIFIED HER OF HIGH BLOOD SUGAR ACD 386- INFORMED OF COVERAGE AND TOLD TO RECHECK BLOOD SUGAR HS PER ROUTINE AND COVER ON HIGH SS ORDERED
--- NOTE | 2025-02-14 20:10 | NUR ---
SUMMARY- PT A/O X3-4, FORGETFUL, FREQ CALL LIGHTS AND FORGETS WHY HE IS CALLING BUT KNOWS LIMITS AND NEVER TRIED TO GET OOB. PT HAD PHYSICAL TX ORDERED BUT WAS NOT EVALUATED TODAY. PT SAT AT EDGE OF BED AFTER BREAKFAST THROUGH LUNCH AND ENJOYED THE TRIPOD POSITION OVER TABLE. LUNGS HAVE CRACKLES LOWER HALF BIBASILAR. STATES NO COUGH, NO COUGH NOTED BY RN. PT HAS HIGH FLOW O2 FROM 7L DOWN TO 5L TODAY. STATES BREATHING EASIRE TODAY THAN YESTERDAY. MENTIONED CRACKLES TO DR NASSAR AND THAT LASIX NOT BEING ADMIN. 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 PT HAS MIN LE EDEMA +1, AND HAS BLE NEUROPATHY. MEDICATED WITH TYLENOL PM FOR HEADACHE WITH PARTIAL RELIEF. PT USING PUREWICK HE IS INCONT OF URINE. HAS NOT HAD A BM IN A NUMBER OF DAYS, STARTED ON [place]. BLOOD SUGARS HAVE BEEN CLIMBING- COVERED WITH 5U NOVOLOG WITH MEALS PLUS HIGH SS. CONT TELE SR 90'S WITH BBB. REPORTED TO NAN ENNIS RN.
[2025-02-14 20:28] VITALS: BP 95/62
--- NOTE | 2025-02-14 21:44 | NUR ---
SBAR given to night provider for CBG 373. no new orders.
[2025-02-14 23:28] VITALS: BP 77/54
[2025-02-15] VITALS (7 sets, daily range): BP systolic 93–134; BP diastolic 57–85
[2025-02-15] MEDS ORDERED: NS 500 ML IV ONE (01:20)
--- NOTE | 2025-02-15 01:46 | NUR ---
SBAR given to night provider for SBPs less than 100. he gave T.O. for NS 500ml bolus x1.
--- NOTE | 2025-02-15 05:43 | NUR ---
SHIFT SUMMARY: Pt admitted for COPD exacerbation and is a full code. Is alert and able to make needs known. ADLs have been 1-2 depending on activity but did not get out of bed. Denies pain or discomfort when asked. Telly noted sinus in the 80s with a bundle branch and no events.
[2025-02-15 05:49] LABS: BASOPHILS ABSOLUTE AUTO 0.01 K/mm3 (0.00-0.23); BASOPHILS PERCENT AUTO 0 % (0-2); EOSINOPHILS ABSOLUTE AUTO 0.00 K/mm3 (0.00-0.68); EOSINOPHILS PERCENT AUTO 0 % (0-6); Hematocrit 38.1 % (37.0-53.0); Hemoglobin 13.0 g/dL (13.5-17.5); IMMATURE GRAN ABSOLUTE AUTO 0.12 K/mm3 (0.00-0.10); IMMATURE GRAN PERCENT AUTO 1 % (0-1); LYMPHOCYTES ABSOLUTE AUTO 0.70 K/mm3 (0.84-5.20); LYMPHOCYTES PERCENT AUTO 5 % (21-46); MONOCYTES ABSOLUTE AUTO 0.55 K/mm3 (0.16-1.47); MONOCYTES PERCENT AUTO 4 % (4-13); Mean Corpuscular HGB Conc 34.1 g/dL (31.5-36.5); Mean Corpuscular Volume 87 fL (80-100); NEUTROPHILS ABSOLUTE AUTO 11.51 K/mm3 (1.96-9.15); NEUTROPHILS PERCENT AUTO 89 % (41-73); NRBC ABSOLUTE 0.00 K/mm3 (0.00-0.02); NRBC Auto 0.0 /100 WBC (0.0-0.2); Platelet Count 210 K/mm3 (150-400); RDW Coefficient Variation 15.0 % (11.7-14.2); RDW Standard Deviation 47.6 fL (35.1-46.3)
[2025-02-15 06:52] LABS: Anion Gap 7.0 mmol/L (3-11); Blood Urea Nitrogen 37.0 mg/dL (8-24); CO2, Blood 32.0 mmol/L (21-32); Calcium, Blood 8.8 mg/dL (8.5-10.1); Chloride, Blood 103.0 mmol/L (98-108); Creatinine, Blood 1.01 mg/dL (0.60-1.20); Glucose, Blood 151.0 mg/dL (70-99); Potassium, Blood 4.3 mmol/L (3.5-5.5); Sodium, Blood 138.0 mmol/L (136-145)
--- NOTE | 2025-02-15 18:16 | NUR ---
SHIFT SUMMARY PATIENT A/OX3, ABLE TO MAKE NEEDS KNOWN. INTERMITTENTLY CONFUSED, FORGETFUL, COOPERATIVE WITH CARE. CALLS OUT FREQUENTLY DESPITE CALL LIGHT USE. BLOOD SUGARS HAVE BEEN ELEVATED THROUGHOUT THE EVENING. CBNG IN 390s PRIOR TO DINNER. DR. NASSAR NOTIFIED, NO NEW ORDERS AT THAT TIME. TELEMETRY DISCONTINUED THIS AFTERNOON. PATIENT COMPLAINING OF HEADACHE THIS MORNING, PRN TYLENOL ADMINISTERED AND EFFECTVIE. PATIENT PARTICIPATED IN PHYSICAL THERAPY AND ABLET O USE SIT TO STAND LIFT FOR TRANSFER 2 PERSON ASSIST. PATIENT CURRENTLY IN RECLINER. PUREWICK IN PLACE. NO OTHER CONCERNS AT THIS TIME, WILL CONTINUE TO MONITOR.
[2025-02-16 04:32] VITALS: BP 101/65
[2025-02-16 04:53] LABS: BASOPHILS ABSOLUTE AUTO 0.02 K/mm3 (0.00-0.23); BASOPHILS PERCENT AUTO 0 % (0-2); EOSINOPHILS ABSOLUTE AUTO 0.00 K/mm3 (0.00-0.68); EOSINOPHILS PERCENT AUTO 0 % (0-6); Hematocrit 39.8 % (37.0-53.0); Hemoglobin 13.4 g/dL (13.5-17.5); IMMATURE GRAN ABSOLUTE AUTO 0.17 K/mm3 (0.00-0.10); IMMATURE GRAN PERCENT AUTO 1 % (0-1); LYMPHOCYTES ABSOLUTE AUTO 0.67 K/mm3 (0.84-5.20); LYMPHOCYTES PERCENT AUTO 6 % (21-46); MONOCYTES ABSOLUTE AUTO 0.80 K/mm3 (0.16-1.47); MONOCYTES PERCENT AUTO 7 % (4-13); Mean Corpuscular HGB Conc 33.7 g/dL (31.5-36.5); Mean Corpuscular Volume 87 fL (80-100); NEUTROPHILS ABSOLUTE AUTO 10.11 K/mm3 (1.96-9.15); NEUTROPHILS PERCENT AUTO 86 % (41-73); NRBC ABSOLUTE 0.00 K/mm3 (0.00-0.02); NRBC Auto 0.0 /100 WBC (0.0-0.2); Platelet Count 209 K/mm3 (150-400); RDW Coefficient Variation 14.8 % (11.7-14.2); RDW Standard Deviation 47.7 fL (35.1-46.3)
[2025-02-16 05:21] LABS: Anion Gap 6.0 mmol/L (3-11); Blood Urea Nitrogen 36.0 mg/dL (8-24); CO2, Blood 34.0 mmol/L (21-32); Calcium, Blood 9.1 mg/dL (8.5-10.1); Chloride, Blood 101.0 mmol/L (98-108); Creatinine, Blood 0.98 mg/dL (0.60-1.20); Glucose, Blood 186.0 mg/dL (70-99); Potassium, Blood 4.3 mmol/L (3.5-5.5); Sodium, Blood 137.0 mmol/L (136-145)
--- NOTE | 2025-02-16 06:02 | NUR ---
SHIFT SUMMARY: Pt is admitted for COPD exacerbation and is a full code. Is alert and able to make needs known. ADLs have been 1-2 depending on activity but did not get out of bed. Denies pain or discomfort when asked. On 3lpm of O2 to maintain spo2 greater than 88%.
[2025-02-16 07:17] VITALS: BP 120/78
[2025-02-16] MEDS ORDERED: PRED20 PO (11:30)
[2025-02-16] MEDS ORDERED: HUMALOG JU100 UNIT/2 SC (11:31)
--- NOTE | 2025-02-16 12:50 | NUR ---
DISCHARGE NOTE PATIENT A/OX3, LABILE MOODS, COOEPRATIVE WITH CARE. DISCHARGE ORDER RECIEVED AND REPORT CALLED TO JONELLE AT [facility]. IV AND PUREWICK REMOVED PRIOR TO DISCHARGE. PATIENT ASSISTED TO WHEELCHAIR TRANSPORTATION VIA LIFT TRANSFER AND SENT WITH ALL BELINGINGS IN HAND.
== END 2025-02-16 12:30 | DRG 189 ==
LOC: ER 15:46 → ERHOLD 15:47 → MEDS 02-13 08:26 → ENPENDDIS 02-16 11:17 → MEDS 02-16 12:30
PROVIDERS: Emergency Medicine; Nurse Practitioner Acute Care; Student in an Organized Health Care Education/Training Program; ADMIT Internal Medicine
DX: J96.01 Acute respiratory failure with hypoxia (principal); J84.9 Interstitial pulmonary disease, unspecified; J44.1 Chronic obstructive pulmonary disease with (acute) exacerbation; N17.9 Acute kidney failure, unspecified; J96.02 Acute respiratory failure with hypercapnia; I10 Essential (primary) hypertension; J44.9 Chronic obstructive pulmonary disease, unspecified; E11.9 Type 2 diabetes mellitus without complications; G51.0 Bell's palsy; E03.9 Hypothyroidism, unspecified; E78.5 Hyperlipidemia, unspecified; E11.65 Type 2 diabetes mellitus with hyperglycemia; K59.00 Constipation, unspecified; E87.70 Fluid overload, unspecified; Z79.899 Other long term (current) drug therapy
CPT/HCPCS: 36415; 71045; 80048; 80053; 82550; 82803; 82947; 83880; 84484; 85025; 85027; 85379; 87637; 93005; 93010; 94640; 94660; 94664; 94762; 96365; 96375; 96376; 97162; 97530; 99285-25; A6590; A9270; G0378; J1815; J2919; J3475; J7040; J7512

== ENCOUNTER 2025-03-29 06:34 | Emergency (ER) | payer OTHER ==
[~2025-03-29] VITALS: Ht 167.6 cm; Wt 90.7 kg
[~2025-03-29 06:34] MED LIST changes: +HUMALOG JU100 UNIT/2 SC
[2025-03-29 07:02] LABS: BASOPHILS ABSOLUTE AUTO 0.09 K/mm3 (0.00-0.23); BASOPHILS PERCENT AUTO 1 % (0-2); EOSINOPHILS ABSOLUTE AUTO 0.41 K/mm3 (0.00-0.68); EOSINOPHILS PERCENT AUTO 4 % (0-6); Hematocrit 38.7 % (37.0-53.0); Hemoglobin 13.3 g/dL (13.5-17.5); IMMATURE GRAN ABSOLUTE AUTO 0.08 K/mm3 (0.00-0.10); IMMATURE GRAN PERCENT AUTO 1 % (0-1); LYMPHOCYTES ABSOLUTE AUTO 2.25 K/mm3 (0.84-5.20); LYMPHOCYTES PERCENT AUTO 22 % (21-46); MONOCYTES ABSOLUTE AUTO 0.80 K/mm3 (0.16-1.47); MONOCYTES PERCENT AUTO 8 % (4-13); Mean Corpuscular HGB Conc 34.4 g/dL (31.5-36.5); Mean Corpuscular Volume 85 fL (80-100); NEUTROPHILS ABSOLUTE AUTO 6.61 K/mm3 (1.96-9.15); NEUTROPHILS PERCENT AUTO 65 % (41-73); NRBC ABSOLUTE 0.00 K/mm3 (0.00-0.02); NRBC Auto 0.0 /100 WBC (0.0-0.2); Platelet Count 207 K/mm3 (150-400); RDW Coefficient Variation 14.0 % (11.7-14.2); RDW Standard Deviation 43.8 fL (35.1-46.3)
[2025-03-29 07:22] LABS: Alanine Aminotransfer (ALT/SGP 19.0 U/L (12-78); Albumin, Blood 3.1 g/dL (3.4-5.0); Albumin/Globulin Ratio 0.9 (0.8-1.8); Anion Gap 7.0 mmol/L (3-11); Aspartate Aminotrans (AST/SGOT 20.0 U/L (12-37); Bilirubin, Total 0.4 mg/dL (0.1-1.0); Blood Urea Nitrogen 18.0 mg/dL (8-24); CO2, Blood 32.0 mmol/L (21-32); Calcium, Blood 8.7 mg/dL (8.5-10.1); Chloride, Blood 103.0 mmol/L (98-108); Creatinine, Blood 0.9 mg/dL (0.60-1.20); Globulin, Blood 3.4 g/dL (2.2-4.0); Glucose, Blood 118.0 mg/dL (70-99); Potassium, Blood 3.7 mmol/L (3.5-5.5); Sodium, Blood 138.0 mmol/L (136-145); Total Protein, Blood 6.5 g/dL (6.4-8.2)
[2025-03-29 07:40] LABS: Influenza A, PCR NEGATIVE (NEGATIVE); Influenza B, PCR NEGATIVE (NEGATIVE); Resp Syncytial Virus, PCR NEGATIVE (NEGATIVE); SARS-Cov-2 (COVID-19) PCR, MMC NEGATIVE (NEGATIVE)
[2025-03-29 10:45] VITALS: BP 112/75
== END 2025-03-29 10:58 | disposition home or self-care (01) ==
LOC: ER 06:34
PROVIDERS: Emergency Medicine
DX: R06.02 Shortness of breath (principal); J84.9 Interstitial pulmonary disease, unspecified; E11.42 Type 2 diabetes mellitus with diabetic polyneuropathy; I10 Essential (primary) hypertension; M19.90 Unspecified osteoarthritis, unspecified site; J44.9 Chronic obstructive pulmonary disease, unspecified; E03.9 Hypothyroidism, unspecified; E78.5 Hyperlipidemia, unspecified; Z87.891 Personal history of nicotine dependence; Z79.4 Long term (current) use of insulin; Z79.52 Long term (current) use of systemic steroids; Z79.84 Long term (current) use of oral hypoglycemic drugs; Z79.899 Other long term (current) drug therapy
CPT/HCPCS: 71046; 80053; 83880; 84484; 85025; 87637; 93005; 93010; 99285-25

== ENCOUNTER 2025-05-18 06:42 | Observation (INO) | payer OTHER ==
[~2025-05-18] VITALS: Ht 167.6 cm; Wt 95.2 kg
[~2025-05-18 06:42] MED LIST changes: +PANT20 PO; +TRAZ50 PO; +WEGOVY2.4 MG/0.7 SQ
[2025-05-18 07:46] LABS: BASOPHILS ABSOLUTE AUTO 0.07 K/mm3 (0.00-0.23); BASOPHILS PERCENT AUTO 1 % (0-2); EOSINOPHILS ABSOLUTE AUTO 0.24 K/mm3 (0.00-0.68); EOSINOPHILS PERCENT AUTO 2 % (0-6); Hematocrit 38.7 % (37.0-53.0); Hemoglobin 13.1 g/dL (13.5-17.5); IMMATURE GRAN ABSOLUTE AUTO 0.06 K/mm3 (0.00-0.10); IMMATURE GRAN PERCENT AUTO 1 % (0-1); LYMPHOCYTES ABSOLUTE AUTO 1.16 K/mm3 (0.84-5.20); LYMPHOCYTES PERCENT AUTO 10 % (21-46); MONOCYTES ABSOLUTE AUTO 0.58 K/mm3 (0.16-1.47); MONOCYTES PERCENT AUTO 5 % (4-13); Mean Corpuscular HGB Conc 33.9 g/dL (31.5-36.5); Mean Corpuscular Volume 88 fL (80-100); NEUTROPHILS ABSOLUTE AUTO 9.74 K/mm3 (1.96-9.15); NEUTROPHILS PERCENT AUTO 82 % (41-73); NRBC ABSOLUTE 0.00 K/mm3 (0.00-0.02); NRBC Auto 0.0 /100 WBC (0.0-0.2); Platelet Count 205 K/mm3 (150-400); RDW Coefficient Variation 14.2 % (11.7-14.2); RDW Standard Deviation 45.0 fL (35.1-46.3)
[2025-05-18 08:23] LABS: Alanine Aminotransfer (ALT/SGP 21.0 U/L (12-78); Albumin, Blood 2.9 g/dL (3.4-5.0); Albumin/Globulin Ratio 0.7 (0.8-1.8); Anion Gap 8.0 mmol/L (3-11); Aspartate Aminotrans (AST/SGOT 39.0 U/L (12-37); Bilirubin, Total 0.5 mg/dL (0.1-1.0); Blood Urea Nitrogen 19.0 mg/dL (8-24); CO2, Blood 30.0 mmol/L (21-32); Calcium, Blood 8.8 mg/dL (8.5-10.1); Chloride, Blood 103.0 mmol/L (98-108); Creatinine, Blood 0.78 mg/dL (0.60-1.20); Globulin, Blood 4.0 g/dL (2.2-4.0); Glucose, Blood 74.0 mg/dL (70-99); Potassium, Blood 5.1 mmol/L (3.5-5.5); Sodium, Blood 136.0 mmol/L (136-145); Total Protein, Blood 6.9 g/dL (6.4-8.2)
[2025-05-18] MEDS ORDERED: Ipratropium/Albuterol SulF 2.5-0.5MG/3 ML Amp INH ONE (09:55)
[2025-05-18] MEDS ORDERED: BASAGLAR K100 UNIT/1 SC (11:46)
[2025-05-18 11:59] LABS: pH Blood Venous 7.42 (7.34-7.37)
[2025-05-18] MEDS ORDERED: Ipratropium/Albuterol SulF 2.5-0.5MG/3 ML Amp INH PRN (12:20)
[2025-05-18] MEDS ORDERED: FLU VACC TS2025(65UP)/MF59C/PF 45 MCG/0.5 ML SYRINGE IM SCH (12:25)
[2025-05-18] MEDS ORDERED: Haloperidol Lactate Inj. 5 MG/ML Injection IV PRN (15:05)
[2025-05-18] MEDS ORDERED: LORazepam 2 MG/ML 1ML Injection IV PRN (15:05)
[2025-05-18 15:29] VITALS: BP 147/97
[2025-05-18 16:16] LABS: Magnesium, Blood 1.6 mg/dL (1.6-2.4); Phosphorus, Blood 3.4 mg/dL (2.5-4.9); Thyroid Stimulating Hormone 0.776 uIU/mL (0.360-4.800)
[2025-05-18] MEDS ORDERED: Insulin Human Lispro 100 Units/ML 3ML Syringe SC SCH (16:30)
[2025-05-18 19:35] VITALS: BP 142/92
[2025-05-18] MEDS ORDERED: Insulin Glargine-Yfgn 100 Unit/mL 3 ML SYR SC SCH (21:00)
--- NOTE | 2025-05-18 22:23 | NUR ---
Held 2100 [place] 30 units Pt had low BG at 1700 of 59, he was fed and this PM his BG was 140 at 2110. He has very little appetite, I held his 30 units and notified [facility].
[2025-05-19 05:41] VITALS: BP 92/61
[2025-05-19 06:17] LABS: BASOPHILS ABSOLUTE AUTO 0.02 K/mm3 (0.00-0.23); BASOPHILS PERCENT AUTO 0 % (0-2); EOSINOPHILS ABSOLUTE AUTO 0.00 K/mm3 (0.00-0.68); EOSINOPHILS PERCENT AUTO 0 % (0-6); Hematocrit 36.8 % (37.0-53.0); Hemoglobin 12.5 g/dL (13.5-17.5); IMMATURE GRAN ABSOLUTE AUTO 0.06 K/mm3 (0.00-0.10); IMMATURE GRAN PERCENT AUTO 1 % (0-1); LYMPHOCYTES ABSOLUTE AUTO 1.16 K/mm3 (0.84-5.20); LYMPHOCYTES PERCENT AUTO 12 % (21-46); MONOCYTES ABSOLUTE AUTO 0.58 K/mm3 (0.16-1.47); MONOCYTES PERCENT AUTO 6 % (4-13); Mean Corpuscular HGB Conc 34.0 g/dL (31.5-36.5); Mean Corpuscular Volume 88 fL (80-100); NEUTROPHILS ABSOLUTE AUTO 8.17 K/mm3 (1.96-9.15); NEUTROPHILS PERCENT AUTO 82 % (41-73); NRBC ABSOLUTE 0.00 K/mm3 (0.00-0.02); NRBC Auto 0.0 /100 WBC (0.0-0.2); Platelet Count 229 K/mm3 (150-400); RDW Coefficient Variation 14.4 % (11.7-14.2); RDW Standard Deviation 45.6 fL (35.1-46.3)
--- NOTE | 2025-05-19 06:18 | NUR ---
Shift Summary Pt was hypoglycemic during previous day shift, NOC glucose was 140, see previous nursing note. Pt remains on 4L O2 NC. Continent/incontinent, attends changed PRN. Pt had trouble breathing at start of shift and was somewhat wheezy, rcvd breathing treatment from RT and then no further breathing complaints. Lung bases have mild crackles. Pt is AOx4 with some forgetfulness. On bedrest.
[2025-05-19 06:54] LABS: Alanine Aminotransfer (ALT/SGP 19.0 U/L (12-78); Albumin, Blood 2.9 g/dL (3.4-5.0); Albumin/Globulin Ratio 0.9 (0.8-1.8); Anion Gap 6.0 mmol/L (3-11); Aspartate Aminotrans (AST/SGOT 17.0 U/L (12-37); Bilirubin, Total 0.4 mg/dL (0.1-1.0); Blood Urea Nitrogen 20.0 mg/dL (8-24); CO2, Blood 31.0 mmol/L (21-32); Calcium, Blood 8.6 mg/dL (8.5-10.1); Chloride, Blood 104.0 mmol/L (98-108); Creatinine, Blood 0.82 mg/dL (0.60-1.20); Globulin, Blood 3.4 g/dL (2.2-4.0); Glucose, Blood 133.0 mg/dL (70-99); Potassium, Blood 4.1 mmol/L (3.5-5.5); Sodium, Blood 137.0 mmol/L (136-145); Total Protein, Blood 6.3 g/dL (6.4-8.2)
[2025-05-19 07:19] VITALS: BP 92/59
[2025-05-19] MEDS ORDERED: Magnesium Citrate 300 ML BTL PO ONE (09:00)
[2025-05-19] MEDS ORDERED: Polyethylene Glycol 3350 17 gm PO SCH (09:00)
[2025-05-19 16:27] VITALS: BP 131/85
== END 2025-05-19 18:55 ==
LOC: ER 06:42 → MEDS 06:43 → ER 12:16 → MEDS 12:16 → ENPENDDIS 05-19 15:15 → MEDS 05-19 18:55
PROVIDERS: Emergency Medicine; Student in an Organized Health Care Education/Training Program; ADMIT Family Medicine
DX: J96.21 Acute and chronic respiratory failure with hypoxia (principal); J96.22 Acute and chronic respiratory failure with hypercapnia; J44.9 Chronic obstructive pulmonary disease, unspecified; I10 Essential (primary) hypertension; K59.00 Constipation, unspecified; E27.1 Primary adrenocortical insufficiency; E11.42 Type 2 diabetes mellitus with diabetic polyneuropathy; E78.5 Hyperlipidemia, unspecified; E03.9 Hypothyroidism, unspecified; Z79.890 Hormone replacement therapy; Z79.899 Other long term (current) drug therapy
CPT/HCPCS: 36415; 71046; 74177; 80053; 82803; 82947; 83735; 83880; 84100; 84439; 84443; 84481; 84484; 85025; 93005; 93010; 94640; 94664; 94760; 96374; 97110; 97161; 97530; 99285-25; A9270; G0378; J1815; J2060; J2470; J2919; Q9967